=== PATIENT | female | born 2005 | race African-American/Black ===

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

== ENCOUNTER 2025-01-13 05:45 | Emergency (ER) | payer MEDICAID, SELFPAY ==
[2025-01-13 06:13] VITALS: PULSE 100; RESP 18; O2SAT 94; BMI 17.2
[2025-01-13 06:51] LABS: Hemoglobin 12.4 g/dl (12.0-16.0); SCAN SMEAR FLAG 1
[2025-01-13 06:53] LABS: Hematocrit 37.0 % (37.0-47.0); Imm Gran Abs Auto 0.03 X10*3/uL (0.00-0.03); Imm Gran Pct Auto 0.3 % (0.0-0.4); Lymphocytes Absolute Auto 0.6 X10*3/uL (1.2-4.9); MANUAL DIFF FLAG SCAN; Mean Corpuscular HGB Conc 33.5 g/dl (31.0-35.0); Mean Corpuscular Hemoglobin 24.9 pg (27.0-33.0); Mean Corpuscular Volume 74.3 fL (80.0-98.0); NRBC Abs Auto 0.030 X10*3/uL (0.0-0.012); NRBC Pct Auto 0.3 /100WBC (0.0-0.2); PLT ABN DIST 1; Platelet Count 245 X10*3/uL (160-400); Red Blood Count 4.98 X10*6/uL (4.20-5.50); White Blood Count 9.1 X10*3/uL (4.8-10.8)
[2025-01-13 07:00] LABS: Alanine Aminotransferase 31 U/L (0-31); Albumin Level 5.2 g/dL (3.5-5.0); Anion Gap 18 (12-20); Aspartate Amino Transferase 31 U/L (5-31); Blood Urea Nitrogen 16 mg/dL (9-16); Calcium 9.7 mg/dL (8.4-10.2); Carbon Dioxide 18 mmol/L (22-29); Chloride 109 mmol/L (96-108); Creatinine Clr Calc Pharmacy 86.9; Estimated Glomerular Filt Rate > 60; Lipase 37 U/L (8-78); Potassium 3.6 mmol/L (3.3-5.1); Sodium 141 mmol/L (135-145); Total Protein 7.8 g/dL (6.5-8.0)
[2025-01-13 07:27] LABS: Alkaline Phosphatase 79 U/L (39-117)
--- OUTSIDE RECORDS SUMMARY | 2025-01-13 07:46 | XMS_ITS | Clinical Summary ---
Author Organization [employer] Address [address] [place] [address] Care Team Providers Care Rough Rice Tender Name Role Phone Peggy Martin DO Primary Care Provider [phone] Allergies No known active allergies Medications * This document contains information received from the source organization and may not represent a complete record from that organization. naloxone (Narcan) 4 mg/0.1 mL nasal spray FOR SUSPECTED OPIOID OVERDOSE. SPRAY 0.1mL IN ONE NOSTRIL. REPEAT IN ALTERNATE NOSTRIL 2-3 MINUTES IF NEEDED. SEEK MEDICAL ATTENTION IMMEDIATELY EVEN IF PATIENT RESPONDS. 06/08/19 23 Active ondansetron ODT (Zofran-ODT) 4 MG disintegrating tablet Take 4 mg by mouth every 8 (eight) hours if needed. 11/30/19 24 Active pyridoxine (B-6) 50 MG tablet Take 50 mg by mouth Once per day. 03/02/20 24 Active pantoprazole (ProtoNix) 40 MG EC tablet Take 40 mg by mouth Once per day. 02/11/20 24 Active famotidine (Pepcid) 20 MG tablet Take 20 mg by mouth if needed in the morning and at bedtime. 03/02/20 24 Active Fluocinolone Acetonide Scalp (Capulin-Smoothe/FS Scalp) 0.01 % oilIndications:Shashi orrheic dermatitis Apply before bed to a damp scalp. Wrap with head covering. Wash off in AM as directed. Use 3x /week for treatment and 1-2x/week for maintenance. 120 mL 3 03/07/20 24 Active ketoconazole (NIZOral) 2 % shampooIndications :Seborrheic dermatitis Use in AM after applying Capulin-smoothe oil the night before 120 mL 2 03/07/20 24 025 Active atomoxetine (Strattera) 25 MG capsuleIndications :Attention deficit hyperactivity disorder (ADHD), predominantly inattentive type Take 1 capsule (25 mg) by mouth Once per day. Swallow capsule whole; do not open. If opened accidentally, do not touch eyes; wash hands immediately (product is an eye irritant). 30 capsule 08/23/19 25 Active hydrOXYzine HCl (Atarax) 25 MG tabletIndications: Disruptive mood dysregulation disorder (CMS/HCC) Take 1 tab po BID prn anxiety 30 tablet 1 08/23/19 25 Active tacrolimus (Protopic) 0.1 % ointmentIndication s:Atopic dermatitis of face Apply topically to affected areas as directed prn 30 g 3 08/23/19 25 Active mirtazapine (Remeron) 7.5 MG tabletIndications: Disruptive mood dysregulation disorder (CMS/HCC) Take 1 tablet (7.5 mg) by mouth at bedtime. 30 tablet 2 09/25/19 25 Active Hospital, Clinic, or Other Facility Administered Medication Ordered Dose Route Frequency Start Date End Date Status lidocaine 2 % gelIndications:Encounter for initial insertion of intrauterine contraceptive device TOP As needed 09/03/2024 Active Active Problems Patient Care Coordination No te Formatting of this note migh t be different from the original. C3/CM Mena Stoddard RN Problem Noted Date Diagnosed Date Teen parent 08/24/2024 Iron deficiency anemia 02/11/2024 Overview (08/24/2024): Hgb <9 or Hct < 27% OR [...] TIBC Serum iron Folate B12 Reticulocyte count Cannabis abuse 06/07/2022 Disruptive mood dysregulation disorder Attention deficit hyperactivity disorder 021 Mild intermittent asthma 09/08/2016 Resolved Problems Problem Noted Date Diagnosed Date Resolved Date Normal intrauterine , antepartum 06/03/2024 08/24/2024 Encounter for elective induction of labor 06/03/2024 08/24/2024 Overview (08/24/2024): 06/03/24 1900 admit to CBC 1930 VE 1/80/-1 Cooks catheter placed and #1 miso 25mcg oral given Positive GBS test 05/12/2024 08/24/2024 Overview (08/24/2024): Reviewed tx necessary in labor. Hyperemesis affecting , antepartum 01/05/2024 08/24/2024 Overview (08/24/2024): Taking Vit B6, unisom, zofran, & reglan. 01/05/24: at 18w still with extended vomiting--> came to CBC triage for IV hydration. Irregular periods 12/09/2022 08/24/2024 Encounters * This document contains information received from the source organization and may not represent a complete record from that organization. Date Type Department Care Team Description 01/01/2025 Telephone [facility] [address] [place] [address] Peggy Martin, DO Care Management (C3CM follow up call) 11/29/2024 Telephone [facility] [address] [place] [address] Peggy Martin, DO Care Management (C3CM follow up call) 11/29/2024 Travel 11/16/2024 Telephone [facility] [address] [place] [address] Peggy Martin DO No Show (PT no show to 19 yr pe. Transfer patient to adult team. Message forward to Antonia. Per Mario Transfer to erik If possible. ) 11/15/2024 Telephone [facility] [address] [place] [phone] Peggy Martin DO CHART PREP 11/09/2024 Patient Outreach [address] [phone] Peggy Martin DO Pre-visit Planning (SDOH screening is negative and Tobacco screening is positive) 11/06/2024 10:00 AM EDT Procedure Visit [address] [phone] Andressa Capps CNM Checking of intrauterine device (Primary Dx); Screening examination for venereal disease 11/06/2024 Travel 11/05/2024 Telephone [facility] [address] [place] [phone] Nakita Fierro [place] 11/05/[address] [phone] Peggy Martin DO Care Management ([facility] TC #2-lvm) 10/25/[address] [phone] Peggy Martin DO Medication Question 10/24/2024 Patient Outreach [address] [phone] Peggy Martin DO Transition Of Care (Tcm) (HDF- Unscheduled ) 10/17/2024 Orders Only GENERIC EXTERNAL DATA DEPARTMENT Provider, Generic External Data 10/16/[address] [phone] Peggy Martin DO Care Management ([facility] TC #1-unable to lvm) from Last 3 Months Immunizations Immunization Administration Dates Next Due DTaP 06/09/2009, 7,2005,09/01 DTaP, 5 pertussis antigens 2005 Hep A, ped/adol, 2 dose 11/15/2006,05/10/2006 Hep B, Adolescent or Pediatric 2005,2005,2005 HiB, unspecified 11/15/2006,2005, 6 Hib (PRP-T) 2005 IPV 06/09/2009, 6,2005,06/18 Influenza injectable quadriv alent preservative free 02/22/2022,06/17/2021,12/18/2019 Influenza, seasonal, injecta ble, preservative free 02/02/2024 MMR 06/09/2009,05/10/2006 Meningococcal MCV4P ACYW-135 09/08/2016 Pneumococcal Conjugate PCV 13 11/15/2006 ,2005,2005,06/18 Tdap 03/27/2024,09/17/2016 Varicella 06/09/2009,05/10/2006 Social History Tobacco Use Types Packs/Day Years Used Date Smoking Tobacco: Never Passive Smoke Exposure: Never Smokeless Tobacco: Never Tobacco Cessation:Counseling Given: Not Answered Alcohol Use Standard Drinks/Week Comments Yes 0 (1 standard drink = 0.6 oz pur e alcohol) Depression Answer Date Recorded Patient Health Questionnaire-9 Score 12 09/24/2024 Patient Health Questionnaire-9 Score 12 09/24/2024 Last PHQ-9: Questionnaire Data Not on file 0 09/24/2024 Housing Stability Answer Date Recorded What is your housing situation today? I have alison luo 01/25/[address] you li ve. Do you have problems with any of the following? None of the above 01/25/2024 Food Insecurity Answer Date Recorded Within the past 12 months, y ou worried that your food would run out before you got money to buy more: Never True 11/09/2024 Within the past 12 months,th e food you bought just didn't last and you didn't have enough money to get more: Never True Transportation Answer Date Recorded In the past 12 months, has l ack of transportation kept you from medical appts, meetings, work or from getting things needed for daily living? No 01/25/2024 Utilities Answer Date Recorded In the past 12 months, has t he electric, gas, oil or water company threatened to shut off services in your home? No 01/25/2024 Depression Answer Date Recorded Patient Health Questionnaire-2 Score 4 09/24/2024 Internet Access Answer Date Recorded Internet Access Q1 Yes 01/25/2024 Internet Access Q2 Not on file 01/25/2024 Comments No Intention Date Recorded No desire to become (finding) 0 11/06/2024 Sex and Gender Information Value Date Recorded Sex Assigned at Female 01/25/2022 10:18 AM EDT Legal Sex Female 10:18 AM EDT Gender Identity Female 01/25/2022 10:18 AM EDT Sexual Orientation Bisexual 01/25/2022 10 :18 AM EDT Last Filed Vital Signs Vital Sign Reading Time Taken Comments Blood Pressure 98/68 11/06/2024 10:17 AM EDT Pulse 65 11/06/2024 10:17 AM EDT Temperature 36.8 C (98.2 F) 11/06/2024 10:17 AM EDT Respiratory Rate 12 11/06/2024 10:17 AM EDT Oxygen Saturation 98% 11/06/2024 10:17 AM EDT Inhaled Oxygen Concentration - - Weight 47.6 kg (105 lb) 11/06/2024 10:17 AM EDT Height 154.9 cm (5' 1 ) 09/24/2024 3:33 PM EDT Body Mass Index 19.84 09/24/2024 3:33 PM EDT Plan of Treatment Upcoming Encounters Date Type Department Care Team (Late st Contact Info) Description 02/06/2025 2:00 PM EST Office Visit [facility] [address] [place] [address] Amanda Hagan MD [address] [place] [address] Health Maintenance Due Date Last Done Comments HIV Screening 2005 Fluoride Varnish 01/03/2006 Pneumococcal Vaccine: Pediatrics (0 to 5 Years) and At-Risk Patients (6 to 49) Years (1 of 1 - PPSV23) 2011 11/15/2006, 2005, 2005, Additional history exists HPV Vaccines (1 - 3-dose series) 2020 Meningococcal B Vaccine (1 of 2 - Standard) 2021 Hepatitis C Screening 2023 COVID-19 Vaccine ( - season) 2024 02/11/2022, 04/22/2021, 08/31/2020, Additional history exists Influenza Vaccine (#1) 2024 , 02/22/2022, 06/17/2021, Additional history exists Depression Monitoring 03/26/2025 09/24/2024, 025 Disability Screening 08/22/2025 08/22/2024 Tobacco Screening 09/24/2025 09/24/2024 Alcohol/Substance Use Screening 11/06/2025 11/06/2024 Chlamydia and Gonorrhea Screening 11/06/2025 11/06/2024, 05/10/2024, 10/05/2023, Additional history exists Family Planning (PISQ) 11/06/2025 11/06/2024 SDOH Screening 11/09/2025 11/09/2024 DTaP/Tdap/Td Vaccines (8 - Td or Tdap) 03/27/2034 03/27/2024, 09/17/2016, 06/09/2009, Additional history exists Zoster Vaccines (1 of 2) 2055 RSV Patients and Patients Aged 60 years or older (1 - 1-dose 75+ series) 2080 Hepatitis B Vaccines Completed 2005, 2005, 2005 HIB Vaccines Completed 11/15/2006, 10/26, 2005, Additional history exists Hepatitis A Vaccines Completed 11/15/2006, 05/10/19 07 IPV Vaccines Completed 06/09/2009, 10/26, 2005, Additional history exists MMR Vaccines Completed 06/09/2009, 05/10/2006 Varicella Vaccines Completed 06/09/2009, 05/10/2006 Meningococcal Vaccine Aged Out 09/08/2016 No bailee aniya eligible based on patient's age to complete this topic RSV under 20 months Aged Out No longe r eligible based on patient's age to complete this topic Rotavirus Vaccines Aged Out No longer eligible based on patient's age to complete this topic Procedures Procedure Name Priority Date/Time Associated Diagnosis Comments CHLAMYDIA/N. GONORRHOEAE RNA, TMA, UROGENITAL Routine 11/06/2024 11:10 AM EDT Screening examination for venereal disease DRUG MONITOR, PANEL 1, SCREEN, URINE Routine 10/17/2024 10:35 AM EDT URINALYSIS, COMPLETE Routine 10/17/2024 10:35 AM EDT HCG, QL, URINE Routine 10/17/2024 10:35 AM EDT COVID-19 ID NOW (GONZALEZ) Routine 10/17/2024 10:20 AM EDT ETHANOL Routine 10/17/2024 10:20 AM EDT COMPREHENSIVE METABOLIC PANEL Routine 10/17/2024 10:20 AM EDT ACETAMINOPHEN LEVEL Routine 10/17/2024 1 0:20 AM EDT SALICYLATE Routine 10/17/2024 10:20 AM EDT CBC WITH AUTO DIFFERENTIAL Routine 10/17/2024 10:20 AM EDT from Last 3 Months Results * Chlamydia/N. Gonorrhoeae RNA, TMA, Vagina (11/06/2024 11:10 AM EDT) Pathologist [facility] CT PCR NOT DETECTED Not Detect. [facility] Comment:A not detected test result does not exclude the possibilityof infection because test results can be affected byimproper specimen collection, concurrent antibiotic therapy,or the number of organisms in the specimen which may bebelow the sensitivity of the test. As with many diagnostictests, results from the Xpert CT/NG assay should beinterpreted in conjunction with other laboratory andclinical data available to the clinician.Xpert CT/NG performance has not been evaluated in patientsless than 14 years of age. The assay should not be used forthe evaluationof suspected sexual abuse or for other medico-legalindications. Additional testing is recommended in anycircumstance when false positive or false negative resultscould lead to adverse medical, social or psychologicalconsequences. NG PCR NOT DETECTED Not Detect. [facility] Comment:A not detected test result does not exclude the possibilityof infection because test results can be affected byimproper specimen collection, concurrent antibiotic therapy,or the number of organisms in the specimen which may bebelow the sensitivity of the test. As with many diagnostictests, results from the Xpert CT/NG assay should beinterpreted in conjunction with other laboratory andclinical data available to the clinician.Xpert CT/NG performance has not been evaluated in patientsless than 14 years of age. The assay should not be used forthe evaluationof suspected sexual abuse or for other medico-legalindications. Additional testing is recommended in anycircumstance when false positive or false negative resultscould lead to adverse medical, social or psychologicalconsequences. Swab Vaginal structure / Unknown 11/06/2024 11:10 AM EDT 11/06/2024 4:23 PM EDT us Andressa AVALOS LAB MICROBIOLOGY - GENERA L ORDERABLES Final Result [facility] [address] [place] [phone] * (ABNORMAL) Drug Monitoring, Panel 1, Screen, Urine (10/17/2024 10:35 AM EDT) Opiate Screen Urine Not Detected Not Detect [facility] Comment:Opiate cut-off is 30 0 ng/mL.Positive results are unconfirmed and should not be used fornon-medical purposes. Barbiturates, Urine Not Detected Not Detect [facility] Comment:Barbiturate cut-off is 200 ng/mL.Positive results are unconfirmed and should not be used fornon-medical purposes. Phencyclidine Screen Urine Not Detected Not Detect [facility] Comment:Phencyclidine cut-of f is 25 ng/mL.Positive results are unconfirmed and should not be used fornon-medical purposes. Amphetamine Screen Urine Not Detected Not Detect [facility] Comment:Amphetamine cut-off is 1000 ng/mL.Positive results are unconfirmed and should not be used fornon-medical purposes. Benzodiazepines Screen Urine Not Detected Not Detect [facility] Comment:Benzodiazepine cut-o ff is 200 ng/mL.Positive results are unconfirmed and should not be used fornon-medical purposes. Cocaine Screen Urine Not Detected Not Detect [facility] Comment:Cocaine cut-off is 3 00 ng/mL.Positive results are unconfirmed and should not be used fornon-medical purposes. Cannabinoid Screen Urine POSITIVE(A) Not Detect [facility] Comment:Cannabinoid cut-off is 50 ng/mL.Positive results are unconfirmed and should not be used fornon-medical purposes. Methadone Screen, Urine Not Detected Not Detect ng/mL [facility] Comment:Methadone cut-off is 300 ng/mL.Positive results are unconfirmed and should not be used fornon-medical purposes. FENTANYL URINE Not Detected Not Detect [facility] Comment:Fentanyl cut-off is 1 ng/mL.Positive results are unconfirmed and should not be used fornon-medical purposes. Oxycodone Urine Screen Not Detected Not Detect ng/mL [facility] Comment:Oxycodone cut-off is 100 ng/mL.Positive results are unconfirmed and should not be used fornon-medical purposes. Buprenorphine Screen Not Detected Not Detect ng/mL [facility] Comment:Buprenorphine cut-of f is 5 ng/mL.Positive results are unconfirmed and should not be used fornon-medical purposes. 10/17/2024 10:3 5 AM EDT 10/17/2024 10:39 AM EDT us Generic External Data Provider LAB URINE ORDERAB LES Final Result [facility] [address] [place] [phone] * HCG, Qualitative, Urine (10/17/2024 10:35 AM EDT) Urine NEGATIVE NEGATIVE [facility] Comment:This test was develo ped to detect early . Falsenegative results may occur after the 5th - 7th week ofpregnancy when using this test method. If clinicallyindicated, consider a serum hCG. 10/17/2024 10:3 5 AM EDT 10/17/2024 10:39 AM EDT us Generic External Data Provider LAB URINE ORDERAB LES Final Result Performing Organization Address [facility]/ZIP Co de Phone Number [facility] [address] [place] [address] [phone] * (ABNORMAL) Urinalysis Complete (10/17/2024 10:35 AM EDT) Color Urine Yellow [facility] Appearance Urine Clear [facility] PH 6.0 5.0 - 9.0 [facility] Glucose Urine UA Negative Negative mg/dL [facility] Urine Blood Negative Negative [facility] Specific [place] - Urine >=1.030(H) 1.005 - 1.025 [facility] Urine Protein 30 (1+)(A) Neg-Trace mg/dL [facility] Urine Ketones 15 Negative mg/dL [facility] Nitrite Urine Negative Negative [facility] Leukocyte Esterase Urine Trace(A) Negative [facility] RBC Urine 0-2 0 - 2 /HPF [facility] Urine WBC 0-5 0 - 5 /HPF [facility] Urine Squamous Epithelial Cell 3-5 0 - 2 /HPF [facility] Urine Bacteria Trace None Seen [facility] Hyaline Casts, Urine 3-5 0 - 2 /LPF [facility] 10/17/2024 10:3 5 AM EDT 10/17/2024 10:39 AM EDT us Generic External Data Provider LAB URINE ORDERAB LES Final Result Performing Organization Address [facility]/ZIP Co de Phone Number [facility] [address] [place] [address] [phone] * COVID-19 ID NOW (GONZALEZ) (10/17/2024 10:20 AM EDT) IDNOW SERIAL# [id number] [facility] COVID-19 TEST Negative Negative [facility] COVID-19 NOTE See Note [facility] Comment: Results are for the identification of SARS-CoV2 RNA. TheSARS-CoV2 RNA is generally detectable in respiratory samplesduring the acute phase of infection. Positive results areindicative of the presence of SARS-CoV-2 RNA; clinicalcorrelation with patient history and other diagnosticinformation is necessary to determine patient infectionstatus. Positive results do not rule out bacterial infectionor co- infection with other viruses.Testing facilities within the [facility] and itsterritories are required to report all positive results tothe appropriate public health authorities.Negative results should be treated as presumptive and, ifinconsistent with clinical signs and symptoms or necessaryfor patient management, should be tested with differentauthorized or cleared molecular tests. Negative results donot preclude SARS-CoV2 RNA infection and should not be usedas the sole basis for patient management decisions. Negativeresults should be considered in the context of a patient'srecent exposures, history and the presence of clinical signsand symptoms consistent with COVID-19.This test has been authorized by the FDA under an EmergencyUse Authorization (EUA) for use by authorized laboratories.Testing performed on the Gonzalez ID NOW utilizing NAAT. 10/17/2024 10:2 0 AM EDT 10/17/2024 11:05 AM EDT us Generic External Data Provider LAB MOLECULAR ISABEL GNOSTICS ORDERABLES Final Result [facility] [address] [place] [phone] [phone] * Ethanol (10/17/2024 10:20 AM EDT) ETHANOL (MG/DL) IN SER/PLAS <10 mg/dL [facility] Comment:Serum/plasma ethanol results are to be used formedical/treatment purposes only. 10/17/2024 10:2 0 AM EDT 10/17/2024 10:26 AM EDT us Generic External Data Provider LAB BLOOD ORDERAB LES Final Result [facility] [address] [place] [phone] [phone] * (ABNORMAL) CBC auto differential (10/17/2024 10:20 AM EDT) White Blood Count 9.1 4.8 - 10.8 X10*3/uL [facility] Red Blood Count 4.99 4.20 - 5.50 X10*6/uL [facility] Hemoglobin 12.0 12.0 - 16.0 g/dl [facility] Hematocrit 36.5(L) 37.0 - 47.0 % [facility] Mean Corpuscular Volume 73.1(L) 80.0 - 98.0 fL [facility] Mean Corpuscular Hemoglobin 24.0(L) 27.0 - 33.0 pg [facility] Mean Corpuscular HGB Conc 32.9 31.0 - 35.0 g/dl [facility] Red Cell Distribution Width 17.7(H) 11.0 - 16.0 % [facility] Platelet Count 224 160 - 400 X10*3/uL [facility] Mean Platelet Volume 10.5 9.4 - 12.3 fL [facility] Neutrophils Percent Auto 83.0(H) 45 - 73 % [facility] Imm Gran Pct Auto 0.3 0.0 - 0.4 % [facility] Lymphocytes Percent Auto 12.0(L) 20 - 40 % [facility] Monocytes Percent Auto 4.3 2 - 11 % [facility] Eosinophils Percent Auto 0.1 0 - 4 % [facility] Basophils Percent Auto 0.3 0 - 2 % [facility] NRBC Pct Auto 0.0 0.0 - 0.2 /100WBC [facility] Neutrophils Absolute Auto 7.5 2.0 - 8.3 x10*3/uL [facility] Imm Gran Abs Auto 0.03 0.00 - 0.03 X10*3/uL [facility] Lymphocytes Absolute Auto 1.1(L) 1.2 - 4.9 X10*3/uL [facility] Monocytes Absolute Auto 0.4 0.1 - 1.2 X10*3/uL [facility] Eosinophils Absolute Auto 0.0 0.0 - 0.4 X10*3/uL [facility] Basophils Absolute Auto 0.0 0.0 - 0.2 X10*3/uL [facility] NRBC Abs Auto 0.000 0.0 - 0.012 X10*3/uL [facility] 10/17/2024 10:2 0 AM EDT 10/17/2024 10:26 AM EDT Generic External Data Provider LAB BLOOD ORDERAB LES Final Result Performing Organization Address City/[facility]/ZIP Co de Phone Number [facility] [address] [place] [phone] * Acetaminophen level (10/17/2024 10:20 AM EDT) Acetaminophen LAB <3 <30 mcg/mL [facility] 10/17/2024 10:2 0 AM EDT 10/17/2024 10:26 AM EDT Generic External Data Provider LAB BLOOD ORDERAB LES Final Result Performing Organization Address [facility]/ZIP Co de Phone Number [facility] [address] [place] [phone] * (ABNORMAL) Salicylate (10/17/2024 10:20 AM EDT) Salicylate <5.0(L) 15 - 30 mg/dL [facility] 10/17/2024 10:2 0 AM EDT 10/17/2024 10:26 AM EDT us Generic External Data Provider LAB BLOOD ORDERAB LES Final Result [facility] [address] [place] [phone] * (ABNORMAL) Comprehensive Metabolic Panel (10/17/2024 10:20 AM EDT) Sodium 141 135 - 145 mmol/L [facility] Potassium 3.7 3.3 - 5.1 mmol/L [facility] Chloride 109(H) 96 - 108 mmol/L [facility] Carbon Dioxide 23 22 - 29 mmol/L [facility] Anion Gap 13 12 - 20 [facility] Urea Nitrogen (BUN) 18(H) 9 - 16 mg/dL [facility] Creatinine, Serum 0.73 0.5 - 1.4 mg/dL [facility] Creatinine Clr Calc Pharmacy 87.6 [facility] Comment:Provided height and weight: 154.94 cm,44.8 kg.eGFR (calculated from the MDRD study equation) and eCrCl(calculated from the Cockcroft-Gault equation) are based ondifferent parameters and may not yield comparable results.If eCrCl result is absurd, please check patient'sheight/weight. Estimated Glomerular Filt Rate >60 [facility] Comment:Chronic Kidney Disea se: Estimated GFR < 60 mL/min/1.33g7Dekhlh Kidney Disease: Estimated GFR < 15 mL/min/1.73m2 Glucose 92 60 - 115 mg/dL [facility] Calcium 9.2 8.4 - 10.2 mg/dL [facility] Bilirubin, Total 0.8 0.0 - 1.0 mg/dL [facility] Aspartate Amino Transferase 22 5 - 31 U/L [facility] Alanine Aminotransferase 25 0 - 31 U/L [facility] Total Protein 7.5 6.5 - 8.0 g/dL [facility] Albumin Level 4.9 3.5 - 5.0 g/dL [facility] Alkaline Phosphatase 85 39 - 117 U/L [facility] [facility] 10/17/2024 10:2 0 AM EDT 10/17/2024 10:26 AM EDT us Generic External Data Provider LAB BLOOD ORDERAB LES Final Result Performing Organization Address City/State/[facility] Co de Phone Number [facility] [address] [place] [address] [phone] from Last 3 Months Insurance [facility] Care Teams Rough Rice Tender Relationship Specialty Start Date End Date Peggy Martin DO [address] [place] [id number] PCP - General Pediatrics 03/28/18 Syl Muniz Junior Loan Processor 02/13/24
--- OUTSIDE RECORDS SUMMARY | 2025-01-13 07:46 | XMS_ITS | Encounter Summary ---
Author Organization [employer] Address [address] [facility] 7t [place] [address] Care Team Providers Care Insurance Customer Service Specialist Name Role Phone Peggy Martin DO Primary Care Provider [phone] Reason for Visit * Reason Comments Med Refill Encounter Details Date Type Department Care Team (Late st Contact Info) Description 12/27/2022 Refill [facility] [address] [place] [address] Peggy Martin DO [address] [place], [place] [phone] Attention deficit hyperactivity disorder (ADHD), predominantly inattentive type Social History Tobacco Use Types Packs/Day Years Used Date Smoking Tobacco: Never Smokeless Tobacco: Never Alcohol Use Standard Drinks/Week Comments Never 0 (1 standard drink = 0.6 oz pur e alcohol) Depression Answer Date Recorded Patient Health Questionnaire-9 Score 0 07/30/2022 Depression Answer Date Recorded Patient Health Questionnaire-2 Score 0 07/30/2022 Comments Unknown Sex and Gender Information Value [...] Description 02/06/2025 2:00 PM EST Office Visit [facility] [address] [place], [place] [phone] Amanda Hagan MD [address] [place] [address] documented as of this encounter Visit Diagnoses Diagnosis Attention deficit hyperactivity disorder (ADHD), predominantly inattentive type documented in this encounter Additional Health Concerns Assessment Noted Time PHQ-9 Depression Total Score: 0 07/31/19 23 5:07 PM EDT documented as of this encounter Care Teams Insurance Customer Service Specialist Relationship Specialty Start Date End Date Peggy Martin DO [address] [place] [address] PCP - General Pediatrics 03/28/18 Syl Muniz Otr Van Cdl Truck Driver 02/13/24 documented as of this encounter
--- OUTSIDE RECORDS SUMMARY | 2025-01-13 07:46 | XMS_ITS | Encounter Summary ---
Author Organization [employer] Address [address] [facility] 7t [place] [address] Care Team Providers Care Cobol Application Developer Name Role Phone Peggy Martin DO Primary Care Provider [phone] Encounter Details Date Type Department Care Team ([facility] st Contact Info) Description 01/26/2024 Orders Only [facility] [address] [place], [place] [phone] Andressa Capps CNM [address] [place], [place] [phone] Social History Tobacco Use Types Packs/Day Years Used Date Smoking Tobacco: Never Passive Smoke Exposure: Never Smokeless Tobacco: Never Alcohol Use Standard Drinks/Week Comments Never 0 (1 standard drink = 0.6 oz pur e alcohol) Depression Answer Date Recorded Patient Health Questionnaire-9 Score 0 07/30/2022 Housing Stability Answer Date Recorded What is your housing situation today? I have alison luo 01/25/[address] you li ve. Do you have problems with any of the following? None of the above 01/25/2024 Food Insecurity Answer Date Recorded Within the past 12 months, y ou worried that your food would run out before you got money to buy more: Sometimes True 2023 Within the past 12 months,th e food you bought just didn't last and you didn't have enough money to get more: Sometimes True 01/25/2024 Transportation Answer Date Recorded In the past [...] Recorded Patient Health Questionnaire-2 Score 0 07/30/2022 Internet Access Answer Date Recorded Internet Access Q1 Yes 01/25/2024 Internet Access Q2 Not on file 01/25/2024 Comments Yes Sex and Gender Information Value Date Recorded Sex Assigned at Female 01/25/2022 10:18 AM EDT Legal Sex Female 10:18 AM EDT Gender Identity Female 01/25/2022 10:18 AM EDT Sexual Orientation Bisexual 01/25/2022 10 :18 AM EDT documented as of this encounter Plan of Treatment Upcoming Encounters Date Type Department Care Team (Late st Contact Info) Description 02/06/2025 2:00 PM EST Office Visit [facility] [address] [place] [address] Amanda Hagan MD [address] [place] [address] documented as of this encounter Visit Diagnoses Not on filedocumented in this encounter Additional Health Concerns Assessment Noted Time PHQ-9 Depression Total Score: 0 07/31/19 23 5:07 PM EDT documented as of this encounter Care Teams Cobol Application Developer Relationship Specialty Start Date End Date Peggy Martin DO [address] [place] [address] PCP - General Pediatrics 03/28/18 Syl Muniz Assistant Director 02/13/24 documented as of this encounter
--- OUTSIDE RECORDS SUMMARY | 2025-01-13 07:46 | XMS_ITS | Encounter Summary ---
Author Organization [employer] Address [address] [facility] 7t [place] [address] Care Team Providers Care Camera Prototyping Engineer Name Role Phone Peggy Martin DO Primary Care Provider [phone] Reason for Visit * Reason Comments Med Refill Encounter Details Date Type Department Care Team (Late st Contact Info) Description 05/15/2022 Refill [facility] [address] [place] [address] Peggy Martin DO [address] [place], [place] [phone] ADHD (attention deficit hyperactivity disorder), combined type [...] Description 02/06/2025 2:00 PM EST Office Visit [facility] [address] [place] [phone] Amanda Hagan MD [address] [place], [place] [phone] documented as of this encounter Visit Diagnoses Diagnosis ADHD (attention deficit hyperactivity disorder), combined type Attention deficit disorder with hyperactivity documented in this encounter Care Teams Camera Prototyping Engineer Relationship Specialty Start Date End Date Peggy Martin DO [address] [place] [id number] PCP - General Pediatrics 03/28/18 Syl Muniz Automobile Appraiser 02/13/24 documented as of this encounter
--- OUTSIDE RECORDS SUMMARY | 2025-01-13 07:46 | XMS_ITS | Clinical Summary ---
Author Organization [facility] Address [address] [address] Phone Care Team Providers Care Nitric Acid Concentrator Operator Name Role Phone Peggy Martin DO Primary Care Provider [phone] Allergies No known active allergies Medications famotidine [...] (06/03/2024): 06/03/241899 admit to [facility] 1930 VE 1/80/-1 Cooks [...] complaints 06/03/241899 admit to [facility] 1930 VE 1/80/-1 Cooks [...] Assessment & Plan (06/03/2024 7:56 PM EDT): Vistaril ordered for tonight Assessment & Plan (01/03/2024 [...] might be interested in Phexxi GBS pos Feeding Plan Formula Assessment & Plan (06/01/2024 4:57 PM EST): Eloisa is here with her partner. She is doing well but ready for baby to be out! Baby is moving well. Would like membrane sweep today. SVE /-2 soft, posterior. Membranes swept. Discussed risks and benefits of induction. She would like induction as soon as possible. Scheduled for Tuesday evening. Feels comfortable with labor warnings and when to call. Assessment & Plan (05/26/2024 7:49 PM EST): Eloisa is a 19 y.o. at 39w0d doing well. Denies VB/LOF/Ctxs. + FM. Discussed options for VE and Membrane sweep - VE done with consent and cervix still internally closed but soft - she would be interested in membrane sweep at [place] if no spontaneous labor. We discussed post [...] (02/10/2024 8:13 PM EST): Pt presents to [facility] c/o continuous vomiting for the past 18 hours. States she has had short intervals of reprieve and then it would start again. Pt reports stomach pain that feels like her stomach is being ripped out. Baby has been active. She denies vb, lof, ctxs. Pt states the last time she ate was yesterday evening--Buraniya Jerry, then she woke at 2am with vomiting. Pt denies diarrhea, fever, urinary sx. PT tried to take zofran and pepcid today but could not tolerate. Pt has been seen at [facility] for this complaint before. Encounters Date Type Department Care Team Description 11/01/2024 4:00 PM EDT Office Visit [facility] [address] [address] Rigo Boogie, ANDRY Encounter for removal of sutures (Primary Dx) from Last 3 Months Immunizations [...] Standard) 2021 ADOLESCENT UNIVERSAL LIPID SCREENING 2022 CHLAMYDIA SCREENING 10/04/2024 10/05/2023 INFLUENZA VACCINE (#1) 2024 , 02/22/2022, 06/17/2021, Additional history exists COVID-19 VACCINE (2024- season) 2024 02/11/2022, 04/22/2021, 08/31/2020, Additional history exists SMOKING Hx and SMOKELESS TOBACCO SCREENING 06/03/2025 06/03/2024 BMI ASSESSMENT 11/01/2025 11/01/2024 COMBINED DTaP,Tdap,Td (8 - Td or Tdap) 03/27/2034 03/27/2024, 09/17/2016, 06/09/2009, Additional history exists HEPATITIS B VACCINES Completed 2005, 2005, 2005 HEPATITIS A VACCINES Completed 11/15/2006, 05/10/19 HIB VACCINES Completed 11/15/2006, 10/26, 2005, Additional [...] PM EDT Encounter for removal of sutures HEPATITIS C ANTIBODY, QUALITATIVE Routine 11/07/2023 3:20 [...] with no immediate complications Rigo Boogie CNP [place] MISCELLANEOUS SERVI MIRNA Final Result * Hepatitis C antibody, qualitative (11/07/2023 3:20 PM EDT) HCV NON-REACTIV E NON-REACTI VE [facility] Blood 11/07/2023 3:20 PM EDT 11/07/2023 3:30 PM EDT Cristy Garcia CNM LAB BLOOD ORDERABLES F inal Result [address] [address] * Chlamydia Trachomatis and Neisseria Gonorrhoeae Nucleic Acid Detection (10/05/2023 11:18 AM EDT) CHLAMYDIA TRACHOMATIS Not Detected Not Detected [facility] NEISERIA GONORRHOEAE Not Detected Not Detected [facility] SPECIMEN TYPE URINE [facility] Urine (Urine) 10/05/2023 11: 18 AM EDT 10/05/2023 3:25 PM EDT Cristy Garcia CNM NON CULTURE MICROBIOLO GY Final Result Performing Organization Address City/[facility]/ZIP Co de Phone Number [address] [address] from Last 3 Months or Most Recently Relevant to Health Maintenance Insurance C3 ACO C3 ACO [facility] C3 ACO [facility] C3 ACO [facility] C3 [place] [address] [address] [facility] C3 ACO Advance Directives For more information, please contact: [phone] (9AM - 5PM [place], Tuesday-Tuesday) * Full Code (Latest Code Status [...] Code Status Confirmed With: Patient Care Teams Nitric Acid Concentrator Operator Relationship Specialty Start Date End Date Peggy Martin DO [address] [place] [phone] PCP - General Pediatrics 05/16/23 Additional Source Comments The information contained in this document represents components of the legal health record. It is not the complete legal health record.[facility]
[2025-01-13 07:52] VITALS: BP 105/70; PULSE 74; RESP 18; TEMP 36.6; O2SAT 97
--- NOTE | 2025-01-13 08:04 | ED_ITS ---
HPI - Abdominal Pain General Chief Complaint: Abdominal Pain Stated Complaint: abdominal pain and vomiting Time Seen by Provider: 01/13/25 07:41 Source: patient Mode of arrival: ambulatory Limitations: no limitations History of Present Illness ED Provider: HPI narrative: 19-year-old presenting with epigastric discomfort, multiple episodes of vomiting, she is 6 months , smokes marijuana daily, symptoms started becoming worse after eating [employer]. Does not take any medications at home except for Zofran as needed for nausea and vomiting Related Data Previous Rx's ?Medication ?Instructions ?Recorded clonidine HCl 0.1 mg tablet 0.1 mg PO BEDTIME 30 days #30 tabs 10/22/24 nicotine (polacrilex) 4 mg gum 4 mg buccal Q2H PRN laverne otine 10/22/24 cravings 30 days #100 ea nicotine 21 mg/24 hr daily 21 mg transdermal DAILY PRN 10/22/24 transdermal patch smoking cessation 28 days #2 8 ea aripiprazole 2 mg tablet 2 mg PO BEDTIME as directed #14 11/05/24 tabs mirtazapine 15 mg tablet 15 mg PO BEDTIME 30 days #15 tabs 11/05/24 famotidine 20 mg tablet 20 mg PO BEDTIME #30 tabs ondansetron 4 mg disintegrating 4 mg PO Q8H PRN nausea and 01/13/25 tablet vomiting #4 tabs sucralfate 1 gram tablet (Carafate) 1 g PO Q6H 7 days #28 tabs 01/13/25 capsaicin 0.025 % topical cream 1 appl topical QID abd ominal pain 01/14/25 #120 grams prochlorperazine 25 mg rectal 25 mg TX BID PRN nausea and 01/14/25 suppository (Compazine) vomiting #12 ea Allergies Allergy/AdvReac Type Severity Reaction Status Date / Time No Known Allergies Allergy Verified 01/14/25 08:06 Review of Systems Constitutional: Reports as per HPI [facility] Past Medical History Medical History Depression MDD (major depressive disorder) PCOS (polycystic ovarian syndrome) ADHD Asthma Social History Social History Household Members: Significant Other, Family and Children Household Members Other:: Adoptive mother, partner, and their child Housing: House Do you presently have visiting nurse or other home services: No Patient Tobacco Use Status: Current everyday Tobacco user Tobacco use type: Smokeless Tobacco Years Smoked: 5 e-Cigarette/Vaping Use: Currently Using Second Hand Smoke Exposure: No Substance Use Type: Marijuana Advance Directives: No Advance Directives Information Provided: Yes Do you have a plan to hurt others: No Plan service: No Sexual orientation: Straight/Heterosexual Physical Exam ED Exam Exam: General: ?Appears of stated age, in discomfort ? no scleral icterus, dry oral mucosa ? Neck: Supple, no LAD ? ?CV: RRR, no obvious murmurs appreciated ? ?Resp: ?No wheezing rales rhonchi no stridor moving air well ? Abd: ?Bowel sounds are present, epigastric tenderness no rebound no rigidity ? ?MSK: FROM, strength 5/5 all extremities ? Skin: Warm, dry, intact, ? ?Neuro: ?Alert and oriented x3, moving upper and lower extremities symmetrically, no obvious facial asymmetry noted, cranial nerves 2-12 intact Vital Signs: Vital Signs - 24 hr 01/13/25 06:13 01/13/25 07:52 Temperature 97.9 F Pulse Rate 100 74 Respiratory Rate 18 18 Blood Pressure 105/70 Pulse Oximetry 94 97 Oxygen Delivery Method Room Air Room Air BMI result Body Mass Index 17.2 Medical Decision Making Medical Decision Making [facility] Narrative: 8:15 AM 01/13/2025 (Dr. Abraham Jamison): Patient presenting with nausea or vomiting in the setting of daily marijuana use, history of hyperemesis gravidarum, cyclic vomiting syndrome, poor diet, marijuana use disorder, blood work fairly reassuring without any evidence for dehydration or biliary pancreatic pathology, we will check for will medicate, see my discharge instructions, further imaging such as CT or ultrasound is not indicated based on my physical examination. I reviewed her CAT scan done in August of this year that was negative and last year she had abdominal ultrasounds that were negative for ovarian or pelvic pathology Differential Diagnosis Differential Diagnoses: The differential diagnosis associated with the presentation includes (Cholecystitis, pancreatitis, hepatitis, gastritis, cholangitis, choledocholithiasis, cyclic vomiting syndrome, Boerhaave syndrome) Admission/Observation Consideration of admission/observation: Escalation of care including admission/observation considered Lab Data [facility] Lab Attestation statement: I reviewed the patient's lab results. 01/13/25 06:17 01/13/25 06:17 Labs: Lab Results 01/13/25 01/13/25 Range/Units 06:17 09:17 WBC 9.1 (4.8-10.8) X10*3/uL RBC 4.98 (4.20-5.50) X10*6/uL Hgb 12.4 (12.0-16.0) g/dl Hct 37.0 (37.0-47.0) % MCV 74.3 L (80.0-98.0) fL MCH 24.9 L (27.0-33.0) pg MCHC 33.5 (31.0-35.0) g/dl RDW 14.7 (11.0-16.0) % Plt Count 245 (160-400) X10*3/uL MPV 11.2 (9.4-12.3) fL Immature Gran % (Auto) 0.3 (0.0-0.4) % Neut % (Auto) 90.9 H (45-73) % Lymph % (Auto) 6.5 L (20-40) % [place] % (Auto) 2.0 (2-11) % Eos % (Auto) 0.0 (0-4) % Baso % (Auto) 0.3 (0-2) % Lymph # (Auto) 0.6 L (1.2-4.9) X10*3/uL [place] # (Auto) 0.2 (0.1-1.2) X10*3/uL Eos # (Auto) 0.0 (0.0-0.4) X10*3/uL Baso # (Auto) 0.0 (0.0-0.2) X10*3/uL Abs Immat Gran (auto) 0.03 (0.00-0.03) X10*3/uL Absolute Neuts (auto) 8.2 (2.0-8.3) x10*3/uL Absolute Nucleated RBC 0.030 H (0.0-0.012) X10*3/uL Nucleated RBC % (auto) 0.3 H (0.0-0.2) /100WBC Smear Tech's Comments VERIFIED Sodium 141 (135-145) mmol/L Potassium 3.6 (3.3-5.1) mmol/L Chloride 109 H (96-108) mmol/L Carbon Dioxide 18 L (22-29) mmol/L Anion Gap 18 (12-20) BUN 16 (9-16) mg/dL Creatinine 0.68 (0.5-1.4) mg/dL Estim Creat Clear Calc 86.9 Estimated GFR > 60 Random Glucose 128 H (60-115) mg/dL Calcium 9.7 (8.4-10.2) mg/dL Total Bilirubin 1.6 H (0.0-1.0) mg/dL Direct Bilirubin 0.4 (0.0-0.5) mg/dL AST 31 (5-31) U/L ALT 31 (0-31) U/L Alkaline Phosphatase 79 (39-117) U/L Total Protein 7.8 (6.5-8.0) g/dL Albumin 5.2 H (3.5-5.0) g/dL Lipase 37 (8-78) U/L Urine Color Yellow Urine Appearance Clear Urine pH 7.5 (5.0-9.0) Ur Specific [place] >= 1.030 H (1.005-1.025) Urine Protein 30 (1+) H (Neg-Trace) mg/dL Urine Glucose (UA) Negative (Negative) mg/dL Urine Ketones >=160 (Negative) mg/dL Urine Blood Negative (Negative) Urine Nitrite Negative (Negative) Ur Leukocyte Esterase Trace H (Negative) Urine RBC 0-2 (0-2) /HPF Urine WBC 0-5 (0-5) /HPF Ur Squamous Epith Cells 0-2 (0-2) /HPF Urine Bacteria None Seen (None Seen) Hyaline Casts 0-2 (0-2) /LPF Tests considered The following testing was considered but not selected: CT abdomen and pelvis with IV contrast Prescription Management I considered prescription management with: Pain Medication Medications Administered Discontinued Medications Generic Name Dose Route Start Last Admin Trade Name Freq PRN Reason Stop Dose Admin Al Hydroxide/Mg Hydroxide 30 ml 01/13/25 08:05 01/13/25 08:16 Magnesium Hydrox/Alum Hydrox 30 Ml Oral.Susp PO 01/13/25 08:06 30 ml ONCE ONE Administration Droperidol 0.625 mg 01/13/25 08:05 01/13/25 08:15 Droperidol 5 Mg/2 Ml Vial IVPUSH 01/13/25 08:06 0.625 mg ONCE ONE Administration Famotidine 20 mg 01/13/25 08:05 01/13/25 08:16 Famotidine/Pf 20 Mg/2 Ml Vial IVPUSH 01/13/25 08:06 20 mg ONCE ONE Administration Sodium Chloride 1,000 mls @ 999 mls/hr 01/13/25 08:15 01/13/25 09:26 Ns IV 01/13/25 09:15 Infused .Q1H1M JADEN Infusion Lidocaine HCl 15 ml 01/13/25 08:05 01/13/25 08:19 Lidocaine Hcl Viscous 2 % 15 Ml Solution PO 01/13/25 08:06 15 ml ONCE ONE Administration Ondansetron HCl 4 mg 01/13/25 06:18 01/13/25 07:07 Ondansetron Odt 4 Mg Tab.Rapdis TRANSLINGU 01/13/25 06:19 4 mg ONCE ONE Administration Sucralfate 1 gm 01/13/25 08:05 01/13/25 08:17 Sucralfate Oral Suspension 1 Gm/10 Ml Oral.Susp PO 01/13/25 08:06 1 gm ONCE ONE Administration Critical Care Time Critical Care Time Total Critical Care Time: 32 Attestation: Time is exclusive of separately billable procedures. Time includes: direct patient care, patient reassessment, coordination of patient care, interpretation of data (laboratory data, pulse oximetry, arterial blood gases and chest xrays), review of patient's medical records, medical consultation and documentation of patient care. Procedures excluded from critical care time: central intravenous line placement and electrocardiography. Discharge Plan Discharge Clinical Impression: Vomiting Patient Disposition: Home, Self-Care Additional Instructions: For the next 1 week use Carafate 20 minutes before any meals, please eat in the morning, I recommend that you start him morning with drinking a cup of water, followed by old meal, it can be sweetened with honey, you can add a butter make it on milk make it palpable to herself but oatmeal really cold your stomach and after that you can have a cup of coffee, I very much strongly recommend that you completely admits smoking marijuana, this is likely 1 of the major contributors to the fact that you have poor appetite and sensitive stomach, on top of that you have to eat well-balanced meals I recommend not eating fast food, cocaine at home, for the next month or so I recommend soups, steamed meats, vegetables, boiled rice, nothing to fried, nothing spicy, famotidine 20 mg before bedtime, ondansetron as needed for nausea and vomiting, see a PCP for re-evaluation your blood work has been reassuring Any other issues concerns come back to the ER Prescriptions: New sucralfate [Carafate] 1 gram tablet 1 g PO Q6H 7 Days Qty: 28 0RF famotidine 20 mg tablet 20 mg PO BEDTIME Qty: 30 0RF ondansetron 4 mg tablet,disintegrating 4 mg PO Q8H PRN (Reason: nausea and vomiting) Qty: 4 0RF No Action nicotine 21 mg/24 hr Patch 24 Hour 21 mg transdermal DAILY PRN (Reason: smoking cessation) 28 Days Qty: 28 0RF Rx Instructions: remove at bedtime clonidine HCl 0.1 mg Tablet 0.1 mg PO BEDTIME 30 Days Qty: 30 0RF Protocol: Hold for SBP< HOLD for SBP < : 90 nicotine (polacrilex) 4 mg gum 4 mg buccal Q2H PRN (Reason: nicotine cravings) 30 Days Qty: 100 0RF aripiprazole 2 mg tablet 2 mg PO BEDTIME Qty: 14 0RF mirtazapine 15 mg tablet 15 mg PO BEDTIME 30 Days Qty: 15 0RF prochlorperazine [Compazine] 25 mg suppository 25 mg TX BID PRN (Reason: nausea and vomiting) Qty: 12 0RF capsaicin 0.025 % cream 1 appl topical QID Qty: 120 0RF Rx Instructions: do not wash area for at least 30 min after application Interventions: ED Discharge Assessment Last Done: 01/13/25 10:06 Discharge Date/Time: 01/13/25 10:08 Print Language: Faroese
[2025-01-13] MEDS: Magnesium Hydrox/Alum Hydrox 30 ML ORAL.SUSP PO (08:16)
[2025-01-13] MEDS: Sucralfate Oral Suspension 1 GM/10 ML ORAL.SUSP PO (08:17)
[2025-01-13] MEDS: Lidocaine HCl Viscous 2 % 15 ML SOLUTION PO (08:19)
--- NOTE | 2025-01-13 08:51 | MHC.EDTECH ---
pt made aware of a urine specimen needed
[2025-01-13 09:22] VITALS: BP 122/80; PULSE 102; RESP 18; O2SAT 95
[2025-01-13 09:25] LABS: Appearance Urine Clear; Glucose Urine UA Negative (Negative); PH 7.5 (5.0-9.0); Specific Gravity - Urine >= 1.030 (1.005-1.025); UMIC TRIGGER UACC YES
[2025-01-13 10:06] VITALS: BP 122/80; PULSE 102; RESP 18; TEMP 36.9; O2SAT 95
== END 2025-01-13 10:08 | disposition home or self-care (01) ==
PROVIDERS: Emergency Provider Emergency Medicine
DX: R11.10 Vomiting, unspecified (principal); R10.13 Epigastric pain; F17.200 Nicotine dependence, unspecified, uncomplicated; Z71.6 Tobacco abuse counseling
CPT/HCPCS: 36415; 80053; 81001; 82248; 83690; 85025; 87502; 87635; 96361; 96374; 96375; 99284; 99285; J1200; J1308; J1630; J1790

== ENCOUNTER 2025-01-13 16:29 | Emergency (ER) | payer MEDICAID, SELFPAY ==
[2025-01-13 16:46] VITALS: BP 120/68; PULSE 76; RESP 18; TEMP 36.2; O2SAT 100; BMI 18.9
--- NOTE | 2025-01-13 16:47 | ED.GENADULT ---
HPI - General Adult General Chief complaint: Abdominal Pain Stated complaint: was here earlier, abd pain increase Time Seen by Provider: 01/13/25 21:07 Source: patient, RN notes reviewed and old records reviewed Mode of arrival: ambulatory Limitations: no limitations History of Present Illness ED Provider: Dr. Selina Velasquez HPI narrative: 19-year-old female with a history of cannabis hyperemesis syndrome presenting with continued abdominal pain and nausea after being here earlier today with the same complaints. Has a history of cannabis hyperemesis but unfortunately used cannabis yesterday and has been vomiting with the abdominal pain since. She was given multiple medications when she was here earlier today including droperidol and a GI cocktail. Admits that her pain had initially improved but when she got home the pain became worse. Describes periumbilical and upper abdominal pain radiating to her chest. Denies associated diarrhea, fever, shortness of breath, hematochezia or melena, urinary complaints, vaginal bleeding or discharge. Has been feeling well prior to last night. States that she ate [employer] and began vomiting shortly thereafter. States ?I do not think it is food poisoning I think it is the marijuana?. Denies other illicit substance or alcohol use. Related Data Previous Rx's ?Medication ?Instructions ?Recorded clonidine HCl 0.1 mg tablet 0.1 mg PO BEDTIME 30 days #30 tabs 10/22/24 nicotine (polacrilex) 4 mg gum 4 mg buccal Q2H PRN nicotine 10/22/24 cravings 30 days #100 ea nicotine 21 mg/24 hr daily 21 mg transdermal DAILY PRN 10/22/24 transdermal patch smoking cessation 28 days #28 ea aripiprazole 2 mg tablet 2 mg PO BEDTIME as directed #14 11/05/24 tabs mirtazapine 15 mg tablet 15 mg PO BEDTIME 30 days #15 tabs 11/05/24 famotidine 20 mg tablet 20 mg PO BEDTIME #30 tabs 01/13/25 ondansetron 4 mg disintegrating 4 mg PO Q8H PRN nausea and 01/13/25 tablet vomiting #4 tabs sucralfate 1 gram tablet (Carafate) 1 g PO Q6H 7 days #28 tabs 01/13/25 capsaicin 0.025 % topical cream 1 appl topical QID abdominal pain 01/14/25 #120 grams prochlorperazine 25 mg rectal 25 mg MA BID PRN nausea and 01/14/25 suppository (Compazine) vomiting #12 ea Allergies Allergy/AdvReac Type Severity Reaction Status Date / Time No Known Allergies Allergy Verified 01/13/25 16:48 Review of Systems Review of Systems: as per HPI, full review of systems performed and negative but for the above mentioned pertinent positives and negatives. [facility] Past Medical History Medical History Depression MDD (major depressive disorder) PCOS (polycystic ovarian syndrome) ADHD Asthma Social History Social History Household Members: Significant Other, Family and Children Household Members Other:: Adoptive mother, partner, and their child Housing: House Do you presently have visiting nurse or other home services: No Patient Tobacco Use Status: Current everyday Tobacco user Tobacco use type: Smokeless Tobacco Years Smoked: 5 Smoked in Last 30 Days: Yes e-Cigarette/Vaping Use: Currently Using Second Hand Smoke Exposure: No Use of substances other than those prescribed or required for medical reasons: No Substance Use Type: Marijuana Advance Directives: No Advance Directives Information Provided: No Patient : No service: No Sexual orientation: Straight/Heterosexual Physical Exam ED Exam Exam: GENERAL: Ill-Appearing, appears uncomfortable. SKIN: Normal skin color for ethnicity, warm, dry, no rashes noted. HEENT:? Normocephalic, atraumatic, no stridor, dry mucous membranes, dentition intact, EOMI. NECK: Soft, supple, full ROM, midline structures nontender, no step-offs, no deformities, no lymphadenopathy. CHEST: Heart regular tachycardia, no murmurs, symmetric chest rise and fall. PULMONARY: Clear to auscultation bilaterally, diminished at the bases, no labored breathing, no wheezes/rhales/rhonchi. ABDOMINAL: Soft, nondistended, diffusely tender to palpation without rebound or guarding, positive bowel sounds in all quadrants. : Deferred. MUSCULOSKELETAL: Normal tone, full range of motion, no deformities, no peripheral edema. NEURO: Alert and oriented x3, CN II through XII intact, equal strength and sensation bilateral upper and lower extremities, no focal neurologic deficits.? PSYCHIATRIC: Flat affect, fluid speech, good eye contact and appropriate demeanor. Vital Signs: Vital Signs - 24 hr 01/13/25 16:46 01/13/25 17:02 01/13/25 20:22 Temperature 97.1 F 100.6 F H 99.4 F Pulse Rate 76 77 88 Respiratory Rate 18 16 16 Blood Pressure 120/68 126/76 132/85 Pulse Oximetry 100 100 97 Oxygen Delivery Method Room Air Room Air Room Air BMI result Body Mass Index 18.9 Course Course Course Narrative: This is a rapid medical exam performed by Yovany Das NP: Additional HPI, ROS, PE not included below will be deferred to primary provider. Patient is a 19y/o F 6 mos post , daily cannabis use presenting to the ED with ongoing epigastric pain. Seen here this morning. Able to tolerate fluids, hasn't tried eating due to pain. Better with heat. Plan; will repeat labs Medications Administered Discontinued Medications Generic Name Dose Route Start Last Admin Trade Name Freq PRN Reason Stop Dose Admin Diphenhydramine HCl 50 mg 01/13/25 21:23 01/13/25 21:29 Diphenhydramine Hcl 50 Mg/Ml Vial IVPUSH 01/13/25 21:24 50 mg ONCE ONE Administration Haloperidol Lactate 5 mg 01/13/25 21:23 01/13/25 21:29 Haloperidol Lactate 5 Mg/Ml Vial IVPUSH 01/13/25 21:24 5 mg STAT STA Administration Medical Decision Making Medical Decision Making [facility] Narrative: Patient presents today with a chief complaint of vomiting, epigastric pain. Differential diagnosis includes surgical emergency such as obstruction, enteritis, hyperglycemia, acidosis, food or drug ingestion, pancreatitis, CVA, allergic reaction such as anaphylaxis, cannabis hyperemesis syndrome or cyclic vomiting syndrome, among many others.? Patient is not showing signs of acute dehydration or hemodynamic instability.? They are having associated abdominal pain. ? Blood work is reassuring. She is starting to feel better after haloperidol and diphenhydramine. We will see how she does in the next 1/2 hour or so. If she improves, we will attempt p.o. trial. If she can not improve, we will obtain abdominal imaging. 12:49 AM 01/14/2025 (Dr. Selina Velasquez, D.O.) patient resting, feeling improved after medications. Tolerating oral intake. Using shared decision making, plan for discharge home to follow-up with primary care and/or specialist. Patient understands and agrees with plan for discharge. Discharged home in stable condition. Differential Diagnosis Differential Diagnoses: The differential diagnosis associated with the presentation includes (As above) Admission/Observation Consideration of admission/observation: Escalation of care including admission/observation considered Lab Data MDM Lab Attestation statement: I reviewed the patient's lab results. 01/13/25 16:57 01/13/25 16:57 Labs: Lab Results 01/13/25 01/13/25 Range/Units 16:57 22:26 WBC 8.2 (4.8-10.8) X10*3/uL RBC 4.68 (4.20-5.50) X10*6/uL Hgb 11.6 L (12.0-16.0) g/dl Hct 34.5 L (37.0-47.0) % MCV 73.7 L (80.0-98.0) fL MCH 24.8 L (27.0-33.0) pg MCHC 33.6 (31.0-35.0) g/dl RDW 15.0 (11.0-16.0) % Plt Count 231 (160-400) X10*3/uL MPV 10.8 (9.4-12.3) fL Immature Gran % (Auto) 0.2 (0.0-0.4) % Neut % (Auto) 87.7 H (45-73) % Lymph % (Auto) 7.1 L (20-40) % [place] % (Auto) 4.8 (2-11) % Eos % (Auto) 0.0 (0-4) % Baso % (Auto) 0.2 (0-2) % Lymph # (Auto) 0.6 L (1.2-4.9) X10*3/uL [place] # (Auto) 0.4 (0.1-1.2) X10*3/uL Eos # (Auto) 0.0 (0.0-0.4) X10*3/uL Baso # (Auto) 0.0 (0.0-0.2) X10*3/uL Abs Immat Gran (auto) 0.02 (0.00-0.03) X10*3/uL Absolute Neuts (auto) 7.2 (2.0-8.3) x10*3/uL Absolute Nucleated RBC 0.000 (0.0-0.012) X10*3/uL Nucleated RBC % (auto) 0.0 (0.0-0.2) /100WBC Sodium 140 (135-145) mmol/L Potassium 3.5 (3.3-5.1) mmol/L Chloride 111 H (96-108) mmol/L Carbon Dioxide 18 L (22-29) mmol/L Anion Gap 15 (12-20) BUN 10 (9-16) mg/dL Creatinine 0.71 (0.5-1.4) mg/dL Estim Creat Clear Calc 91.2 Estimated GFR > 60 Random Glucose 97 (60-115) mg/dL Calcium 9.2 (8.4-10.2) mg/dL Total Bilirubin 1.5 H (0.0-1.0) mg/dL AST 36 H (5-31) U/L ALT 48 H (0-31) U/L Alkaline Phosphatase 73 (39-117) U/L Total Protein 7.3 (6.5-8.0) g/dL Albumin 5.0 (3.5-5.0) g/dL Lipase 31 (8-78) U/L COVID-19 (GATO) Negative (Negative) COVID-19 Clin Com See Note Influenza Type A (CARMEN) Negative (Negative) Influenza Type B (CARMEN) Negative (Negative) Influenza A & B Note See Note Independent Historian Clinical information obtained from an independent historian. History obtained from or confirmed by: Parent External Record Review External record reviewed: Inpatient record Prescription Management I considered prescription management with: Pain Medication and Other (Antiemetics) Chronic Conditions Patient?s care impacted by: Other (Major depressive disorder, PCOS, asthma, cannabis hyperemesis syndrome) Discharge Plan Discharge Clinical Impression: Cannabinoid hyperemesis syndrome Patient Disposition: Home, Self-Care Instructions: Cyclic Vomiting Syndrome (ED) Additional Instructions: Since if your nausea is not controlled with ondansetron, you may try the prochlorperazine suppository. If you continue to have abdominal pain, try rubbing capsaicin cream on your abdomen. You can do this up to 4 times a day. Do not wash the area off immediately after use. Return to the emergency department with any new or worsening symptoms including: Worsening abdominal pain despite medications, fevers greater than 100 degrees, inability to tolerate food or drink, any new symptom that concerns you. Prescriptions: New prochlorperazine [Compazine] 25 mg suppository 25 mg MA BID PRN (Reason: nausea and vomiting) Qty: 12 0RF capsaicin 0.025 % cream 1 appl topical QID Qty: 120 0RF Rx Instructions: do not wash area for at least 30 min after application No Action nicotine 21 mg/24 hr Patch 24 Hour 21 mg transdermal DAILY PRN (Reason: smoking cessation) 28 Days Qty: 28 0RF Rx Instructions: remove at bedtime clonidine HCl 0.1 mg Tablet 0.1 mg PO BEDTIME 30 Days Qty: 30 0RF Protocol: Hold for SBP< HOLD for SBP < : 90 nicotine (polacrilex) 4 mg gum 4 mg buccal Q2H PRN (Reason: nicotine cravings) 30 Days Qty: 100 0RF aripiprazole 2 mg tablet 2 mg PO BEDTIME Qty: 14 0RF mirtazapine 15 mg tablet 15 mg PO BEDTIME 30 Days Qty: 15 0RF sucralfate [Carafate] 1 gram tablet 1 g PO Q6H 7 Days Qty: 28 0RF famotidine 20 mg tablet 20 mg PO BEDTIME Qty: 30 0RF ondansetron 4 mg tablet,disintegrating 4 mg PO Q8H PRN (Reason: nausea and vomiting) Qty: 4 0RF Print Language: Ukrainian
[2025-01-13 17:02] VITALS: BP 126/76; PULSE 77; RESP 16; TEMP 38.1; O2SAT 100
--- OUTSIDE RECORDS SUMMARY | 2025-01-13 17:02 | XMS_ITS | Encounter Summary ---
Author Organization [employer] Address [address] [facility] [address] [place] [address] Care Team Providers Care Inorganic Chemical Technician Name Role Phone Peggy Martin DO Primary Care Provider [phone] Reason for Visit * Reason Comments Med Refill Encounter Details Date Type Department Care Team (Late st Contact Info) Description 05/15/2022 Refill [facility] [address] [place] [address] Peggy Martin DO [address] [place], [place] [id number] ADHD (attention deficit hyperactivity disorder), combined type [...] Office Visit [facility] [address] [place] [address] [phone] Amanda Hagan MD [address] [place], [place] [phone] documented as of this encounter Visit Diagnoses Diagnosis ADHD (attention deficit hyperactivity disorder), combined type Attention deficit disorder with hyperactivity documented in this encounter Care Teams Inorganic Chemical Technician Relationship Specialty Start Date End Date Peggy Martin DO [address] [place] [id number] PCP - General Pediatrics 03/28/18 Syl Muniz [employer] Installation Helper 02/13/24 documented as of this encounter
--- OUTSIDE RECORDS SUMMARY | 2025-01-13 17:02 | XMS_ITS | Clinical Summary ---
Author Organization [facility] Address [address] [address] Phone Care Team Providers Care Checkering Machine Adjuster Name Role Phone Peggy Martin DO Primary Care Provider [phone] Allergies No known active allergies Medications famotidine [...] would be interested in membrane sweep at [place] if no spontaneous labor. We discussed post [...] (02/10/2024 8:13 PM EST): Pt presents to [facility] c/o continuous vomiting for the past 18 hours. States she has had short intervals of reprieve and then it would start again. Pt reports stomach pain that feels like her stomach is being ripped out. Baby has been active. She denies vb, lof, ctxs. Pt states the last time she ate was yesterday evening--Burani[employer] Jeryr, then she woke at 2am with vomiting. Pt denies diarrhea, fever, urinary sx. PT tried to take zofran and pepcid today but could not tolerate. Pt has been seen at [facility] for this complaint before. Encounters Date Type Department Care Team Description 11/01/2024 4:00 PM EDT Office Visit [facility] [address] [address] Rigo Boogie, ANDRY Encounter for removal of [...] with no immediate complications Rigo Boogie CNP [facility] Final Result * Hepatitis C antibody, qualitative (11/07/2023 3:20 PM EDT) HCV NON-REACTIV E NON-REACTI VE [facility] Blood 11/07/2023 3:20 PM EDT 11/07/2023 3:30 PM EDT Cristy aGrcia CNM LAB BLOOD ORDERABLES F inal Result [address] [address] * Chlamydia Trachomatis and Neisseria Gonorrhoeae Nucleic Acid Detection (10/05/2023 11:18 AM EDT) CHLAMYDIA TRACHOMATIS Not Detected Not Detected [facility] NEISERIA GONORRHOEAE Not Detected Not Detected [facility] SPECIMEN TYPE URINE [facility] Urine (Urine) 10/05/2023 11: 18 AM EDT 10/05/2023 3:25 PM EDT Cristy Garcia CNM NON CULTURE MICROBIOLO GY Final Result Performing Organization Address City/[facility]/ZIP Co de Phone Number [address] [phone] from Last 3 Months or Most Recently Relevant to Health Maintenance Insurance C3 ACO C[employer]CO [facility] C3 [facility]CO [facility] C3 ACO [facility] C3 [place] [address] [place] [address] [facility] C3 ACO Advance Directives For more information, please contact: [phone] (9AM - 5PM [place], Tuesday-Tuesday) * Full [...] Code Status Confirmed With: Patient Care Teams Checkering Machine Adjuster Relationship Specialty Start Date End Date Peggy Martin DO [address] [place] [id number] PCP - General Pediatrics 05/16/23 Additional Source Comments The information contained in this document represents components of the legal health record. It is not the complete legal health record.[facility]
--- OUTSIDE RECORDS SUMMARY | 2025-01-13 17:02 | XMS_ITS | Clinical Summary ---
Author Organization [employer] Address [address] [facility] [address] [place] [address] Care Team Providers Care Cotton Bag Sewer Name Role Phone Peggy Martin DO Primary Care Provider [phone] Allergies No known active allergies Medications * [...] bedtime. 03/02/20 24 Active Fluocinolone Acetonide Scalp ([place]-Smoothe/FS Scalp) 0.01 % oilIndications:Shashi orrheic dermatitis Apply before bed to a damp scalp. Wrap with head covering. Wash off in AM as directed. Use 3x /week for treatment and 1-2x/week for maintenance. 120 mL 3 03/07/20 24 Active ketoconazole (NIZOral) 2 % shampooIndications :Seborrheic dermatitis Use in AM after applying [place]-smoothe oil the night before 120 mL 2 [...] Type Department Care Team Description 01/01/2025 Telephone [facility] [address] [place] [address] Peggy Martin, DO Care Management (C3CM follow up call) 11/29/2024 Telephone [facility] [address] [place] [address] Peggy Martin, DO Care Management (C3CM follow up call) 11/29/2024 Travel 11/16/2024 Telephone [facility] [address] [place] [address] Peggy Martin DO No Show (PT no show to 19 yr pe. Transfer patient to adult team. Message forward to Antonia. Per Mario Transfer to erik If possible. ) 11/15/2024 Telephone [facility] [address] [place] [phone] Peggy Martin DO CHART PREP 11/09/2024 Patient Outreach [address] [address] Peggy Martin DO Pre-visit Planning (SDOH screening is negative and Tobacco screening is positive) 11/06/2024 10:00 AM EDT Procedure Visit [address] [address] Andressa Capps CNM Checking of intrauterine device (Primary Dx); Screening examination for venereal disease 11/06/2024 Travel 11/05/2024 Telephone [facility] [address] [place] [phone] Nakita Fierro [place] 11/05/[address] [address] Peggy Martin DO Care Management ([facility] TC #2-lvm) 10/25/[address] [address] Peggy Martin DO Medication Question 10/24/2024 Patient Outreach [address] [address] Peggy Martin DO Transition Of Care (Tcm) (HDF- Unscheduled ) 10/17/2024 Orders Only GENERIC EXTERNAL DATA DEPARTMENT Provider, Generic External Data 10/16/[address] [address] Peggy Martin DO Care Management ([facility] TC #1-unable to lvm) from Last 3 [...] Description 02/06/2025 2:00 PM EST Office Visit [facility] [address] [place] [address] Amanda Hagan MD [address] [place] [address] Health Maintenance Due Date Last Done Comments [...] TMA, Vagina (11/06/2024 11:10 AM EDT) Pathologist [facility] CT PCR NOT DETECTED Not Detect. [facility] Comment:A not detected test result [...] psychologicalconsequences. NG PCR NOT DETECTED Not Detect. [facility] Comment:A not detected test result [...] MICROBIOLOGY - GENERA L ORDERABLES Final Result [facility] [address] [place] [phone] * (ABNORMAL) Drug Monitoring, Panel 1, Screen, Urine (10/17/2024 10:35 AM EDT) Opiate Screen Urine Not Detected Not Detect [facility] Comment:Opiate cut-off is 30 0 ng/mL.Positive results are unconfirmed and should not be used fornon-medical purposes. Barbiturates, Urine Not Detected Not Detect [facility] Comment:Barbiturate cut-off is 200 ng/mL.Positive results are unconfirmed and should not be used fornon-medical purposes. Phencyclidine Screen Urine Not Detected Not Detect [facility] Comment:Phencyclidine cut-of f is 25 ng/mL.Positive results are unconfirmed and should not be used fornon-medical purposes. Amphetamine Screen Urine Not Detected Not Detect [facility] Comment:Amphetamine cut-off is 1000 ng/mL.Positive results are unconfirmed and should not be used fornon-medical purposes. Benzodiazepines Screen Urine Not Detected Not Detect [facility] Comment:Benzodiazepine cut-o ff is 200 ng/mL.Positive results are unconfirmed and should not be used fornon-medical purposes. Cocaine Screen Urine Not Detected Not Detect [facility] Comment:Cocaine cut-off is 3 00 ng/mL.Positive results are unconfirmed and should not be used fornon-medical purposes. Cannabinoid Screen Urine POSITIVE(A) Not Detect [facility] Comment:Cannabinoid cut-off is 50 ng/mL.Positive results are unconfirmed and should not be used fornon-medical purposes. Methadone Screen, Urine Not Detected Not Detect ng/mL [facility] Comment:Methadone cut-off is 300 ng/mL.Positive results are unconfirmed and should not be used fornon-medical purposes. FENTANYL URINE Not Detected Not Detect [facility] Comment:Fentanyl cut-off is 1 ng/mL.Positive results are unconfirmed and should not be used fornon-medical purposes. Oxycodone Urine Screen Not Detected Not Detect ng/mL [facility] Comment:Oxycodone cut-off is 100 ng/mL.Positive results are unconfirmed and should not be used fornon-medical purposes. Buprenorphine Screen Not Detected Not Detect ng/mL [facility] Comment:Buprenorphine cut-of f is 5 ng/mL.Positive results are unconfirmed and should not be used fornon-medical purposes. 10/17/2024 10:3 5 AM EDT 10/17/2024 10:39 AM EDT us Generic External Data Provider LAB URINE ORDERAB LES Final Result [facility] [address] [place] [address] [phone] * HCG, Qualitative, Urine (10/17/2024 10:35 AM EDT) Urine NEGATIVE NEGATIVE [facility] Comment:This test was develo ped to detect early . Falsenegative results may occur after the 5th - 7th week ofpregnancy when using this test method. If clinicallyindicated, consider a serum hCG. 10/17/2024 10:3 5 AM EDT 10/17/2024 10:39 AM EDT us Generic External Data Provider LAB URINE ORDERAB LES Final Result Performing Organization Address [facility] [address] [facility]/ZIP Co de Phone Number [facility] [address] [place] [address] [phone] * (ABNORMAL) Urinalysis Complete (10/17/2024 10:35 AM EDT) Color Urine Yellow [facility] Appearance Urine Clear [facility] PH 6.0 5.0 - 9.0 [facility] Glucose Urine UA Negative Negative mg/dL [facility] Urine Blood Negative Negative [facility] Specific [place] - Urine >=1.030(H) 1.005 - 1.025 [facility] Urine Protein 30 (1+)(A) Neg-Trace mg/dL [facility] Urine Ketones 15 Negative mg/dL [facility] Nitrite Urine Negative Negative [facility] Leukocyte Esterase Urine Trace(A) Negative [facility] RBC Urine 0-2 0 - 2 /HPF [facility] Urine WBC 0-5 0 - 5 /HPF [facility] Urine Squamous Epithelial Cell 3-5 0 - 2 /HPF [facility] Urine Bacteria Trace None Seen [facility] Hyaline Casts, Urine 3-5 0 - 2 /LPF [facility] 10/17/2024 10:3 5 AM EDT 10/17/2024 10:39 AM EDT us Generic External Data Provider LAB URINE ORDERAB LES Final Result Performing Organization Address [facility] [address]/ZIP Co de Phone Number [facility] [address] [place] [address] [phone] * COVID-19 ID NOW (GONZALEZ) (10/17/2024 10:20 AM EDT) IDNOW SERIAL# [id number] [facility] COVID-19 TEST Negative Negative [facility] COVID-19 NOTE See Note [facility] Comment: Results are for the identification of SARS-CoV2 RNA. TheSARS-CoV2 RNA is generally detectable in respiratory samplesduring the acute phase of infection. Positive results areindicative of the presence of SARS-CoV-2 RNA; clinicalcorrelation with patient history and other diagnosticinformation is necessary to determine patient infectionstatus. Positive results do not rule out bacterial infectionor co- infection with other viruses.Testing facilities within the [facility] and itsterritories are required to report all [...] LAB MOLECULAR ISABEL GNOSTICS ORDERABLES Final Result [facility] [address] [place] [phone] * Ethanol (10/17/2024 10:20 AM EDT) ETHANOL (MG/DL) IN SER/PLAS <10 mg/dL [facility] Comment:Serum/plasma ethanol results are to be used formedical/treatment purposes only. 10/17/2024 10:2 0 AM EDT 10/17/2024 10:26 AM EDT us Generic External Data Provider LAB BLOOD ORDERAB LES Final Result [facility] [address] [place] [phone] [phone] * (ABNORMAL) CBC auto differential (10/17/2024 10:20 AM EDT) White Blood Count 9.1 4.8 - 10.8 X10*3/uL [facility] Red Blood Count 4.99 4.20 - 5.50 X10*6/uL [facility] Hemoglobin 12.0 12.0 - 16.0 g/dl [facility] Hematocrit 36.5(L) 37.0 - 47.0 % [facility] Mean Corpuscular Volume 73.1(L) 80.0 - 98.0 fL [facility] Mean Corpuscular Hemoglobin 24.0(L) 27.0 - 33.0 pg [facility] Mean Corpuscular HGB Conc 32.9 31.0 - 35.0 g/dl [facility] Red Cell Distribution Width 17.7(H) 11.0 - 16.0 % [facility] Platelet Count 224 160 - 400 X10*3/uL [facility] Mean Platelet Volume 10.5 9.4 - 12.3 fL [facility] Neutrophils Percent Auto 83.0(H) 45 - 73 % [facility] Imm Gran Pct Auto 0.3 0.0 - 0.4 % [facility] Lymphocytes Percent Auto 12.0(L) 20 - 40 % [facility] Monocytes Percent Auto 4.3 2 - 11 % [facility] Eosinophils Percent Auto 0.1 0 - 4 % [facility] Basophils Percent Auto 0.3 0 - 2 % [facility] NRBC Pct Auto 0.0 0.0 - 0.2 /100WBC [facility] Neutrophils Absolute Auto 7.5 2.0 - 8.3 x10*3/uL [facility] Imm Gran Abs Auto 0.03 0.00 - 0.03 X10*3/uL [facility] Lymphocytes Absolute Auto 1.1(L) 1.2 - 4.9 X10*3/uL [facility] Monocytes Absolute Auto 0.4 0.1 - 1.2 X10*3/uL [facility] Eosinophils Absolute Auto 0.0 0.0 - 0.4 X10*3/uL [facility] Basophils Absolute Auto 0.0 0.0 - 0.2 X10*3/uL [facility] NRBC Abs Auto 0.000 0.0 - 0.012 X10*3/uL [facility] 10/17/2024 10:2 0 AM EDT 10/17/2024 10:26 AM EDT Generic External Data Provider LAB BLOOD ORDERAB LES Final Result Performing Organization Address City/[facility] [address] [facility]/ZIP Co de Phone Number [facility] [address] [place] [phone] * Acetaminophen level (10/17/2024 10:20 AM EDT) Acetaminophen LAB <3 <30 mcg/mL [facility] 10/17/2024 10:2 0 AM EDT 10/17/2024 10:26 AM EDT Generic External Data Provider LAB BLOOD ORDERAB LES Final Result Performing Organization Address [facility]/ZIP Co de Phone Number [facility] [address] [place] [address] [phone] * (ABNORMAL) Salicylate (10/17/2024 10:20 AM EDT) Salicylate <5.0(L) 15 - 30 mg/dL [facility] 10/17/2024 10:2 0 AM EDT 10/17/2024 10:26 AM EDT us Generic External Data Provider LAB BLOOD ORDERAB LES Final Result [facility] [address] [place] [phone] [phone] * (ABNORMAL) Comprehensive Metabolic Panel (10/17/2024 10:20 AM EDT) Sodium 141 135 - 145 mmol/L [facility] Potassium 3.7 3.3 - 5.1 mmol/L [facility] Chloride 109(H) 96 - 108 mmol/L [facility] Carbon Dioxide 23 22 - 29 mmol/L [facility] Anion Gap 13 12 - 20 [facility] Urea Nitrogen (BUN) 18(H) 9 - 16 mg/dL [facility] Creatinine, Serum 0.73 0.5 - 1.4 mg/dL [facility] Creatinine Clr Calc Pharmacy 87.6 [facility] Comment:Provided height and weight: 154.94 cm,44.8 kg.eGFR (calculated from the MDRD study equation) and eCrCl(calculated from the Cockcroft-Gault equation) are based ondifferent parameters and may not yield comparable results.If eCrCl result is absurd, please check patient'sheight/weight. Estimated Glomerular Filt Rate >60 [facility] Comment:Chronic Kidney Disea se: Estimated GFR < 60 mL/min/1.00g8Qexyck Kidney Disease: Estimated GFR < 15 mL/min/1.73m2 Glucose 92 60 - 115 mg/dL [facility] Calcium 9.2 8.4 - 10.2 mg/dL [facility] Bilirubin, Total 0.8 0.0 - 1.0 mg/dL [facility] Aspartate Amino Transferase 22 5 - 31 U/L [facility] Alanine Aminotransferase 25 0 - 31 U/L [facility] Total Protein 7.5 6.5 - 8.0 g/dL [facility] Albumin Level 4.9 3.5 - 5.0 g/dL [facility] Alkaline Phosphatase 85 39 - 117 U/L [facility] 10/17/2024 10:2 0 AM EDT 10/17/2024 10:26 AM EDT us Generic External Data Provider LAB BLOOD ORDERAB LES Final Result Performing Organization Address City/State/[facility] Co de Phone Number [facility] [address] [place] [address] [phone] from Last 3 Months Insurance [email or web address] [email or web address] Care Teams Cotton Bag Sewer Relationship Specialty Start Date End Date Peggy Martin DO [address] [place] [phone] PCP - General Pediatrics 03/28/18 Syl Muniz Supervisor [employer]rication [employer] 02/13/24
[2025-01-13 17:03] LABS: Hematocrit 34.5 % (37.0-47.0); Hemoglobin 11.6 g/dl (12.0-16.0); Imm Gran Abs Auto 0.02 X10*3/uL (0.00-0.03); Imm Gran Pct Auto 0.2 % (0.0-0.4); Lymphocytes Absolute Auto 0.6 X10*3/uL (1.2-4.9); MANUAL DIFF FLAG NO; Mean Corpuscular HGB Conc 33.6 g/dl (31.0-35.0); Mean Corpuscular Hemoglobin 24.8 pg (27.0-33.0); Mean Corpuscular Volume 73.7 fL (80.0-98.0); NRBC Abs Auto 0.000 X10*3/uL (0.0-0.012); NRBC Pct Auto 0.0 /100WBC (0.0-0.2); Platelet Count 231 X10*3/uL (160-400); Red Blood Count 4.68 X10*6/uL (4.20-5.50); White Blood Count 8.2 X10*3/uL (4.8-10.8)
--- OUTSIDE RECORDS SUMMARY | 2025-01-13 17:03 | XMS_ITS | Encounter Summary ---
Author Organization [employer] Address [address] [facility] [address] [place] [address] Care Team Providers Care Elementary Secretary Name Role Phone Peggy Martin DO Primary Care Provider [phone] Reason for Visit * Reason Comments Med Refill Encounter Details Date Type Department Care Team (Late st Contact Info) Description 12/27/2022 Refill [facility] [address] [place] [address] Peggy Martin DO [address] [employer], [place] [phone] Attention deficit hyperactivity disorder (ADHD), predominantly inattentive [...] Description 02/06/2025 2:00 PM EST Office Visit [facility] [address] [place], [place] [phone] Amanda Hagan MD [address] [place] [address] documented as of this encounter Visit Diagnoses Diagnosis Attention deficit hyperactivity disorder (ADHD), predominantly inattentive type documented in this encounter Additional Health Concerns Assessment Noted Time PHQ-9 Depression Total Score: 0 07/31/19 23 5:07 PM EDT documented as of this encounter Care Teams Elementary Secretary Relationship Specialty Start Date End Date Peggy Martin DO [address] [place] [address] PCP - General Pediatrics 03/28/18 Syl Muniz Bioprocess Engineer 02/13/24 documented as of this encounter
--- OUTSIDE RECORDS SUMMARY | 2025-01-13 17:03 | XMS_ITS | Encounter Summary ---
Author Organization [employer] Address [address] [facility] [address] [place] [address] Care Team Providers Care University Manager Name Role Phone Peggy Martin DO Primary Care Provider [phone] Encounter Details Date Type Department Care Team ([facility] st Contact Info) Description 01/26/2024 Orders Only [facility] MED[facility]INE [address] [place], [place] [phone] Andressa Capps CNM [address] [place], [place] [phone] Social History Tobacco Use Types Packs/Day Years [...] Description 02/06/2025 2:00 PM EST Office Visit [facility] MED[facility] [address] [place] [address] Amanda Hagan MD [address] [place] [address] documented as of this encounter Visit Diagnoses Not on filedocumented in this encounter Additional Health Concerns Assessment Noted Time PHQ-9 Depression Total Score: 0 07/31/19 23 5:07 PM EDT documented as of this encounter Care Teams University Manager Relationship Specialty Start Date End Date Peggy Martin DO [address] [place] [address] PCP - General Pediatrics 03/28/18 Syl Muniz Airplane Mechanic 02/13/24 documented as of this encounter
[2025-01-13 17:19] LABS: Alanine Aminotransferase 48 U/L (0-31); Albumin Level 5.0 g/dL (3.5-5.0); Alkaline Phosphatase 73 U/L (39-117); Anion Gap 15 (12-20); Aspartate Amino Transferase 36 U/L (5-31); Blood Urea Nitrogen 10 mg/dL (9-16); Calcium 9.2 mg/dL (8.4-10.2); Carbon Dioxide 18 mmol/L (22-29); Chloride 111 mmol/L (96-108); Creatinine Clr Calc Pharmacy 91.2; Estimated Glomerular Filt Rate > 60; Lipase 31 U/L (8-78); Potassium 3.5 mmol/L (3.3-5.1); Sodium 140 mmol/L (135-145); Total Protein 7.3 g/dL (6.5-8.0)
[2025-01-13 20:22] VITALS: BP 132/85; PULSE 88; RESP 16; TEMP 37.4; O2SAT 97
[2025-01-13 22:49] LABS: COVID-19 Test Negative (Negative); IDNOW Serial# 55D5AD1C; IDNOW Serial# 6674DD1D; Influenza B2 Negative (Negative)
--- NOTE | 2025-01-14 00:34 | PC.NURSE ---
PO trial at this time
--- NOTE | 2025-01-14 00:55 | PC.NURSE ---
pt tolerated well
[2025-01-14 01:01] VITALS: BP 105/61; PULSE 68; RESP 16; TEMP 36.6; O2SAT 97
== END 2025-01-14 01:03 | disposition home or self-care (01) ==
PROVIDERS: Registered Nurse Emergency; Emergency Provider Emergency Medicine; PCP Pediatrics
DX: R11.16 Cannabis hyperemesis syndrome (principal); R10.9 Unspecified abdominal pain; Z03.818 Encounter for observation for suspected exposure to other biological agents ruled out; J45.909 Unspecified asthma, uncomplicated; E28.2 Polycystic ovarian syndrome; F32.A Depression, unspecified
CPT/HCPCS: 36415; 80053; 83690; 85025; 87502; 87635; 96374; 96375; 99284; J1200; J1630

== ENCOUNTER 2025-01-14 07:58 | Emergency (ER) | payer MEDICAID, SELFPAY ==
--- NOTE | ~2025-01-14 | US_ITS ---
EXAMINATION: US ABDOMEN LIMITED HISTORY: RUQ pain - GB and CBD only TECHNIQUE: Real-time grayscale ultrasound imaging of the gallbladder was performed and images were reviewed. COMPARISON: Comparison is made with the prior examination dated 04/27/2023. FINDINGS: The gallbladder is unremarkable, without evidence of calculi, wall thickening, or pericholecystic fluid. There is no sonographic Rosado sign. The common bile duct is normal in caliber measuring 2 mm. US/US abdomen limited IMPRESSION: Unremarkable ultrasound of the gallbladder. Electronically signed by: Iván Angel MD 01/14/2025 09:28 AM EDT
[2025-01-14 08:02] VITALS: BP 122/72; PULSE 75; O2SAT 95
[2025-01-14 08:03] VITALS: BP 124/85; PULSE 60; RESP 18; TEMP 36.9; O2SAT 100; BMI 18.9
--- NOTE | 2025-01-14 08:03 | ED_ITS ---
HPI - Nausea/Vomiting/Diarrhea General Chief complaint: Abdominal Pain Stated complaint: ABD PAIN,VOMITIG,H/O CYCLIC VOMITING PER EMS Source: patient, EMS and old records reviewed Mode of arrival: EMS Limitations: no limitations History of Present Illness ED Provider: WILMER REY Narrative: 19 yo female with pMH of depression, post , cannabinoid hyperemesis syndrome who has been seen here x 2 on 01/10 for n/v returns today with c/o persistent nausea unable to eat and upper abdominal pain. She did have an episode of explosive diarrhea. She has no fevers, no urinary symptoms, no vaginal discharge. She was started on zofran, compazine suppository, and capsaicin cream - she has only the antacids and zofran at this time. She denies any GIB symptoms. She has been sick for 3 to 4 days. Has not smoked since. Has a heating pad on her abdomen MD elicited complaint: nausea, vomiting, diarrhea and abdominal pain Pertinent past history: other Onset (ago): day(s) (3) Description of vomiting: watery Description of diarrhea: watery Associated nausea: Yes Associated abdominal pain: Yes Location of pain: epigastric Radiation: diffuse Pain consistency: constant Severity: severe Quality: stabbing and aching Exacerbating factors: eating and movement Relieving factors: none Context: marijuana use Associated symptoms: loss of appetite, malaise, nausea/vomiting and weakness Treatment prior to arrival: other Related Data Previous Rx's ?Medication ?Instructions ?Recorded clonidine HCl 0.1 mg tablet 0.1 mg PO BEDTIME 30 days #30 tabs 10/22/24 nicotine (polacrilex) 4 mg gum 4 mg buccal Q2H PRN laverne otine 10/22/24 cravings 30 days #100 ea nicotine 21 mg/24 hr daily 21 mg transdermal DAILY PRN 10/22/24 transdermal patch smoking cessation 28 days #2 8 ea aripiprazole 2 mg tablet 2 mg PO BEDTIME as directed #14 11/05/24 tabs mirtazapine 15 mg tablet 15 mg PO BEDTIME 30 days #15 tabs 11/05/24 famotidine 20 mg tablet 20 mg PO BEDTIME #30 tabs ondansetron 4 mg disintegrating 4 mg PO Q8H PRN nausea and 01/13/25 tablet vomiting #4 tabs sucralfate 1 gram tablet (Carafate) 1 g PO Q6H 7 days #28 tabs 01/13/25 capsaicin 0.025 % topical cream 1 appl topical QID abd ominal pain 01/14/25 #120 grams lorazepam 1 mg tablet (Ativan) 1 mg PO BEDTIME PRN sle ep #5 tabs 01/14/25 prochlorperazine 25 mg rectal 25 mg AL BID PRN nausea and 01/14/25 suppository (Compazine) vomiting #12 ea Allergies Allergy/AdvReac Type Severity Reaction Status Date / Time No Known Allergies Allergy Verified 01/14/25 08:06 Review of Systems 2 Review of Systems: Constitutional : No Weight loss, No Fever, No Chills ENT/Mouth : No sore throat, No Rhinorrhea Eyes: No Swelling, No Redness Cardiovascular : No Chest Pain, No SOB, NoEdema Respiratory : No Cough, No Sputum, No Wheezing Gastrointestinal : Positive Nausea, Positive Vomiting, positive Diarrhea, positive abdominal Pain, No Hematochezia, No Melena Genitourinary : No Dysuria, No Urinary Frequency, No Hematuria, No Urgency Musculoskeletal : No joint pain, No Myalgias, No Joint Swelling Skin : No Skin Lesions, No rash Neuro : No Weakness, No Numbness, No Dizziness, No Headache All other systems reviewed and are negative. Gastrointestinal: Gastrointestinal: Reports nausea PMFSH Past Medical History Medical History Depression MDD (major depressive disorder) PCOS (polycystic ovarian syndrome) ADHD Asthma Social History Social History Household Members: Significant Other, Family and Children Household Members Other:: Adoptive mother, partner, and their child Housing: House Do you presently have visiting nurse or other home services: No Patient Tobacco Use Status: Current everyday Tobacco user Tobacco use type: Smokeless Tobacco Years Smoked: 5 e-Cigarette/Vaping Use: Currently Using Second Hand Smoke Exposure: No Substance Use Type: Marijuana Advance Directives: No Advance Directives Information Provided: Yes Do you have a plan to hurt others: No Plan service: No Sexual orientation: Straight/Heterosexual Physical Exam 2 Vital Signs: Vital Signs: Last Vital Signs Temp 98.5 F 01/14/25 08:03 Pulse 53 01/14/25 09:04 Resp 16 01/14/25 10:19 BP 118/79 01/14/25 09:04 Pulse Ox 98 01/14/25 09:04 O2 Del Method Room Air 01/14/25 09:04 BMI result Body Mass Index 18.9 Appearance: Alert. Oriented X3. in pain mild acute distress. Eyes: Pupils equal, round and reactive to light. ENT: Pharynx dry MM Neck: Normal inspection. Neck supple. CVS: Normal heart rate and rhythm. Pulses normal. Respiratory: No respiratory distress. Breath sounds normal. Abdomen: Soft and nontender. Skin: Skin warm and dry. pale skin color. Normal skin turgor. Extremities: No lower extremity edema. Neuro: Oriented X 3. No motor deficit. No sensory deficit. CN2-12 intact Medications Administered Discontinued Medications Generic Name Dose Route Start Last Admin Trade Name Freq PRN Reason Stop Dose Admin Diazepam 5 mg 01/14/25 08:09 01/14/25 08:41 Diazepam 10 Mg/2 Ml Cartridge IVPUSH 01/14/25 08:10 5 mg STAT STA Administration Famotidine 20 mg 01/14/25 08:09 01/14/25 08:41 Famotidine/Pf 20 Mg/2 Ml Vial IVPUSH 01/14/25 08:10 20 mg ONCE ONE Administration Lactated Ringer's 1,000 mls @ 999 mls/hr 01/14/25 08:09 01/14/25 10:21 Lr IV 01/14/25 09:09 Infused .Q1H1M ONE Infusion Ketorolac Tromethamine 15 mg 01/14/25 08:09 01/14/25 08:40 Ketorolac Tromethamine 15 Mg/Ml Vial IVPUSH 01/14/25 08:10 15 mg ONCE ONE Administration Morphine Sulfate 4 mg 01/14/25 10:06 01/14/25 10:19 Morphine Sulfate 4 Mg/Ml Cartridge IVPUSH 01/14/25 10:07 4 mg ONCE ONE Administration Protocol Medical Decision Making Medical Decision Making MDM Narrative: 19 yo female with pMH of depression, post , cannabinoid hyperemesis syndrome who presents with persistent abdominal pain, n/v, one episode of diarrhea at this time will need basic labs, EKG for qtc, IVF, pain control, US of gallbladder given increasing LFTs. Suspect gastritis, THC use, biliary colic, pancreatitis. I have ordered IVF, valium, capsaicin, toradol, pepcid. Differential Diagnosis Differential Diagnoses: The differential diagnosis associated with the presentation includes gastritis, cannibinoid hyperemesis syndrome, dehydration, biliary colic, pancreatitis Admission/Observation Consideration of admission/observation: Escalation of care including admission/observation considered tolerating PO feels much better Lab Data MDM Lab Attestation statement: I reviewed the patient's lab results. 01/14/25 08:24 01/14/25 08:24 Labs: Lab Results 01/14/25 Range/Units 08:24 WBC 7.0 (4.8-10.8) X10*3/uL RBC 4.57 (4.20-5.50) X10*6/uL Hgb 11.5 L (12.0-16.0) g/dl Hct 34.2 L (37.0-47.0) % MCV 74.8 L (80.0-98.0) fL MCH 25.2 L (27.0-33.0) pg MCHC 33.6 (31.0-35.0) g/dl RDW 15.3 (11.0-16.0) % Plt Count 203 (160-400) X10*3/uL MPV 11.3 (9.4-12.3) fL Immature Gran % (Auto) 0.3 (0.0-0.4) % Neut % (Auto) 73.5 H (45-73) % Lymph % (Auto) 18.5 L (20-40) % [place] % (Auto) 6.8 (2-11) % Eos % (Auto) 0.3 (0-4) % Baso % (Auto) 0.6 (0-2) % Lymph # (Auto) 1.3 (1.2-4.9) X10*3/uL [place] # (Auto) 0.5 (0.1-1.2) X10*3/uL Eos # (Auto) 0.0 (0.0-0.4) X10*3/uL Baso # (Auto) 0.0 (0.0-0.2) X10*3/uL Abs Immat Gran (auto) 0.02 (0.00-0.03) X10*3/uL Absolute Neuts (auto) 5.2 (2.0-8.3) x10*3/uL Absolute Nucleated RBC 0.000 (0.0-0.012) X10*3/uL Nucleated RBC % (auto) 0.0 (0.0-0.2) /100WBC Sodium 140 (135-145) mmol/L Potassium 3.6 (3.3-5.1) mmol/L Chloride 109 H (96-108) mmol/L Carbon Dioxide 19 L (22-29) mmol/L Anion Gap 16 (12-20) BUN 12 (9-16) mg/dL Creatinine 0.74 (0.5-1.4) mg/dL Estim Creat Clear Calc 87.6 Estimated GFR > 60 Random Glucose 88 (60-115) mg/dL Calcium 8.9 (8.4-10.2) mg/dL Magnesium 2.1 (1.6-2.6) mg/dL Total Bilirubin 1.6 H (0.0-1.0) mg/dL Direct Bilirubin 0.4 (0.0-0.5) mg/dL AST 27 (5-31) U/L ALT 38 H (0-31) U/L Alkaline Phosphatase 70 (39-117) U/L Total Protein 6.8 (6.5-8.0) g/dL Albumin 4.6 (3.5-5.0) g/dL Lipase 45 (8-78) U/L Beta HCG, Quant < 2 mIU/mL Independent Interpretation I performed an independent interpretation of an: EKG and Ultrasound (normal ) Interpretation: Rate: 72 Rhythm: NSR [place]: normal Normal P waves. Normal CARMINE. Normal QRS complex. ST T wave : inverted t wave V1, no NAINA qTC: 442 prior studies: no acute ischemia The study has been interpreted contemporaneously by me. . Radiology Impression Discussion of test interpretation with radiology: I have reviewed the radiologist's reading. External Record Review External record reviewed: Outpatient record, Prior outpatient labs and Prior outpatient radiology Prescription Management I considered prescription management with: Other Discharge Plan Discharge Clinical Impression: Cannabinoid hyperemesis syndrome Patient Disposition: Home, Self-Care Instructions: Acute Nausea and Vomiting (ED) Additional Instructions: ultrasound is normal return for worsening, pain, unable to eat or drink or any other concerns continue to not use THC Prescriptions: New lorazepam [Ativan] 1 mg tablet 1 mg PO BEDTIME PRN (Reason: sleep) Qty: 5 0RF No Action nicotine 21 mg/24 hr Patch 24 Hour 21 mg transdermal DAILY PRN (Reason: smoking cessation) 28 Days Qty: 28 0RF Rx Instructions: remove at bedtime clonidine HCl 0.1 mg Tablet 0.1 mg PO BEDTIME 30 Days Qty: 30 0RF Protocol: Hold for SBP< HOLD for SBP < : 90 nicotine (polacrilex) 4 mg gum 4 mg buccal Q2H PRN (Reason: nicotine cravings) 30 Days Qty: 100 0RF aripiprazole 2 mg tablet 2 mg PO BEDTIME Qty: 14 0RF mirtazapine 15 mg tablet 15 mg PO BEDTIME 30 Days Qty: 15 0RF prochlorperazine [Compazine] 25 mg suppository 25 mg AL BID PRN (Reason: nausea and vomiting) Qty: 12 0RF capsaicin 0.025 % cream 1 appl topical QID Qty: 120 0RF Rx Instructions: do not wash area for at least 30 min after application sucralfate [Carafate] 1 gram tablet 1 g PO Q6H 7 Days Qty: 28 0RF famotidine 20 mg tablet 20 mg PO BEDTIME Qty: 30 0RF ondansetron 4 mg tablet,disintegrating 4 mg PO Q8H PRN (Reason: nausea and vomiting) Qty: 4 0RF Print Language: Macedonian
--- NOTE | 2025-01-14 08:05 | ECG_ITS ---
Test Reason : check qtc Blood Pressure : */* mmHG Vent. Rate : 72 BPM Atrial Rate : 72 BPM P-R Int : 146 ms QRS Dur : 76 ms QT Int : 404 ms P-R-T Axes : 75 57 46 degrees QTcB Int : 442 ms Sinus rhythm with marked sinus arrhythmia Possible Anterior infarct , age undetermined Abnormal ECG When compared with ECG of 04-Nov-2021 23:47, No significant change was found Referred By: Rosalia Ayers Electronically Signed By: ERICKA GAFFNEY MD
[2025-01-14 08:29] LABS: MANUAL DIFF FLAG NO
--- OUTSIDE RECORDS SUMMARY | 2025-01-14 08:29 | XMS_ITS | Encounter Summary ---
Author Organization [employer] Address [address] [facility] [address] [place] [address] Care Team Providers Care Gas Welder Name Role Phone Peggy Matrin DO Primary Care Provider [phone] Encounter Details Date Type Department Care Team (Late st Contact Info) Description 01/13/2025 Orders Only GENERIC EXTERNAL DATA DEPARTMENT Provider, Generic External Data Social History Tobacco Use Types Packs/Day Years Used Date Smoking Tobacco: Never Passive Smoke Exposure: Never Smokeless Tobacco: Never Alcohol Use Standard Drinks/Week Comments Yes 0 [...] the past 12 months, has t he [employer], gas, oil or water Fe[employer] threatened to shut off services in your home? No 01/25/2024 Depression Answer Date Recorded Patient Health Questionnaire-2 Score 4 09/24/2024 Internet Access Answer Date Recorded Internet Access Q1 Yes 01/25/2024 Internet Access Q2 Not on file 01/25/2024 Comments No Sex and Gender Information Value [...] Description 02/06/2025 2:00 PM EST Office Visit [facility] [address] [place], [place] [phone] Amanda Hagan MD [address] [place] [address] documented as of this encounter Procedures Procedure Name Priority Date/Time Associated Diagnosis Comments INFLUENZA A B2 ID NOW (GONZALEZ) Routine 01/13/2025 10:26 PM EDT COVID-19 ID NOW (GONZALEZ) Routine 01/13/2025 10:26 PM EDT documented in this encounter Results * COVID-19 ID NOW (GONZALEZ) (01/13/2025 10:26 PM EDT) IDNOW SERIAL# [id number] [facility] COVID-19 TEST Negative Negative [facility] COVID-19 NOTE See Note [facility] Comment: Results are for the identification of SARS-CoV2 RNA. TheSARS-CoV2 RNA is generally detectable in respiratory samplesduring the acute phase of infection. Positive results areindicative of the presence of SARS-CoV-2 RNA; clinicalcorrelation with patient history and other diagnosticinformation is necessary to determine patient infectionstatus. Positive results do not rule out bacterial infectionor co- infection with other viruses.Testing facilities within the [facility] and itsterritories are required to report all [...] on the Gonzalez ID NOW utilizing NAAT. 01/13/2025 10:2 6 PM EDT 01/13/2025 10:29 PM EDT [email or web address] External Data Provider LAB MOLECULAR ISABEL GNOSTICS ORDERABLES Final Result Performing Organization Address City/[facility]/ZIP Co de Phone Number [facility] [address] [place] [phone] * Influenza A B2 ID NOW (Gonzalez) (01/13/2025 10:26 PM EDT) IDNOW SERIAL# [id number] [facility] Influenza A Negative Negative [facility] Influenza B2 Negative Negative [facility] Influenza A B2 Note See Note [facility] Comment:The Gonzalez ID NOW In fluenza A B2 test is used for thequalitative detection of influenza A and B from patientswith signs and symptoms of respiratory infection.Negative results do not preclude influenza virus infectionand should not be used as the sole basis for diagnosis,treatment or other patient management decisions.There is a risk of false negative results due to thepresence of variants in the viral targets of the assay, lowlevels of virus in the specimen and co- infection withRespiratory Syncytial Virus. 01/13/2025 10:2 6 PM EDT 01/13/2025 10:29 PM EDT [email or web address] External Data Provider LAB MICROBIOLOGY - GENERAL ORDERABLES Final Result [facility] [address] [place] [address] [phone] documented in this encounter Visit Diagnoses Not on filedocumented in this encounter Additional Health Concerns Assessment Noted Time PHQ-9 Depression Total Score: 12 09/24/ 025 4:48 PM EDT documented as of this encounter Care Teams Gas Welder Relationship Specialty Start Date End Date Peggy Martin DO [address] [place] [phone] PCP - General Pediatrics 03/28/18 Syl Muniz Ware Dresser 02/13/24 documented as of this encounter
--- OUTSIDE RECORDS SUMMARY | 2025-01-14 08:29 | XMS_ITS | Clinical Summary ---
Author Organization [facility] Address [address] [address] Phone Care Team Providers Care College Counselor Name Role Phone Peggy Martin DO Primary Care Provider [phone] Allergies No known active allergies Medications famotidine [...] would be interested in membrane sweep at [place] if no spontaneous labor. We discussed post [...] Assessment & Plan (12/09/2023 3:00 PM EDT): lEoisa is doing OK. Continues to have some [...] (02/10/2024 8:13 PM EST): Pt presents to [facility] c/o continuous vomiting for the [...] not tolerate. Pt has been seen at [facility] for this complaint before. Encounters Date Type Department Care Team Description 11/01/2024 4:00 PM EDT Office Visit [facility] [address] [address] Rigo Boogie, ANDRY Encounter for removal of [...] with no immediate complications Rigo Boogie CNP GA MISCELLANEOUS SERVI MIRNA Final Result * Hepatitis C antibody, qualitative (11/07/2023 3:20 PM EDT) HCV NON-REACTIV E NON-REACTI VE [facility] Blood 11/07/2023 3:20 PM EDT 11/07/2023 3:30 PM EDT Cristy Garcia CNM LAB BLOOD ORDERABLES F inal Result [address] [id number] * Chlamydia Trachomatis and Neisseria Gonorrhoeae Nucleic Acid Detection (10/05/2023 11:18 AM EDT) CHLAMYDIA TRACHOMATIS Not Detected Not Detected [facility] NEISERIA GONORRHOEAE Not Detected Not Detected [facility] SPECIMEN TYPE URINE [facility] Urine (Urine) 10/05/2023 11: 18 AM EDT 10/05/2023 3:25 PM EDT Cristy Garcia CNM NON CULTURE MICROBIOLO GY Final Result Performing Organization Address City/[facility]/ZIP Co de Phone Number [address] [phone] from Last 3 Months or Most Recently Relevant to Health Maintenance Insurance C3 ACO C3 ACO [facility] C3 ACO [facility] C3 ACO [facility] C3 [place] [address] [place] [address] [facility] C3 ACO Advance Directives For more information, please contact: [phone] (9AM - 5PM [place], Tuesday-Tuesday) * Full [...] Code Status Confirmed With: Patient Care Teams College Counselor Relationship Specialty Start Date End Date Peggy Martin DO [address] [place] [id number] PCP - General Pediatrics 05/16/23 Additional Source Comments The information contained in this document represents components of the legal health record. It is not the complete legal health record.[facility]
--- OUTSIDE RECORDS SUMMARY | 2025-01-14 08:29 | XMS_ITS | Encounter Summary ---
Author Organization [employer] Address [address] [facility] [address] [place] [address] Care Team Providers Care Finishing Area Operator Name Role Phone Peggy Martin DO Primary Care Provider [phone] Reason for Visit * Reason Comments Med Refill Encounter Details Date Type Department Care Team (Late st Contact Info) Description 05/15/2022 Refill [facility] [address] [place] [address] Peggy Martin DO [address] [place], [place] [phone] ADHD (attention deficit hyperactivity disorder), combined type [...] Description 02/06/2025 2:00 PM EST Office Visit [facility] [address] [place] [phone] Amanda Hagan MD [address] [place], [place] [phone] documented as of this encounter Visit Diagnoses Diagnosis ADHD (attention deficit hyperactivity disorder), combined type Attention deficit disorder with hyperactivity documented in this encounter Care Teams Finishing Area Operator Relationship Specialty Start Date End Date Peggy Martin DO [address] [place] [phone] PCP - General Pediatrics 03/28/18 Syl Muniz Facilities Maintenance Supervisor 02/13/24 documented as of this encounter
--- OUTSIDE RECORDS SUMMARY | 2025-01-14 08:30 | XMS_ITS | Clinical Summary ---
Author Organization [facility] [facility] [employer] Address [address] [facility] 7t [place] [address] Care Team Providers Care Railroad Watchman Name Role Phone Peggy Martin DO Primary Care Provider [phone] Allergies No known active allergies Medications * [...] bedtime. 03/02/20 24 Active Fluocinolone Acetonide Scalp (Donovan-Smoothe/FS Scalp) 0.01 % oilIndications:Shashi orrheic dermatitis Apply before bed to a damp scalp. Wrap with head covering. Wash off in AM as directed. Use 3x /week for treatment and 1-2x/week for maintenance. 120 mL 3 03/07/20 24 Active ketoconazole (NIZOral) 2 % shampooIndications :Seborrheic dermatitis Use in AM after applying Donovan-smoothe oil the night before 120 mL 2 [...] organization. Date Type Department Care Team Description 01/13/2025 Orders Only GENERIC EXTERNAL DATA DEPARTMENT Provider, Generic External Data 01/01/2025 Telephone [facility] [address] [place] [address] Peggy Martin, DO Care Management (C3CM follow up call) 11/29/2024 Telephone [facility] [address] [place] [address] Peggy Martin, DO Care Management (C3CM follow up call) 11/29/2024 Travel 11/16/[address] [address] Peggy Martin DO No Show (PT no show to 19 yr pe. Transfer patient to adult team. Message forward to Antonia. Per Mario Transfer to erik If possible. ) 11/15/2024 Telephone [facility] [address] [place] [address] Peggy Martin DO CHART PREP 11/09/2024 Patient Outreach [address] [address] Peggy Martin DO Pre-visit Planning (SDOH screening is negative and Tobacco screening is positive) 11/06/2024 10:00 AM EDT Procedure Visit [address] [address] Andressa Capps CNM Checking of intrauterine device (Primary Dx); Screening examination for venereal disease 11/06/2024 Travel 11/05/2024 Telephone [facility] [address] [place] [address] [phone] Nakita Fierro [place] 11/05/[address] [address] Peggy Martin DO Care Management (C3 TC #2-lvm) 10/25/[address] [address] Peggy Martin DO Medication Question 10/24/2024 Patient Outreach [address] [address] Peggy Martin DO Transition Of Care (Tcm) (HDF- Unscheduled ) 10/17/2024 Orders Only GENERIC EXTERNAL DATA DEPARTMENT Provider, Generic External Data 10/16/[address] [address] Peggy Martin DO Care Management ([facility] TC #1-unable to lvm) from [...] Description 02/06/2025 2:00 PM EST Office Visit [facility] [address] [place] [address] Amanda Hagan MD [address] [place] [address] Health Maintenance Due Date Last Done Comments [...] Procedure Name Priority Date/Time Associated Diagnosis Comments COVID-19 ID NOW (GONZALEZ) Routine 01/13/2025 10:26 PM EDT INFLUENZA A B2 ID NOW (GONZALEZ) Routine 01/13/2025 10:26 PM EDT CHLAMYDIA/N. GONORRHOEAE RNA, TMA, UROGENITAL Routine 11/06/2024 [...] EDT from Last 3 Months Results * Influenza A B2 ID NOW (Gonzalez) (01/13/2025 10:26 PM EDT) IDNOW SERIAL# [id number] [facility] Influenza A Negative Negative [facility] Influenza B2 Negative Negative [facility] Influenza A B2 Note See Note [facility] Comment:The Gonzalez ID NOW In fluenza [...] 6 PM EDT 01/13/2025 10:29 PM EDT us Generic External Data Provider LAB MICROBIOLOGY - GENERAL ORDERABLES Final Result [facility] [address] [place] [phone] * COVID-19 ID NOW (GONZALEZ) (01/13/2025 10:26 PM EDT) Only the most recent of2 resultswithin the time period is included. IDNOW SERIAL# [id number] [facility] COVID-19 TEST Negative Negative [facility] COVID-19 NOTE See Note [facility] Comment: Results are for the identification of SARS-CoV2 RNA. TheSARS-CoV2 RNA is generally detectable in respiratory samplesduring the acute phase of infection. Positive results areindicative of the presence of SARS-CoV-2 RNA; clinicalcorrelation with patient history and other diagnosticinformation is necessary to determine patient infectionstatus. Positive results do not rule out bacterial infectionor co- infection with other viruses.Testing facilities within the [facility] and itsterritories are required to report all [...] use by authorized laboratories.Testing performed on the jaeyos ID NOW utilizing NAAT. 01/13/2025 10:2 6 PM EDT 01/13/2025 10:29 PM EDT us Generic External Data Provider LAB MOLECULAR ISABEL GNOSTICS ORDERABLES Final Result [facility] [address] [place] [phone] [phone] * Chlamydia/N. Gonorrhoeae RNA, TMA, Vagina (11/06/2024 11:10 AM EDT) CT PCR NOT DETECTED Not Detect. [facility] Comment:A not detected test [...] psychologicalconsequences. NG PCR NOT DETECTED Not Detect. [facility] Comment:A not detected test [...] 11:10 AM EDT 11/06/2024 4:23 PM EDT Andressa Capps [facility] MICROBIOLOGY - GENERA L ORDERABLES Final Result [facility] [address] [place] [address] [phone] * (ABNORMAL) Drug Monitoring, Panel 1, Screen, Urine (10/17/2024 10:35 AM EDT) Opiate Screen Urine Not Detected Not Detect [facility] Comment:Opiate cut-off is 30 0 ng/mL.Positive results are unconfirmed and should not be used fornon-medical purposes. Barbiturates, Urine Not Detected Not Detect [facility] Comment:Barbiturate cut-off is 200 ng/mL.Positive results are unconfirmed and should not be used fornon-medical purposes. Phencyclidine Screen Urine Not Detected Not Detect [facility] Comment:Phencyclidine cut-of f is 25 ng/mL.Positive results are unconfirmed and should not be used fornon-medical purposes. Amphetamine Screen Urine Not Detected Not Detect [facility] Comment:Amphetamine cut-off is 1000 ng/mL.Positive results are unconfirmed and should not be used fornon-medical purposes. Benzodiazepines Screen Urine Not Detected Not Detect [facility] Comment:Benzodiazepine cut-o ff is 200 ng/mL.Positive results are unconfirmed and should not be used fornon-medical purposes. Cocaine Screen Urine Not Detected Not Detect [facility] Comment:Cocaine cut-off is 3 00 ng/mL.Positive results are unconfirmed and should not be used fornon-medical purposes. Cannabinoid Screen Urine POSITIVE(A) Not Detect [facility] Comment:Cannabinoid cut-off is 50 ng/mL.Positive results are unconfirmed and should not be used fornon-medical purposes. Methadone Screen, Urine Not Detected Not Detect ng/mL [facility] Comment:Methadone cut-off is 300 ng/mL.Positive results are unconfirmed and should not be used fornon-medical purposes. FENTANYL URINE Not Detected Not Detect [facility] Comment:Fentanyl cut-off is 1 ng/mL.Positive results are unconfirmed and should not be used fornon-medical purposes. Oxycodone Urine Screen Not Detected Not Detect ng/mL [facility] Comment:Oxycodone cut-off is 100 ng/mL.Positive results are unconfirmed and should not be used fornon-medical purposes. Buprenorphine Screen Not Detected Not Detect ng/mL [facility] Comment:Buprenorphine cut-of f is 5 ng/mL.Positive results are unconfirmed and should not be used fornon-medical purposes. 10/17/2024 10:3 5 AM EDT 10/17/2024 10:39 AM EDT Generic External Data Provider LAB URINE ORDERAB LES Final Result Performing Organization Address [facility] Co de Phone Number [facility] [address] [place] [phone] * HCG, Qualitative, Urine (10/17/2024 10:35 AM EDT) Pathologist [facility] Urine NEGATIVE NEGATIVE [facility] Comment:This test was develo ped to detect early . Falsenegative results may occur after the 5th - 7th week ofpregnancy when using this test method. If clinicallyindicated, consider a serum hCG. 10/17/2024 10:3 5 AM EDT 10/17/2024 10:39 AM EDT Generic External Data Provider LAB URINE ORDERAB LES Final Result Performing Organization Address [facility] Co de Phone Number [facility] [address] [place] [address] [phone] * (ABNORMAL) Urinalysis Complete (10/17/2024 10:35 AM EDT) Pathologist [facility] Color Urine Yellow [facility] Appearance Urine Clear [facility] PH 6.0 5.0 - 9.0 [facility] Glucose Urine UA Negative Negative mg/dL [facility] Urine Blood Negative Negative [facility] Specific [place] - Urine >=1.030(H) 1.005 - 1.025 [facility] Urine Protein 30 (1+)(A) Neg-Trace mg/dL [facility] Urine Ketones 15 Negative mg/dL [facility] Nitrite Urine Negative Negative [facility] Leukocyte Esterase Urine Trace(A) Negative [facility] RBC Urine 0-2 0 - 2 /HPF [facility] Urine WBC 0-5 0 - 5 /HPF [facility] Urine Squamous Epithelial Cell 3-5 0 - 2 /HPF [facility] Urine Bacteria Trace None Seen [facility] Hyaline Casts, Urine 3-5 0 - 2 /LPF [facility] 10/17/2024 10:3 5 AM EDT 10/17/2024 10:39 AM EDT Generic External Data Provider LAB URINE ORDERAB LES Final Result Performing Organization Address [facility] Co de Phone Number [facility] [address] [place] [phone] * Ethanol (10/17/2024 10:20 AM EDT) ETHANOL (MG/DL) IN SER/PLAS <10 mg/dL [facility] Comment:Serum/plasma ethanol results are to be used formedical/treatment purposes only. 10/17/2024 10:2 0 AM EDT 10/17/2024 10:26 AM EDT Generic External Data Provider LAB BLOOD ORDERAB LES Final Result Performing Organization Address [facility] Co de Phone Number [facility] [address] [place] [phone] * (ABNORMAL) CBC auto differential (10/17/2024 10:20 AM EDT) White Blood Count 9.1 4.8 - 10.8 X10*3/uL [facility] Red Blood Count 4.99 4.20 - 5.50 X10*6/uL [facility] Hemoglobin 12.0 12.0 - 16.0 g/dl [facility] Hematocrit 36.5(L) 37.0 - 47.0 % [facility] Mean Corpuscular Volume 73.1(L) 80.0 - 98.0 fL [facility] Mean Corpuscular Hemoglobin 24.0(L) 27.0 - 33.0 pg [facility] Mean Corpuscular HGB Conc 32.9 31.0 - 35.0 g/dl [facility] Red Cell Distribution Width 17.7(H) 11.0 - 16.0 % [facility] Platelet Count 224 160 - 400 X10*3/uL [facility] Mean Platelet Volume 10.5 9.4 - 12.3 fL [facility] Neutrophils Percent Auto 83.0(H) 45 - 73 % [facility] Imm Gran Pct Auto 0.3 0.0 - 0.4 % [facility] Lymphocytes Percent Auto 12.0(L) 20 - 40 % [facility] Monocytes Percent Auto 4.3 2 - 11 % [facility] Eosinophils Percent Auto 0.1 0 - 4 % [facility] Basophils Percent Auto 0.3 0 - 2 % [facility] NRBC Pct Auto 0.0 0.0 - 0.2 /100WBC [facility] Neutrophils Absolute Auto 7.5 2.0 - 8.3 x10*3/uL [facility] Imm Gran Abs Auto 0.03 0.00 - 0.03 X10*3/uL [facility] Lymphocytes Absolute Auto 1.1(L) 1.2 - 4.9 X10*3/uL [facility] Monocytes Absolute Auto 0.4 0.1 - 1.2 X10*3/uL [facility] Eosinophils Absolute Auto 0.0 0.0 - 0.4 X10*3/uL [facility] Basophils Absolute Auto 0.0 0.0 - 0.2 X10*3/uL [facility] NRBC Abs Auto 0.000 0.0 - 0.012 X10*3/uL [facility] 10/17/2024 10:2 0 AM EDT 10/17/2024 10:26 AM EDT Generic External Data Provider LAB BLOOD ORDERAB LES Final Result Performing Organization Address City/[facility]/ZIP Co de Phone Number [facility] [address] [place] [phone] * Acetaminophen level (10/17/2024 10:20 AM EDT) Acetaminophen LAB <3 <30 mcg/mL [facility] 10/17/2024 10:2 0 AM EDT 10/17/2024 10:26 AM EDT Generic External Data Provider LAB BLOOD ORDERAB LES Final Result Performing Organization Address [facility] Co de Phone Number [facility] [address] [place] [phone] * (ABNORMAL) Salicylate (10/17/2024 10:20 AM EDT) Salicylate <5.0(L) 15 - 30 mg/dL [facility] 10/17/2024 10:2 0 AM EDT 10/17/2024 10:26 AM EDT Generic External Data Provider LAB BLOOD ORDERAB LES Final Result Performing Organization Address [facility] Co de Phone Number [facility] [address] [place] [phone] * (ABNORMAL) Comprehensive Metabolic Panel (10/17/2024 10:20 AM EDT) Sodium 141 135 - 145 mmol/L [facility] Potassium 3.7 3.3 - 5.1 mmol/L [facility] Chloride 109(H) 96 - 108 mmol/L [facility] Carbon Dioxide 23 22 - 29 mmol/L [facility] Anion Gap 13 12 - 20 [facility] Urea Nitrogen (BUN) 18(H) 9 - 16 mg/dL [facility] Creatinine, Serum 0.73 0.5 - 1.4 mg/dL [facility] Creatinine Clr Calc Pharmacy 87.6 [facility] Comment:Provided height and weight: 154.94 cm,44.8 kg.eGFR (calculated from the MDRD study equation) and eCrCl(calculated from the Cockcroft-Gault equation) are based ondifferent parameters and may not yield comparable results.If eCrCl result is absurd, please check patient'sheight/weight. Estimated Glomerular Filt Rate >60 [facility] Comment:Chronic Kidney Disea se: Estimated GFR < 60 mL/min/[id number] Kidney Disease: Estimated GFR < 15 mL/min/1.73m2 Glucose 92 60 - 115 mg/dL [facility] Calcium 9.2 8.4 - 10.2 mg/dL [facility] Bilirubin, Total 0.8 0.0 - 1.0 mg/dL [facility] Aspartate Amino Transferase 22 5 - 31 U/L [facility] Alanine Aminotransferase 25 0 - 31 U/L [facility] Total Protein 7.5 6.5 - 8.0 g/dL [facility] Albumin Level 4.9 3.5 - 5.0 g/dL [facility] Alkaline Phosphatase 85 39 - 117 U/L [facility] 10/17/2024 10:2 0 AM EDT 10/17/2024 10:26 AM EDT us Generic External Data Provider LAB BLOOD ORDERAB LES Final Result [facility] [address] [place] [phone] from Last 3 Months Insurance [facility] [employer] [facility] [employer] [facility] [facility] Care Teams Railroad Watchman Relationship Specialty Start Date End Date Peggy Martin DO [address] [place] [phone] PCP - General Pediatrics 03/28/18 Syl Muniz Disaster Director 02/13/24
--- OUTSIDE RECORDS SUMMARY | 2025-01-14 08:30 | XMS_ITS | Encounter Summary ---
Author Organization [employer] Address [address] [facility] 7[address] [place] [address] Care Team Providers Care Painter Chassis Name Role Phone Peggy Martin DO Primary Care Provider [phone] Encounter Details Date Type Department Care Team ([facility] st Contact Info) Description 01/26/2024 Orders Only [facility] [address] [place], [place] [phone] Andressa Capps CNM [address] [place], [place] [phone] Social History Tobacco Use Types Packs/Day Years [...] Description 02/06/2025 2:00 PM EST Office Visit [facility] [address] [place] [address] Amanda Hagan MD [address] [place] [address] documented as of this encounter Visit Diagnoses Not on filedocumented in this encounter Additional Health Concerns Assessment Noted Time PHQ-9 Depression Total Score: 0 07/31/19 23 5:07 PM EDT documented as of this encounter Care Teams Painter Chassis Relationship Specialty Start Date End Date Peggy Martin DO [address] [place] [address] PCP - General Pediatrics 03/28/18 Syl Muniz Security Systems Administrator 02/13/24 documented as of this encounter
--- OUTSIDE RECORDS SUMMARY | 2025-01-14 08:30 | XMS_ITS | Encounter Summary ---
Author Organization [employer] Address [address] [facility] 7t [place] [address] Care Team Providers Care Vineyard Supervisor Name Role Phone Peggy Martin DO Primary Care Provider [phone] Reason for Visit * Reason Comments Med Refill Encounter Details Date Type Department Care Team (Late st Contact Info) Description 12/27/2022 Refill [facility] [address] [place] [address] Peggy Martin DO [address] [place], [place] [phone] Attention deficit hyperactivity disorder (ADHD), predominantly inattentive [...] Description 02/06/2025 2:00 PM EST Office Visit [facility] [address] [place], [place] [phone] Amanda Hagan MD [address] [place] [address] documented as of this encounter Visit Diagnoses Diagnosis Attention deficit hyperactivity disorder (ADHD), predominantly inattentive type documented in this encounter Additional Health Concerns Assessment Noted Time PHQ-9 Depression Total Score: 0 07/31/19 23 5:07 PM EDT documented as of this encounter Care Teams Vineyard Supervisor Relationship Specialty Start Date End Date Peggy Martin DO [address] [place] [address] PCP - General Pediatrics 03/28/18 Syl Muniz Inspector Structural Bonding 02/13/24 documented as of this encounter
[2025-01-14 08:31] LABS: Hematocrit 34.2 % (37.0-47.0); Hemoglobin 11.5 g/dl (12.0-16.0); Imm Gran Abs Auto 0.02 X10*3/uL (0.00-0.03); Imm Gran Pct Auto 0.3 % (0.0-0.4); Lymphocytes Absolute Auto 1.3 X10*3/uL (1.2-4.9); Mean Corpuscular HGB Conc 33.6 g/dl (31.0-35.0); Mean Corpuscular Hemoglobin 25.2 pg (27.0-33.0); Mean Corpuscular Volume 74.8 fL (80.0-98.0); NRBC Abs Auto 0.000 X10*3/uL (0.0-0.012); NRBC Pct Auto 0.0 /100WBC (0.0-0.2); Platelet Count 203 X10*3/uL (160-400); Red Blood Count 4.57 X10*6/uL (4.20-5.50); White Blood Count 7.0 X10*3/uL (4.8-10.8)
[2025-01-14] MEDS: diazePAM 10 MG/2 ML CARTRIDGE 5 MG IVPUSH (08:41)
[2025-01-14] MEDS: Lactated Ringers 1,000 ML 999 ML IV (08:42)
[2025-01-14 08:49] VITALS: BP 131/77; PULSE 59; RESP 18; O2SAT 98
[2025-01-14 08:52] LABS: Alanine Aminotransferase 38 U/L (0-31); Albumin Level 4.6 g/dL (3.5-5.0); Alkaline Phosphatase 70 U/L (39-117); Anion Gap 16 (12-20); Aspartate Amino Transferase 27 U/L (5-31); Blood Urea Nitrogen 12 mg/dL (9-16); Calcium 8.9 mg/dL (8.4-10.2); Carbon Dioxide 19 mmol/L (22-29); Chloride 109 mmol/L (96-108); Creatinine Clr Calc Pharmacy 87.6; Estimated Glomerular Filt Rate > 60; Lipase 45 U/L (8-78); Magnesium 2.1 mg/dL (1.6-2.6); Potassium 3.6 mmol/L (3.3-5.1); Sodium 140 mmol/L (135-145); Total Protein 6.8 g/dL (6.5-8.0)
[2025-01-14 09:04] VITALS: BP 118/79; PULSE 53; RESP 12; O2SAT 98
[2025-01-14 10:19] VITALS: RESP 16
[2025-01-14 12:08] VITALS: BP 101/50; PULSE 72; RESP 16; TEMP 36.6; O2SAT 97
== END 2025-01-14 12:09 | disposition home or self-care (01) ==
PROVIDERS: Emergency Provider Emergency Medicine; PCP Pediatrics
DX: R11.16 Cannabis hyperemesis syndrome (principal); R10.10 Upper abdominal pain, unspecified; R11.10 Vomiting, unspecified; R94.31 Abnormal electrocardiogram [ECG] [EKG]
CPT/HCPCS: 36415; 76705; 80048; 80076; 83690; 83735; 84702; 85025; 93005; 96361; 96374; 96375; 99284; J1308; J1885; J2270; J3360; J7120

== ENCOUNTER → 2025-01-14 08:04 | Outpatient (BNV) | payer MEDICAID, SELFPAY | PROVIDERS: Emergency Provider Emergency Medicine; PCP Pediatrics; Visit Provider Radiology Diagnostic Radiology | DX: R10.11 Right upper quadrant pain (principal) | CPT/HCPCS: 76705 ==

== ENCOUNTER → 2025-01-14 08:05 | Outpatient (BNV) | payer MEDICAID, SELFPAY | PROVIDERS: Emergency Provider Emergency Medicine; PCP Pediatrics; Visit Provider Internal Medicine Cardiovascular Disease | DX: I49.9 Cardiac arrhythmia, unspecified (principal) | CPT/HCPCS: 93010 ==

== ENCOUNTER 2025-01-17 18:25 | Outpatient (REF) | payer MEDICAID, SELFPAY ==
--- OUTSIDE RECORDS SUMMARY | 2025-01-17 19:44 | XMS_ITS | Clinical Summary ---
Author Organization [facility] Address [address] [address] Phone Care Team Providers Care Manager Sign Name Role Phone Peggy Martin DO Primary Care Provider [phone] Allergies No known active allergies Medications famotidine [...] would be interested in membrane sweep at [place] if no spontaneous labor. We discussed post [...] (02/10/2024 8:13 PM EST): Pt presents to [facility] c/o continuous vomiting for the past 18 [...] not tolerate. Pt has been seen at [facility] for this complaint before. Encounters Date Type Department Care Team Description 11/01/2024 4:00 PM EDT Office Visit [facility] [address] [address] Rigo Boogie, ANDRY Encounter for removal of [...] with no immediate complications Rigo Boogie CNP [place] [facility] Final Result * Hepatitis C antibody, qualitative (11/07/2023 3:20 PM EDT) HCV NON-REACTIV E NON-REACTI VE [facility] Blood 11/07/2023 3:20 PM EDT 11/07/2023 3:30 PM EDT Cristy Garcia CNM LAB BLOOD ORDERABLES F inal Result [address] [address] * Chlamydia Trachomatis and Neisseria Gonorrhoeae Nucleic Acid Detection (10/05/2023 11:18 AM EDT) CHLAMYDIA TRACHOMATIS Not Detected Not Detected [facility] NEISERIA GONORRHOEAE Not Detected Not Detected [facility] SPECIMEN TYPE URINE [facility] Urine (Urine) 10/05/2023 11: 18 AM EDT 10/05/2023 3:25 PM EDT Cristy Garcia CNM NON CULTURE MICROBIOLO GY Final Result Performing Organization Address City/[facility]/ZIP Co de Phone Number [address] [address] from Last 3 Months or Most Recently Relevant to Health Maintenance Insurance C3 ACO C3 ACO [facility] C3 ACO [facility] C3 ACO [facility] C3 [place] [address] [address] [facility] C3 ACO Advance Directives For more information, please contact: [phone] (9AM - 5PM [place], Tuesday-Tuesday) * Full [...] Code Status Confirmed With: Patient Care Teams Manager Sign Relationship Specialty Start Date End Date Peggy Martin DO [address] [place] [phone] PCP - General Pediatrics 05/16/23 Additional Source Comments The information contained in this document represents components of the legal health record. It is not the complete legal health record.[facility]
[2025-01-18 05:32] LABS: Bacterial Vaginosis PCR POSITIVE (Negative); Candida Group PCR DETECTED (Not Detect); Candida glab krusei PCR NOT DETECTED (Not Detect); Trichomonas vaginalis PCR NOT DETECTED (Not Detect)
== END 2025-01-17 18:26 | disposition home or self-care (01) ==
LOC: HO.HHCLNP 18:25
PROVIDERS: Visit Provider Advanced Practice Midwife
DX: N89.8 Other specified noninflammatory disorders of vagina (principal); Z20.2 Contact with and (suspected) exposure to infections with a predominantly sexual mode of transmission
CPT/HCPCS: 81515

== ENCOUNTER 2025-02-07 13:26 | Emergency (ER) | payer MEDICAID, SELFPAY ==
--- OUTSIDE RECORDS SUMMARY | 2025-02-01 08:50 | XMS_ITS | Encounter Summary ---
Author Organization [facility] Address [address] [facility] [address] [place] [address] Phone Care Team Providers Care Vp Rheumatology Name Role Phone Peggy Martin DO Primary Care Provider [phone] Reason for Visit * Reason Comments Rash Pt presents for bump s, redness, itchiness on armpits, arms, back of neck x 1.5 week. Pt states the rash started in armpits and moved to the other areas over the span of a week. Pt reports using new deodorant and taking new anti-nausea med prior to rash presenting. Pt states she believes the rash is due to yeast. Pt reports vaginal discharge that is clumpy and white . * Consultation (Routine) - Pending Review Specialty Diagnoses / Procedures Referred By Contzully t Referred To Contact Physician Tattoo Designer / Urgent Care Diagnoses Dermatitis, unspecified rash in armpits, arms, back of neck Procedures UC VISIT Peggy Martin DO [address] [place] [address] Phone: tel: fax: Fawn Velásquez PA-C [address] [place] [address] Phone: tel: fax: [email or web address] Referral ID Status Reason Start Date Expiration Date V isits Requested Visits Authorized [id number] Pending Review 02/01/2025 3 0 Encounter Details Date Type Department Care Team (Late st Contact Info) Description 02/01/2025 8:50 AM EST Office Visit [facility] [address] [place] [address] Pardeep Sarmiento PA-C [address] [place] [address] Fawn Velásquez PA-C [address] [place] [address] Dermatitis, unspecified (Primary Dx); Acute vaginitis Social History Tobacco Use Types Packs/Day Years [...] Orientation Straight 06/12/2023 4: 34 AM EDT documented as of this encounter Last Filed Vital Signs Vital Sign Reading Time Taken Comments Blood Pressure 106/76 02/01/2025 8:28 AM EST Pulse 80 02/01/2025 8:28 AM EST Temperature 36.6 C (97.8 F) 02/01/2025 8:28 AM EST Respiratory Rate 16 02/01/2025 8:28 AM EST Oxygen Saturation 97% 02/01/2025 8:28 AM EST Inhaled Oxygen Concentration - - Weight 42.6 kg (94 lb) 02/01/2025 8:28 AM EST Height 154.9 cm (5' 1 ) 02/01/2025 8:28 AM EST Body Mass Index 17.76 02/01/2025 8:28 AM EST documented in this encounter Patient Instructions * Patient Instructions* Fawn Velásquez PA-C - 02/01/2025 8:50 AM EST Use both ointments as directed. The triamcinolone is for your underarms and other itchy areas. The Monistat is for the vaginal yeast infection. Follow with primary care if not improved next week. Go to ER for fever, chills, abdominal pain, red streaking from the rash or any problems. * Attachments The following attachments cannot be sent through Care Everywhere. * Vaginal Yeast Infection (Ugandan) * Dermatitis (Ugandan) documented in this encounter Progress Notes * Fawn Velásquez PA-C - 02/01/2025 8:50 AM EST Images from the original note were not included. Subjective: Patient ID: Eloisa Treviño is a 19 y.o. female. Eloisa presents with 2 complaints. The first is that she states that she changed her deodorant roughly 2 weeks ago and has a history of sensitive skin, noting a pruritic erythematous exanthem at the region of application of deodorant bilateral axilla with scattered punctate rash on the right shoulder and bilateral popliteal regions. Her second complaint involves pruritic white curd-like vaginal discharge x 2 days. She had a similar infection roughly 2 weeks ago which resolved with [id number] cream but now has returned. Shedenies abdominal pain, fever chills myalgia, throat tightness or trouble swallowing or breathing. Review of Systems All other systems reviewed and are negative. Vitals: 02/01/25 0828 BP: 106/76 Pulse: 80 Resp: 16 Temp: 36.6 ??C (97.8 ??F) TempSrc: Temporal SpO2: 97% Weight: 42.6 kg (94 lb) Height: 154.9 cm (5' 1 ) Objective: Physical Exam Vitals and nursing note reviewed. Constitutional: General: She is not in acute distress. Appearance: Normal appearance. She is normal weight. She is not ill-appearing. HENT: Head: Normocephalic and atraumatic. Right Ear: External ear normal. Left Ear: External ear normal. Nose: Nose normal. Mouth/Throat: Mouth: Mucous membranes are moist. Pharynx: Oropharynx is clear. Eyes: Conjunctiva/sclera: Conjunctivae normal. Pupils: Pupils are equal, round, and reactive to light. Cardiovascular: Rate and Rhythm: Normal rate and regular rhythm. Heart sounds: Normal heart sounds. Pulmonary: Effort: Pulmonary effort is normal. Breath sounds: Normal breath sounds. Musculoskeletal: General: Normal range of motion. Cervical back: Normal range of motion and neck supple. No tenderness. Lymphadenopathy: Cervical: No cervical adenopathy. Skin: General: Skin is warm and dry. Comments: Bilateral axilla show erythematous plaque-like raised lesions involving the entire axilla. There are scattered punctate erythematous pruritic lesions at the right trapezius and bilateral popliteal regions. There is no fluctuance, discharge or streaking. Neurological: General: No focal deficit present. Mental Status: She is alert. Psychiatric: Mood and Affect: Mood normal. No results found for this visit on 02/01/25. Procedure: Procedures Assessment/Plan: Diagnosis Plan 1. Dermatitis, unspecified 2. Acute vaginitis Assessment and Plan: Eloisa presents with signs and symptoms of vaginal candidiasis as well as contact dermatitis related to new deodorant. She is treated with Monistat x 7 nights as well as triamcinolone topically for the exanthem. She is nontoxic and comfortable and verbalized understanding of signs and symptoms requiring further * Shaheen Graham MD - 02/01/2025 8:50 AM EST Subject Line: Provider Attestation I have reviewed the notes, assessments, and/or procedures performed by Fawn Velásquez PA-C, I concur with her/his documentation of Eloisa Treviño. documented in this encounter Plan of Treatment Not on file documented as of this encounter Visit Diagnoses Diagnosis Dermatitis, unspecified- Primary Acute vaginitis Unspecified vaginitis and vulvovaginitis documented in this encounter Care Teams Vp Rheumatology Relationship Specialty Start Date End Date Peggy Martin DO [address] [place] [address] PCP - General Pediatrics 05/16/23 documented as of this encounter Additional Source Comments The information contained in this document represents components of the legal health record. It is not the complete legal health record.[facility]
--- OUTSIDE RECORDS SUMMARY | 2025-02-06 14:00 | XMS_ITS | Encounter Summary ---
Author Organization [employer] Address [address] [facility] [address] [place] [address] Care Team Providers Care Sign Board Erector Name Role Phone Peggy Martin DO Primary Care Provider [phone] Reason for Visit * Reason Comments transfer pt Encounter Details Date Type Department Care Team ([facility] st Contact Info) Description 02/06/2025 2:00 PM EST Office Visit [facility] [address] [place], [place] [id number] Amanda Hagan MD [address] [place], [place] [id number] Dietary counseling; Exercise counseling; Underweight; Mild intermittent asthma, unspecified whether complicated; Seborrheic dermatitis Social History Tobacco Use Types Packs/Day Years Used Date Smoking Tobacco: Never Passive Smoke Exposure: Never Smokeless Tobacco: Never Alcohol Use Standard Drinks/Week Comments Yes 0 (1 standard drink = 0.6 oz pur e alcohol) Depression Answer Date Recorded Patient Health Questionnaire-9 Score 7 02/06/2025 Patient Health Questionnaire-9 Score 7 02/06/2025 Last PHQ-9: Questionnaire Data Not on file 1 04/08/2024 Housing Stability Answer Date Recorded What is [...] Date Recorded Patient Health Questionnaire-2 Score 0 02/06/2025 Internet Access Answer Date Recorded Internet Access [...] Sign Reading Time Taken Comments Blood Pressure 98/70 02/06/2025 2:12 PM EST Pulse 84 02/06/2025 2:12 PM EST Temperature 36.4 C (97.6 F) 02/06/2025 2:12 PM EST Respiratory Rate 21 02/06/2025 2:12 PM EST Oxygen Saturation - - Inhaled Oxygen Concentration - - Weight 44.5 kg (98 lb) 02/06/2025 2:12 PM EST Height 154.9 cm (5' 1 ) 02/06/2025 2:12 PM EST Body Mass Index 18.52 02/06/2025 2:12 PM EST documented in this encounter Functional Status * Over the past 2 weeks, how often have you been bothered by any of the following problems? Question Answer Date of Assessment Author Patient Health Questionnaire -2 Score 0 02/06/2025 2:13 PM EST Jessica Caba MA * Little interest or pleasure in doing things Answer Date of Assessment Author Not at all 02/06/2025 2:13 PM EST Jessica Caba MA * Feeling down, depressed, or hopeless Answer Date of Assessment Author Not at all 02/06/2025 2:13 PM EST Jessica Caba MA * Trouble falling or staying asleep, or sleeping too much Answer Date of Assessment Author Not at all 02/06/2025 2:13 PM Jessica Zaldivar MA * Feeling tired or having little energy Answer Date of Assessment Author Not at all 02/06/2025 2:13 PM Jessica Zaldivar MA * Poor appetite or overeating Answer Date of Assessment Author Nearly every day 02/06/2025 2:13 PM Jessica Zaldivar MA * Feeling bad about yourself - or that you are a failure or have let yourself or your family down Answer Date of Assessment Author Several days 02/06/2025 2:13 PM Jessica Zaldivar MA * Trouble concentrating on things, such as reading the newspaper or watching television Answer Date of Assessment Author Nearly every day 02/06/2025 2:13 PM Jessica Zaldivar MA * Moving or speaking so slowly that other people could have noticed? Or the opposite - being so fidgety or restless that you have been moving around a lot more than usual. Answer Date of Assessment Author Not at all 02/06/2025 2:13 PM Jessica Zaldivar MA * Thoughts that you would be better off or hurting yourself in some way Answer Date of Assessment Author Not at all 02/06/2025 2:13 PM Jessica Zaldivar MA * Patient Health Questionnaire-9 Score Answer Date of Assessment Author 7 02/06/2025 2:13 PM Jessica Zaldivar MA * Over the last 2 weeks, how often have you been bothered by any of the following problems? Question Answer Date of Assessment Author Feeling nervous, anxious, or on edge 3 02/06/2025 2:13 PM Jessica Zalidvar MA Not being able to stop or co ntrol worrying 3 02/06/2025 2:13 PM Jessica Zaldivar MA Worrying too much about diff erent things 3 02/06/2025 2:13 PM Jessica Zaldivar MA Trouble relaxing 3 02/06/2025 2:13 PM Jessica Schneider MA Being so restless that it is hard to sit still 3 02/06/2025 2:13 PM Jessica Zaldivar MA Becoming easily annoyed or irritable 3 02/06/2025 2:13 PM Jessica Zaldivar MA Feeling afraid as if somethi ng awful might happen 3 02/06/2025 2:13 PM Jessica Zaldivar MA DEE-7 Total Score 21 02/06/2025 2:13 PM Jessica Zaldivar MA * How difficult have these problems made it for you to do your work, take care of things at home, or get along with other people? Answer Date of Assessment Author Somewhat difficult 02/06/2025 2:13 PM Jessica Emerson MA documented as of this encounter Plan of Treatment Not on file documented as of this encounter Visit Diagnoses Diagnosis Dietary counseling Dietary surveillance and counseling Exercise counseling Underweight Mild intermittent asthma, unspecified whether complicated Seborrheic dermatitis Unspecified seborrheic dermatitis documented in this encounter Additional Health Concerns Assessment Noted Time PHQ-9 Depression Total Score: 7 02/07/20 25 2:13 PM EST documented as of this encounter Care Teams Sign Board Erector Relationship Specialty Start Date End Date Peggy Martin DO [address] [place] [address] PCP - General Pediatrics 03/28/18 Syl Muniz Air Twister Winder 02/13/24 documented as of this encounter
[2025-02-07 13:38] VITALS: BP 116/64; PULSE 87; RESP 18; TEMP 37; O2SAT 100; BMI 18.1
--- NOTE | 2025-02-07 13:40 | ED_ITS ---
HPI - General Adult General Chief complaint: Abdominal Pain Stated complaint: General Medical Time Seen by Provider: 02/07/25 17:24 Related Data Previous Rx's ?Medication ?Instructions ?Recorded clonidine HCl 0.1 mg tablet 0.1 mg PO BEDTIME 30 days #30 tabs 10/22/24 nicotine (polacrilex) 4 mg gum 4 mg buccal Q2H PRN laverne otine 10/22/24 cravings 30 days #100 ea nicotine 21 mg/24 hr daily 21 mg transdermal DAILY PRN 10/22/24 transdermal patch smoking cessation 28 days #2 8 ea aripiprazole 2 mg tablet 2 mg PO BEDTIME as directed #14 11/05/24 tabs mirtazapine 15 mg tablet 15 mg PO BEDTIME 30 days #15 tabs 11/05/24 famotidine 20 mg tablet 20 mg PO BEDTIME #30 tabs ondansetron 4 mg disintegrating 4 mg PO Q8H PRN nausea and 01/13/25 tablet vomiting #4 tabs sucralfate 1 gram tablet (Carafate) 1 g PO Q6H 7 days #28 tabs 01/13/25 capsaicin 0.025 % topical cream 1 appl topical QID abd ominal pain 01/14/25 #120 grams lorazepam 1 mg tablet (Ativan) 1 mg PO BEDTIME PRN sle ep #5 tabs 01/14/25 prochlorperazine 25 mg rectal 25 mg RI BID PRN nausea and 01/14/25 suppository (Compazine) vomiting #12 ea ondansetron 4 mg disintegrating 4 mg PO TID PRN nausea and 02/08/25 tablet vomiting 5 days #10 tabs pantoprazole 40 mg tablet,delayed 40 mg PO DAILY #14 t abs 02/08/25 release (Protonix) Allergies Allergy/AdvReac Type Severity Reaction Status Date / Time No Known Allergies Allergy Verified 02/07/25 13:41 [facility] Past Medical History Medical History Depression MDD (major depressive disorder) PCOS (polycystic ovarian syndrome) ADHD Asthma Social History Social History Household Members: Significant Other, Family and Children Household Members Other:: Adoptive mother, partner, and their child Housing: House Do you presently have visiting nurse or other home services: No Patient Tobacco Use Status: Current everyday Tobacco user Tobacco use type: Smokeless Tobacco Years Smoked: 5 Smoked in Last 30 Days: No e-Cigarette/Vaping Use: Currently Using Second Hand Smoke Exposure: No Use of substances other than those prescribed or required for medical reasons: No Substance Use Type: Marijuana Advance Directives: No Advance Directives Information Provided: Yes Patient : No service: No Sexual orientation: Straight/Heterosexual Physical Exam ED Vital Signs: Vital Signs - 24 hr 02/07/25 13:38 02/07/25 18:26 02/07/25 22:10 Temperature 98.6 F 97.4 F 97.4 F Pulse Rate 87 88 78 Respiratory Rate 18 16 14 Blood Pressure 116/64 104/63 125/78 Pulse Oximetry 100 100 99 Oxygen Delivery Method Room Air Room Air Room Air BMI result Body Mass Index 18.1 Course Course Course Narrative: RME: 19 yold female presents to the ED for upper abdominal pain with nuasea and vomitting. patient has had this past before in the past. Patient usually treated with antinausea medications. labs ordered. Medications Administered Discontinued Medications Generic Name Dose Route Start Last Admin Trade Name Freq PRN Reason Stop Dose Admin Al Hydroxide/Mg Hydroxide 30 ml 02/08/25 00:50 02/08/25 01:29 Magnesium Hydrox/Alum Hydrox 30 Ml Oral.Susp PO 02/08/25 00:51 30 ml ONCE ONE Administration Diphenhydramine HCl 25 mg 02/07/25 17:49 02/07/25 18:24 Diphenhydramine Hcl 50 Mg/Ml Vial IVPUSH 02/07/25 17:50 25 mg ONCE ONE Administration Diphenhydramine HCl 25 mg 02/08/25 00:03 02/08/25 00:16 Diphenhydramine Hcl 50 Mg/Ml Vial IVPUSH 02/08/25 00:04 25 mg ONCE ONE Administration Droperidol 0.625 mg 02/07/25 17:48 02/07/25 18:24 Droperidol 5 Mg/2 Ml Vial IVPUSH 02/07/25 17:49 0.625 mg ONCE ONE Administration Sodium Chloride 1,000 mls @ 999 mls/hr 02/07/25 18:00 02/07/25 23:43 Ns IV 02/07/25 19:00 Infused .Q1H1M JADEN Infusion Sodium Chloride 1,000 mls @ 999 mls/hr 02/07/25 18:00 02/07/25 23:44 Ns IV 02/07/25 19:00 Infused .Q1H1M JADEN Infusion Sodium Chloride 1,000 mls @ 999 mls/hr 02/07/25 23:45 02/08/25 01:31 Ns IV 02/08/25 00:45 Infused .Q1H1M JADEN Infusion Ketorolac Tromethamine 15 mg 02/07/25 18:37 02/07/25 18:42 Ketorolac Tromethamine 15 Mg/Ml Vial IVPUSH 02/07/25 18:38 15 mg ONCE ONE Administration Metoclopramide HCl 10 mg 02/08/25 00:53 02/08/25 01:28 Metoclopramide Hcl 10 Mg/2 Ml Vial IVPUSH 02/08/25 00:54 10 mg ONCE ONE Administration Ondansetron HCl 4 mg 02/07/25 23:54 02/08/25 00:17 Ondansetron Hcl 4 Mg/2 Ml Vial IVPUSH 02/07/25 23:55 4 mg ONCE ONE Administration Pantoprazole Sodium 40 mg 02/08/25 01:38 02/08/25 02:11 Pantoprazole Sodium 40 Mg/10 Ml Vial IVPUSH 02/08/25 01:39 40 mg ONCE ONE Administration Medical Decision Making Lab Data 02/07/25 13:58 02/07/25 13:58 Labs: Lab Results 02/07/25 02/07/25 02/07/25 Range/Units 13:58 18:19 22:12 WBC 11.4 H (4.8-10.8) X10*3/uL RBC 5.17 (4.20-5.50) X10*6/uL Hgb 12.8 (12.0-16.0) g/dl Hct 37.6 (37.0-47.0) % MCV 72.7 L (80.0-98.0) fL MCH 24.8 L (27.0-33.0) pg MCHC 34.0 (31.0-35.0) g/dl RDW 14.6 (11.0-16.0) % Plt Count 279 D (160-400) X10*3/uL MPV 11.6 (9.4-12.3) fL Immature Gran % (Auto) 0.3 (0.0-0.4) % Neut % (Auto) 87.8 H (45-73) % Lymph % (Auto) 8.1 L (20-40) % [place] % (Auto) 3.3 (2-11) % Eos % (Auto) 0.0 (0-4) % Baso % (Auto) 0.5 (0-2) % Lymph # (Auto) 0.9 L (1.2-4.9) X10*3/uL [place] # (Auto) 0.4 (0.1-1.2) X10*3/uL Eos # (Auto) 0.0 (0.0-0.4) X10*3/uL Baso # (Auto) 0.1 (0.0-0.2) X10*3/uL Abs Immat Gran (auto) 0.03 (0.00-0.03) X10*3/uL Absolute Neuts (auto) 10.0 H (2.0-8.3) x10*3/uL Absolute Nucleated RBC 0.000 (0.0-0.012) X10*3/uL Nucleated RBC % (auto) 0.0 (0.0-0.2) /100WBC Sodium 141 (135-145) mmol/L Potassium 3.3 (3.3-5.1) mmol/L Chloride 108 (96-108) mmol/L Carbon Dioxide 18 L (22-29) mmol/L Anion Gap 18 (12-20) BUN 14 (9-16) mg/dL Creatinine 0.66 (0.5-1.4) mg/dL Estim Creat Clear Calc 94.2 Estimated GFR > 60 Random Glucose 125 H (60-115) mg/dL Calcium 9.9 D (8.4-10.2) mg/dL Magnesium 1.7 (1.6-2.6) mg/dL Total Bilirubin 1.0 (0.0-1.0) mg/dL AST 23 (5-31) U/L ALT 10 (0-31) U/L Alkaline Phosphatase 77 (39-117) U/L Total Protein 7.8 (6.5-8.0) g/dL Albumin 5.1 H (3.5-5.0) g/dL Lipase 56 31 (8-78) U/L Beta HCG, Quant < 2 mIU/mL Urine Color Yellow Urine Appearance Clear Urine pH 7.0 (5.0-9.0) Ur Specific [place] 1.020 (1.005-1.025) Urine Protein Trace (Neg-Trace) mg/dL Urine Glucose (UA) Negative (Negative) mg/dL Urine Ketones 80 (Negative) mg/dL Urine Blood Negative (Negative) Urine Nitrite Negative (Negative) Ur Leukocyte Esterase Trace H (Negative) Urine RBC 0-2 (0-2) /HPF Urine WBC 0-5 (0-5) /HPF Ur Squamous Epith Cells 0-2 (0-2) /HPF Urine Bacteria None Seen (None Seen) Hyaline Casts 0-2 (0-2) /LPF Discharge Plan Discharge Clinical Impression: Nausea & vomiting Patient Disposition: Home, Self-Care Instructions: Acute Nausea and Vomiting (ED) Prescriptions: New pantoprazole [Protonix] 40 mg tablet,delayed release (DR/EC) 40 mg PO DAILY Qty: 14 0RF ondansetron 4 mg tablet,disintegrating 4 mg PO TID PRN (Reason: nausea and vomiting) 5 Days Qty: 10 0RF No Action nicotine 21 mg/24 hr Patch 24 Hour 21 mg transdermal DAILY PRN (Reason: smoking cessation) 28 Days Qty: 28 0RF Rx Instructions: remove at bedtime clonidine HCl 0.1 mg Tablet 0.1 mg PO BEDTIME 30 Days Qty: 30 0RF Protocol: Hold for SBP< HOLD for SBP < : 90 nicotine (polacrilex) 4 mg gum 4 mg buccal Q2H PRN (Reason: nicotine cravings) 30 Days Qty: 100 0RF aripiprazole 2 mg tablet 2 mg PO BEDTIME Qty: 14 0RF mirtazapine 15 mg tablet 15 mg PO BEDTIME 30 Days Qty: 15 0RF prochlorperazine [Compazine] 25 mg suppository 25 mg RI BID PRN (Reason: nausea and vomiting) Qty: 12 0RF capsaicin 0.025 % cream 1 appl topical QID Qty: 120 0RF Rx Instructions: do not wash area for at least 30 min after application lorazepam [Ativan] 1 mg tablet 1 mg PO BEDTIME PRN (Reason: sleep) Qty: 5 0RF sucralfate [Carafate] 1 gram tablet 1 g PO Q6H 7 Days Qty: 28 0RF famotidine 20 mg tablet 20 mg PO BEDTIME Qty: 30 0RF ondansetron 4 mg tablet,disintegrating 4 mg PO Q8H PRN (Reason: nausea and vomiting) Qty: 4 0RF Referrals: [place],[facility] [Physician, Medical] - 02/11/25 Interventions: ED Discharge Assessment Last Done: 02/08/25 02:14 Discharge Date/Time: 02/08/25 02:31 Print Language: Tajik
[2025-02-07 14:10] LABS: MANUAL DIFF FLAG NO
[2025-02-07 14:11] LABS: Hematocrit 37.6 % (37.0-47.0); Hemoglobin 12.8 g/dl (12.0-16.0); Imm Gran Abs Auto 0.03 X10*3/uL (0.00-0.03); Imm Gran Pct Auto 0.3 % (0.0-0.4); Lymphocytes Absolute Auto 0.9 X10*3/uL (1.2-4.9); Mean Corpuscular HGB Conc 34.0 g/dl (31.0-35.0); Mean Corpuscular Hemoglobin 24.8 pg (27.0-33.0); Mean Corpuscular Volume 72.7 fL (80.0-98.0); NRBC Abs Auto 0.000 X10*3/uL (0.0-0.012); NRBC Pct Auto 0.0 /100WBC (0.0-0.2); Platelet Count 279 X10*3/uL (160-400); Red Blood Count 5.17 X10*6/uL (4.20-5.50); White Blood Count 11.4 X10*3/uL (4.8-10.8)
[2025-02-07 14:37] LABS: Alanine Aminotransferase 10 U/L (0-31); Albumin Level 5.1 g/dL (3.5-5.0); Alkaline Phosphatase 77 U/L (39-117); Anion Gap 18 (12-20); Aspartate Amino Transferase 23 U/L (5-31); Blood Urea Nitrogen 14 mg/dL (9-16); Calcium 9.9 mg/dL (8.4-10.2); Carbon Dioxide 18 mmol/L (22-29); Chloride 108 mmol/L (96-108); Creatinine Clr Calc Pharmacy 94.2; Estimated Glomerular Filt Rate > 60; Lipase 56 U/L (8-78); Magnesium 1.7 mg/dL (1.6-2.6); Potassium 3.3 mmol/L (3.3-5.1); Sodium 141 mmol/L (135-145); Total Protein 7.8 g/dL (6.5-8.0)
--- NOTE | 2025-02-07 17:51 | ED.ABDPAIN ---
HPI - Abdominal Pain General Chief Complaint: Abdominal Pain Stated Complaint: General Medical Time Seen by Provider: 02/07/25 17:24 History of Present Illness HPI narrative: patient is 19 years old presented today with having epigastric pain nausea vomiting. History of cannabis induced hyperemesis. Patient stated she did not use cannabis in the last week to 2 weeks. No fever no chills. Positive epigastric pain. Positive diarrhea. No blood. Patient from home. No coughing or congestion or upper respiratory symptoms. No diaphoresis. Been having these symptoms for the last year or so Related Data Previous Rx's ?Medication ?Instructions ?Recorded clonidine HCl 0.1 mg tablet 0.1 mg PO BEDTIME 30 days #30 tabs 10/22/24 nicotine (polacrilex) 4 mg gum 4 mg buccal Q2H PRN nicotine 10/22/24 cravings 30 days #100 ea nicotine 21 mg/24 hr daily 21 mg transdermal DAILY PRN 10/22/24 transdermal patch smoking cessation 28 days #28 ea aripiprazole 2 mg tablet 2 mg PO BEDTIME as directed #14 11/05/24 tabs mirtazapine 15 mg tablet 15 mg PO BEDTIME 30 days #15 tabs 11/05/24 famotidine 20 mg tablet 20 mg PO BEDTIME #30 tabs 01/13/25 ondansetron 4 mg disintegrating 4 mg PO Q8H PRN nausea and 01/13/25 tablet vomiting #4 tabs sucralfate 1 gram tablet (Carafate) 1 g PO Q6H 7 days #28 tabs 01/13/25 capsaicin 0.025 % topical cream 1 appl topical QID abdominal pain 01/14/25 #120 grams lorazepam 1 mg tablet (Ativan) 1 mg PO BEDTIME PRN sleep #5 tabs 01/14/25 prochlorperazine 25 mg rectal 25 mg KS BID PRN nausea and 01/14/25 suppository (Compazine) vomiting #12 ea Allergies Allergy/AdvReac Type Severity Reaction Status Date / Time No Known Allergies Allergy Verified 02/07/25 13:41 Review of Systems Review of Systems positive nausea vomiting. Positive diarrhea Yes all other systems are reviewed and are negative PMFSH Past Medical History Attestation statement: The following information was validated with the patient. Medical History Depression MDD (major depressive disorder) PCOS (polycystic ovarian syndrome) ADHD Asthma Social History Social History Household Members: Significant Other, Family and Children Household Members Other:: Adoptive mother, partner, and their child Housing: House Do you presently have visiting nurse or other home services: No Patient Tobacco Use Status: Current everyday Tobacco user Tobacco use type: Smokeless Tobacco Years Smoked: 5 e-Cigarette/Vaping Use: Currently Using Second Hand Smoke Exposure: No Substance Use Type: Marijuana Advance Directives: No Advance Directives Information Provided: Yes service: No Sexual orientation: Straight/Heterosexual Physical Exam ED Exam Exam: Appearance: Alert. Oriented X3. No acute distress. Eyes: Pupils equal, round and reactive to light. ENT: Pharynx normal. Neck: Normal inspection. Neck supple. No lymph nodes noted. No crepitus CVS: Normal heart rate and rhythm. Pulses normal. Normal S1 and S2 Respiratory: No respiratory distress. Breath sounds normal. No Wheezing. No rales Abdomen: Soft and nontender. No rigidity. No distention. good BS x4 Skin: Skin warm and dry. Normal skin color. Normal skin turgor. Extremities: No lower extremity edema. Neurovascular intact to all extremities. No Lacerations. No Rash Neuro: Oriented X 3. No motor deficit. No sensory deficit. Moving all extermities. No slurred speech Vital Signs: Vital Signs - 24 hr 02/07/25 13:38 Temperature 98.6 F Pulse Rate 87 Respiratory Rate 18 Blood Pressure 116/64 Pulse Oximetry 100 Oxygen Delivery Method Room Air BMI result Body Mass Index 18.1 Medical Decision Making Lab Data 02/07/25 13:58 02/07/25 13:58 Labs: Lab Results 02/07/25 Range/Units 13:58 WBC 11.4 H (4.8-10.8) X10*3/uL RBC 5.17 (4.20-5.50) X10*6/uL Hgb 12.8 (12.0-16.0) g/dl Hct 37.6 (37.0-47.0) % MCV 72.7 L (80.0-98.0) fL MCH 24.8 L (27.0-33.0) pg MCHC 34.0 (31.0-35.0) g/dl RDW 14.6 (11.0-16.0) % Plt Count 279 D (160-400) X10*3/uL MPV 11.6 (9.4-12.3) fL Immature Gran % (Auto) 0.3 (0.0-0.4) % Neut % (Auto) 87.8 H (45-73) % Lymph % (Auto) 8.1 L (20-40) % Swisher % (Auto) 3.3 (2-11) % Eos % (Auto) 0.0 (0-4) % Baso % (Auto) 0.5 (0-2) % Lymph # (Auto) 0.9 L (1.2-4.9) X10*3/uL Swisher # (Auto) 0.4 (0.1-1.2) X10*3/uL Eos # (Auto) 0.0 (0.0-0.4) X10*3/uL Baso # (Auto) 0.1 (0.0-0.2) X10*3/uL Abs Immat Gran (auto) 0.03 (0.00-0.03) X10*3/uL Absolute Neuts (auto) 10.0 H (2.0-8.3) x10*3/uL Absolute Nucleated RBC 0.000 (0.0-0.012) X10*3/uL Nucleated RBC % (auto) 0.0 (0.0-0.2) /100WBC Sodium 141 (135-145) mmol/L Potassium 3.3 (3.3-5.1) mmol/L Chloride 108 (96-108) mmol/L Carbon Dioxide 18 L (22-29) mmol/L Anion Gap 18 (12-20) BUN 14 (9-16) mg/dL Creatinine 0.66 (0.5-1.4) mg/dL Estim Creat Clear Calc 94.2 Estimated GFR > 60 Random Glucose 125 H (60-115) mg/dL Calcium 9.9 D (8.4-10.2) mg/dL Magnesium 1.7 (1.6-2.6) mg/dL Total Bilirubin 1.0 (0.0-1.0) mg/dL AST 23 (5-31) U/L ALT 10 (0-31) U/L Alkaline Phosphatase 77 (39-117) U/L Total Protein 7.8 (6.5-8.0) g/dL Albumin 5.1 H (3.5-5.0) g/dL Lipase 56 (8-78) U/L Beta HCG, Quant < 2 mIU/mL Discharge Plan Discharge Prescriptions: No Action nicotine 21 mg/24 hr Patch 24 Hour 21 mg transdermal DAILY PRN (Reason: smoking cessation) 28 Days Qty: 28 0RF Rx Instructions: remove at bedtime clonidine HCl 0.1 mg Tablet 0.1 mg PO BEDTIME 30 Days Qty: 30 0RF Protocol: Hold for SBP< HOLD for SBP < : 90 nicotine (polacrilex) 4 mg gum 4 mg buccal Q2H PRN (Reason: nicotine cravings) 30 Days Qty: 100 0RF aripiprazole 2 mg tablet 2 mg PO BEDTIME Qty: 14 0RF mirtazapine 15 mg tablet 15 mg PO BEDTIME 30 Days Qty: 15 0RF prochlorperazine [Compazine] 25 mg suppository 25 mg KS BID PRN (Reason: nausea and vomiting) Qty: 12 0RF capsaicin 0.025 % cream 1 appl topical QID Qty: 120 0RF Rx Instructions: do not wash area for at least 30 min after application lorazepam [Ativan] 1 mg tablet 1 mg PO BEDTIME PRN (Reason: sleep) Qty: 5 0RF sucralfate [Carafate] 1 gram tablet 1 g PO Q6H 7 Days Qty: 28 0RF famotidine 20 mg tablet 20 mg PO BEDTIME Qty: 30 0RF ondansetron 4 mg tablet,disintegrating 4 mg PO Q8H PRN (Reason: nausea and vomiting) Qty: 4 0RF Print Language: Nauruan
[2025-02-07 18:26] VITALS: BP 104/63; PULSE 88; RESP 16; TEMP 36.3; O2SAT 100
[2025-02-07 18:34] LABS: Lipase 31 U/L (8-78)
--- NOTE | 2025-02-07 18:46 | PC.NURSE ---
Paktient presents to ED c/o ABD pain rated 10/10 with n/v Patient believes she ate some spoiled food 'Vomit clear and thin IV 20G placed in LAC currently running 2L NS Patient medicated per MAR Patient requested something for pain Provider ordered toradol, administered toradol. Effectiveness pending
--- OUTSIDE RECORDS SUMMARY | 2025-02-07 19:00 | XMS_ITS | Encounter Summary ---
Author Organization [employer] Address [address] [place] [address] Care Team Providers Care Rendering Equipment Tender Name Role Phone Mario Peggy COOK Primary Care Provider [phone] Encounter Details Date Type Department Care Team (Latest Contact Info) Description 02/06/2025 Travel Social History Tobacco Use Types Packs/Day Years [...] AM EDT documented as of this encounter Functional Status * Over the past 2 weeks, how often have you been bothered by any of the following problems? Question Answer Date of Assessment Author Patient Health Questionnaire -2 Score 0 02/06/2025 2:13 PM Jessica Zaldivar MA * Little interest or pleasure in doing things Answer Date of Assessment Author Not at all 02/06/2025 2:13 PM Jessica Zaldivar MA * Feeling down, depressed, or hopeless Answer Date of Assessment Author Not at all 02/06/2025 2:13 PM Jessica Zaldivar MA * Trouble falling or staying asleep, [...] on edge 3 02/06/2025 2:13 PM Jessica Zaldivar MA Not being able to stop or co ntrol worrying 3 02/06/2025 2:13 PM Jessica Zaldivar MA Worrying too much about diff erent things 3 02/06/2025 2:13 PM Jessica Zaldivar MA Trouble relaxing 3 02/06/2025 2:13 PM EST Jessica Hicks MA Being so restless that it is [...] documented as of this encounter Care Teams Rendering Equipment Tender Relationship Specialty Start Date End Date Peggy Martin DO [address] [place] [address], [place] [address] PCP - General Pediatrics 03/28/18 Syl Muniz Cotton Stripper 02/13/24 documented as of this encounter
--- OUTSIDE RECORDS SUMMARY | 2025-02-07 19:00 | XMS_ITS | Encounter Summary ---
Author Organization [employer] Address [address] [address] [facility] 7[address] [place] [address] Care Team Providers Care Inspector Chief Name Role Phone Peggy Martin DO Primary Care Provider [phone] Reason for Visit * Reason Onset Date Comments Care Management 02/04/2025 C3CM appointment reminder Encounter Details Date Type Department Care Team ([facility] st Contact Info) Description 02/04/2025 Telephone [facility] MEDICINE [address] [place] [address] Peggy Martin DO [address] [place], [place] [id number] Care Management (C3CM appointment reminder) Social History Tobacco Use Types Packs/Day Years [...] AM EDT documented as of this encounter Miscellaneous Notes * Telephone Encounter - Syl Lucero - 02/04/2025 2:10 PM EST CM Syl Lucero RN placed outbound call to patient. Patient's name, and address confirmed. Patient states is doing well with no recent illnesses or emergency room visits. Appointment reminder for transfer patient appointment with Dr. Hagan 02/06/25 2pm, patient denies any barriers to attending the appointment and states has transportation. No further questions or concerns. CM reinforced direct contact information or CHW for any additional questions or concerns. Education provided on Walk-In Urgent Care located in [facility] of [facility]. Patient provided with after-hours line for [facility], , which offer night time triage service and option to transfer to ceiling insulation blower provider if needed. Patient verbalizes understanding, and able to repeat back to senior underwriter. A follow up call will be placed within 1 month, patientagrees with plan. documented in this encounter Plan of Treatment Not on file documented as of this encounter Visit Diagnoses Not on filedocumented in this encounter Additional Health Concerns Assessment Noted Time PHQ-9 Depression Total Score: 12 09/24/ 025 4:48 PM EDT documented as of this encounter Care Teams Inspector Chief Relationship Specialty Start Date End Date Peggy Martin DO [address] [place] [address] PCP - General Pediatrics 03/28/18 Syl Muniz Insurance Agent 02/13/24 documented as of this encounter
--- OUTSIDE RECORDS SUMMARY | 2025-02-07 19:00 | XMS_ITS | Encounter Summary ---
Author Organization [email or web address] Address [address] 7[address] [place] [address] Care Team Providers Care Substance Abuse Clinician Name Role Phone Peggy Martin DO Primary Care Provider [phone] Encounter Details Date Type Department Care Team ([facility] st Contact Info) Description 01/18/2025 Results Follow-Up [facility] MEDICINE [address] [place], [place] [phone] Andressa Capps CNM [address] [place] [address] Bacterial Vaginosis Panel Social History Tobacco Use Types Packs/Day Years [...] Noted Time PHQ-9 Depression Total Score: 12 025 4:48 PM EDT documented as of this encounter Care Teams Substance Abuse Clinician Relationship Specialty Start Date End Date Peggy Martin DO [address] [place] [address] PCP - General Pediatrics 03/28/18 Syl Muniz Calculation Reviewer 02/13/24 documented as of this encounter
--- OUTSIDE RECORDS SUMMARY | 2025-02-07 19:00 | XMS_ITS | Clinical Summary ---
Author Organization [facility] Address [address] [address] Phone Care Team Providers Care Photo Tube Assembler Name Role Phone Peggy Martin DO Primary Care Provider [phone] Allergies No known active allergies Medications famotidine (PEPCID) 20 MG tablet Take 1 tablet (20 mg total) by mouth 2 (two) times a day as needed for heartburn. 60 tablet 2 03/02/20 24 Active Additional Information Patient not taking.Reported on 02/01/2025 fluocinolone (DERMA-SMOOTHE/FS SCALP) 0.01 % Oil scalp [...] comments) (cramping). 60 tablet 06/07/19 25 Active Additional Information Patient not taking.Reported on 02/01/2025 acetaminophen (TYLENOL) 325 mg tablet Take 2 tablets (650 mg total) by mouth every 6 (six) hours as needed for pain (specific location in comments) (perineal pain). 30 tablet 1 06/07/19 25 Active Additional Information Patient not taking.Reported on 02/01/2025 docusate sodium (COLACE) 100 MG capsule Take 1 capsule (100 mg total) by mouth 2 (two) times a day. 10 capsule 06/07/19 Active Additional Information Patient not taking.Reported on 02/01/2025 hydrOXYzine (ATARAX) 25 MG tablet Take 1 tab po BID prn anxiety 08/23/19 Active ondansetron (ZOFRAN-ODT) 4 MG disintegrating tablet Take 1 tablet (4 mg total) by mouth every 8 (eight) hours as needed for nausea. 9 tablet 09/07/19 Active Additional Information Patient not taking.Reported on 02/01/2025 atomoxetine (STRATTERA) 25 MG capsule Take 25 mg by mouth. 08/23/19 Active lidocaine (UROJET) 2 % JelP jelly Apply topically. 09/04/19 Active tacrolimus (PROTOPIC) 0.1 % ointment Apply topically to affected areas as directed prn 08/23/19 Active ARIPiprazole (ABILIFY) 2 MG tablet TAKE 1 TABLET BY MOUTH AT BEDTIME DIRECTED 11/06/19 Active capsaicin (ZOSTRIX) 0.025 % cream APPLY TOPICALLY FOUR TIMES DAILY FOR ABDOMINAL PAIN DO NOT WASH AREA FOR AT LEAST 30 MINUTES AFTER 01/15/20 Active fluconazole (DIFLUCAN) 150 MG tablet 01/22/20 Active PHEXXI 1.8-1-0.4 % Gel 01/19/[address] tablet Take 1 tablet by mouth every morning. 01/18/20 Active LORazepam (ATIVAN) 1 MG tablet Take 1 mg by mouth nightly at bedtime as needed. 01/15/20 Active metroNIDAZOLE (METROGEL) 0.75 % (37.5mg/5 gram) vaginal gel INSERT 1 APPLICATORFUL VAGINALLY 2 TIMES A WEEK FOR 12 WEEKS. START AFTER FINISHING BY MOUTH METRONIDAZOLE 01/22/20 Active metroNIDAZOLE (FLAGYL) 500 MG tablet 01/22/20 Active mirtazapine (REMERON) 7.5 MG tablet 01/26/20 Active prochlorperazine (COMPAZINE) 25 MG suppository UNWRAP AND INSERT 1 SUPPOSITORY RECTALLY TWICE DAILY NEEDED FOR NAUSEA OR VOMITING 01/16/20 Active sucralfate (CARAFATE) 1 gram tablet take 1 tablet by mouth every 6 hours for 7 days 01/14/20 Active TAYLOR 30 mg Tab TAKE 1 TABLET SOON POSSIBLE WITHIN 5 DAYS AFTER UNPROTECTED SEX OR IF YOU HAD A CONTROL FAILURE. MAY BE TAKEN WITH OR WITHOUT FOOD. 01/22/20 Active econazole nitrate 1 % cream Apply topically to affected areas BID as directed 01/26/20 Active miconazole (MONISTAT 7) [address] 1 suppository (100 mg total) vaginally nightly at bedtime. 7 suppository 02/02/20 Active triamcinolone acetonide 0.025 % cream Apply topically 2 (two) times a day. 60 g 02/02/20 Active Active Problems Problem Noted Date Diagnosed [...] well. Would like membrane sweep today. SVE //-2 soft, posterior. Membranes swept. Discussed risks and [...] the last time she ate was yesterday evening--ID Quantique, then she woke at 2am with vomiting. Pt denies diarrhea, fever, urinary sx. PT tried to take zofran and pepcid today but could not tolerate. Pt has been seen at [facility] for this complaint before. Encounters Date Type Department Care Team Description 02/01/2025 8:50 AM EST Office Visit [facility] [address] [address] Pardeep Sarmiento PA-C Greenspan, Bryna, PA-C Dermatitis, unspecified (Primary Dx); Acute vaginitis from Last 3 Months Immunizations Immunization Administration [...] Mass Index 17.76 02/01/2025 8:28 AM EST Plan of Treatment Health Maintenance Due Date Last Done Comments DEVELOPMENTAL/BEHAVIORAL SCREENING (PHQ, PSC, or SWYC) 2008 DEPRESSION SCREENING 2017 HPV VACCINES (1 - 3-dose series) 2020 MENINGOCOCCAL VACCINES (B) (1 of 2 - Standard) 2021 ADOLESCENT UNIVERSAL LIPID SCREENING 2022 CHLAMYDIA SCREENING 10/04/2024 10/05/2023 INFLUENZA VACCINE (#1) 2024 , 02/22/2022, 06/17/2021, Additional history exists COVID-19 VACCINE ( season) 2024 02/11/2022, 04/22/2021, 08/31/2020, Additional history exists BMI ASSESSMENT 02/01/2026 02/01/2025 SMOKING Hx and SMOKELESS TOBACCO SCREENING 02/01/2026 02/01/2025 COMBINED DTaP,Tdap,Td (8 - Td or Tdap) 03/27/2034 03/27/2024, 09/17/2016, 06/09/2009, Additional history exists HEPATITIS B VACCINES Completed 2005, 2005, 2005 HEPATITIS A VACCINES Completed 11/15/2006, 05/10/19 07 HIB VACCINES Completed 11/15/2006, 10/26, 2005, Additional history exists PNEUMOCOCCAL VACCINES (0-49 years) Completed 11/15/2006, 2005, 2005, Additional history exists IPV VACCINES Completed 06/09/2009, 10/26, 2005, Additional history exists MMR VACCINES Completed 06/09/2009, 05/10/2006 VARICELLA VACCINES Completed 06/09/2009, 05/10/2006 MENINGOCOCCAL VACCINES (ACWY) Aged Out 09/08/2016 No longer eligible based on patient's age to complete this topic HEPATITIS C SCREENING Completed 11/07/2023, 024 HIV ONE-TIME SCREENING (18-65 YEARS) Completed 11/07/2023 Medical Devices Not on file Procedures Procedure Name Priority Date/Time Associated Diagnosis Comments HEPATITIS C ANTIBODY, QUALITATIVE Routine 11/07/2023 3:20 PM EDT Need for hepatitis C screening test CHLAMYDIA TRACHOMATIS AND NEISSERIA GONORRHOEAE NUCLEIC ACID DETECTION Routine 10/05/2023 11:18 AM EDT Early stage of from Last 3 Months or Most Recently Relevant to Health Maintenance Results * Hepatitis C antibody, qualitative (11/07/2023 3:20 PM EDT) HCV NON-REACTIV E NON-REACTI VE [facility] Blood 11/07/2023 3:20 PM EDT 11/07/2023 3:30 PM EDT Cristy Garcia [facility] BLOOD BKR ORDERABL ES Final Result Performing Organization Address City/[facility]/ZIP Co de Phone Number [address] [address] * Chlamydia Trachomatis and Neisseria Gonorrhoeae Nucleic Acid Detection (10/05/2023 11:18 AM EDT) Pathologist [facility] CHLAMYDIA TRACHOMATIS Not Detected Not Detected [facility] NEISERIA GONORRHOEAE Not Detected Not Detected [facility] SPECIMEN TYPE URINE [facility] Urine (Urine) 10/05/2023 11: 18 AM EDT 10/05/2023 3:25 PM EDT Cristy Garcia [facility] GENERAL ORDERABLES Final Result [address] [address] from Last 3 Months or Most Recently Relevant to Health Maintenance Insurance [facility] C3 ACO [facility] [address] [place] [address] [place] [address] C3 ACO [facility] [place] [place] [address] [facility] [place] [place] [address] [address] [place] [address] [facility] C3 ACO Advance Directives For more information, please contact: [phone] (9AM - 5PM [facility], Tuesday-Tuesday) * Full Code (Latest Code Status [...] Code Status Confirmed With: Patient Care Teams Photo Tube Assembler Relationship Specialty Start Date End Date Peggy Martin DO [address] [place] [address] PCP - General Pediatrics 05/16/23 Additional Source Comments The information contained in this document represents components of the legal health record. It is not the complete legal health record.[facility]
--- OUTSIDE RECORDS SUMMARY | 2025-02-07 19:00 | XMS_ITS | Encounter Summary ---
Author Organization [employer] Address [address] [facility] 7t [place] [address] Care Team Providers Care Senior Paralegal Name Role Phone Peggy Martin DO Primary Care Provider [phone] Syl Lucero Unavailable [phone] Encounter Details Date Type Department Care Team ([facility] st Contact Info) Description 01/26/2024 Orders Only [facility] MEDICINE [address] [place] [address] Andressa Capps CNM [address] [place] [address] Social History Tobacco Use Types Packs/Day Years [...] documented as of this encounter Care Teams Senior Paralegal Relationship Specialty Start Date End Date Peggy Martin DO [address] [place] [address] PCP - General Pediatrics 03/28/18 Syl Lucero Registered Nurse 01/14/25 01/14/25 Syl Muniz Food Service Counter Clerk 02/13/24 documented as of this encounter
--- OUTSIDE RECORDS SUMMARY | 2025-02-07 19:00 | XMS_ITS | Encounter Summary ---
Author Organization [employer] Address [address] [place] [address] Care Team Providers Care [employer] Name Role Phone Peggy Martin DO Primary Care Provider [phone] Encounter Details Date Type Department Care Team (Late st Contact Info) Description 02/07/2025 Orders Only GENERIC EXTERNAL DATA DEPARTMENT Provider, [...] the past 12 months, has t he [email or web address], gas, [employer] threatened to shut off services in your [...] on file documented as of this encounter Procedures Procedure Name Priority Date/Time Associated Diagnosis Comments CBC WITH AUTO DIFFERENTIAL Routine 02/07/2025 1:58 PM EST HCG, TOTAL, QN Routine 02/07/2025 1:58 PM EST MAGNESIUM Routine 02/07/2025 1:58 PM EST LIPASE Routine 02/07/2025 1:58 PM EST COMPREHENSIVE METABOLIC PANEL Routine 02/07/2025 1:58 PM EST documented in this encounter Results * hCG, Total, Quantitative (02/07/2025 1:58 PM EST) HCG Quantitative <2 mIU/mL [facility] Comment:Weeks post LMP Appr oximate hCG(Last Menstrual Period) Range (mIU/ml)3 - 4 weeks 9 - 1304 - 5 weeks 75 - 2,6005 - 6 weeks 850 - 20,8006 - 7 weeks 4000 - 100,2007 - 12 weeks 11,500 - 289,12854 - 16 weeks 18,300 - 137,88658 - 29 weeks (2nd trimester) 1,400 - 53,85332 - 41 weeks (3rd trimester) 940 - 60,000The [place] B-hCG assay is used for the early detection ofpregnancy; it cannot be used to diagnose any conditionunrelated to . If a B-hCG level is not supportedby the clinical evidence, results should be confirmed by analternative method (qualitative urine hCG, for example). 02/07/2025 1:58 PM EST 02/07/2025 2:07 PM EST Generic External Data Provider LAB BLOOD ORDERAB LES Final Result Performing Organization Address [facility] Co de Phone Number [facility] [address] [place] [address] [phone] * Lipase (02/07/2025 1:58 PM EST) Pathologist [facility] Lipase 56 8 - 78 U/L [facility] 02/07/2025 1:58 PM EST 02/07/2025 2:07 PM EST us Generic External Data Provider LAB BLOOD ORDERAB LES Final Result Performing Organization Address [facility] Co de Phone Number [facility] [address] [place] [phone] * Magnesium (02/07/2025 1:58 PM EST) Pathologist [facility] Magnesium 1.7 1.6 - 2.6 mg/dL [facility] 02/07/2025 1:5 8 PM EST 02/07/2025 2:07 PM EST Generic External Data Provider LAB BLOOD ORDERAB LES Final Result Performing Organization Address [facility] de Phone Number [facility] [address] [place] [phone] * (ABNORMAL) Comprehensive Metabolic Panel (02/07/2025 1:58 PM EST) Pathologist [facility] Sodium 141 135 - 145 mmol/L [facility] Potassium 3.3 3.3 - 5.1 mmol/L [facility] Chloride 108 96 - 108 mmol/L [facility] Carbon Dioxide 18(L) 22 - 29 mmol/L [facility] Anion Gap 18 12 - 20 [facility] Urea Nitrogen (BUN) 14 9 - 16 mg/dL [facility] Creatinine, Serum 0.66 0.5 - 1.4 mg/dL [facility] Creatinine Clr Calc Pharmacy 94.2 [facility] Comment:Provided height and weight: 154.94 cm,43.545 kg.eGFR (calculated from the MDRD study equation) and eCrCl(calculated from the Cockcroft-Gault equation) are based ondifferent parameters and may not yield comparable results.If eCrCl result is absurd, please check patient'sheight/weight. Estimated Glomerular Filt Rate >60 [facility] Comment:Chronic Kidney Disea se: Estimated GFR < 60 mL/min/1.10s2Xferqy Kidney Disease: Estimated GFR < 15 mL/min/1.73m2 Glucose 125(H) 60 - 115 mg/dL [facility] Calcium 9.9 8.4 - 10.2 mg/dL [facility] Bilirubin, Total 1.0 0.0 - 1.0 mg/dL [facility] Aspartate Amino Transferase 23 5 - 31 U/L [facility] Alanine Aminotransferase 10 0 - 31 U/L [facility] Total Protein 7.8 6.5 - 8.0 g/dL [facility] Albumin Level 5.1(H) 3.5 - 5.0 g/dL [facility] Alkaline Phosphatase 77 39 - 117 U/L [facility] 02/07/2025 1:58 PM EST 02/07/2025 2:07 PM EST us Generic External Data Provider LAB BLOOD ORDERAB LES Final Result [facility] [address] [place] [phone] * (ABNORMAL) CBC auto differential (02/07/2025 1:58 PM EST) White Blood Count 11.4(H) 4.8 - 10.8 X10*3/uL [facility] Red Blood Count 5.17 4.20 - 5.50 X10*6/uL [facility] Hemoglobin 12.8 12.0 - 16.0 g/dl [facility] Hematocrit 37.6 37.0 - 47.0 % [facility] Mean Corpuscular Volume 72.7(L) 80.0 - 98.0 fL [facility] Mean Corpuscular Hemoglobin 24.8(L) 27.0 - 33.0 pg [facility] Mean Corpuscular HGB Conc 34.0 31.0 - 35.0 g/dl [facility] Red Cell Distribution Width 14.6 11.0 - 16.0 % [facility] Platelet Count 279 160 - 400 X10*3/uL [facility] Mean Platelet Volume 11.6 9.4 - 12.3 fL [facility] Neutrophils Percent Auto 87.8(H) 45 - 73 % [facility] Imm Gran Pct Auto 0.3 0.0 - 0.4 % [facility] Lymphocytes Percent Auto 8.1(L) 20 - 40 % [facility] Monocytes Percent Auto 3.3 2 - 11 % [facility] Eosinophils Percent Auto 0.0 0 - 4 % [facility] Basophils Percent Auto 0.5 0 - 2 % [facility] NRBC Pct Auto 0.0 0.0 - 0.2 /100WBC [facility] Neutrophils Absolute Auto 10.0(H) 2.0 - 8.3 x10*3/uL [facility] Imm Gran Abs Auto 0.03 0.00 - 0.03 X10*3/uL [facility] Lymphocytes Absolute Auto 0.9(L) 1.2 - 4.9 X10*3/uL [facility] Monocytes Absolute Auto 0.4 0.1 - 1.2 X10*3/uL [facility] Eosinophils Absolute Auto 0.0 0.0 - 0.4 X10*3/uL [facility] Basophils Absolute Auto 0.1 0.0 - 0.2 X10*3/uL [facility] NRBC Abs Auto 0.000 0.0 - 0.012 X10*3/uL [facility] 02/07/2025 1:58 PM EST 02/07/2025 2:07 PM EST us Generic External Data Provider LAB BLOOD ORDERAB LES Final Result [facility] [address] [place] [phone] documented in this encounter Visit Diagnoses Not on filedocumented in this encounter Additional Health Concerns Assessment Noted Time PHQ-9 Depression Total Score: 7 02/07/20 25 2:13 PM EST documented as of this encounter Care Teams [employer] Relationship Specialty Start Date End Date Peggy Martin DO [address] [place] [address] PCP - General Pediatrics 03/28/18 Syl Muniz Pallet[employer] 02/13/24 documented as of this encounter
--- OUTSIDE RECORDS SUMMARY | 2025-02-07 19:00 | XMS_ITS | Clinical Summary ---
Author Organization [employer] Address [address] [facility] [address] [place] [address] Care Team Providers Care Biodiesel Division Manager Name Role Phone Peggy Martin DO Primary Care Provider [phone] Allergies No known active allergies Medications * This document contains information received from the source organization and may not represent a complete record from that organization. famotidine (Pepcid) 20 MG tablet Take 20 mg by mouth if needed in the morning and at bedtime. 024 Active ketoconazole (NIZOral) 2 % shampooIndication s:Seborrheic dermatitis Use in AM after applying Kilmarnock-smoothe oil the night before 120 mL 2 024 2024 Active tacrolimus (Protopic) 0.1 % ointmentIndicatio ns:Atopic dermatitis of face Apply topically to affected areas as directed prn 30 g 3 025 Active Lactic Ac-Citric Ac-Pot Bitart (Phexxi) 1.8-1-0.4 % gel Insert 1 each into the vagina if needed (insert up to 1 hour prior to sex). 5 g 11 025 Active hydrOXYzine HCl (Atarax) 25 MG tabletIndications :Disruptive mood dysregulation disorder (CMS/HCC) Take 1 tab po BID prn anxiety 30 tablet 1 025 Active fluconazole (Diflucan) 150 MG tablet One tablet weekly. Start 1 week after last dose of fluconazole. Get bloodwork in 1-2 weeks. 4 tablet 025 Active econazole nitrate 1 % creamIndications: Rash Apply topically to affected areas BID as directed 30 g 1 Active prochlorperazine (Compazine) 25 MG suppository UNWRAP AND INSERT 1 SUPPOSITORY RECTALLY TWICE DAILY NEEDED FOR NAUSEA OR VOMITING Active triamcinolone (Kenalog) 0.025 % cream Apply topically 2 times daily. Active sucralfate (Carafate) 1 g tablet take 1 tablet by mouth every 6 hours for 7 days Active miconazole (Micotin) 2 % vaginal cream Insert 1 applicator into the vagina at bedtime for 7 days. 45 g 2024 Active Fluocinolone Acetonide Scalp (Kilmarnock-Smoothe/FS Scalp) 0.01 % oilIndications:Se borrheic dermatitis Apply before bed to a damp scalp. Wrap with head covering. Wash off in AM as directed. Use 3x /week for treatment and 1-2x/week for maintenance. 120 mL 3 Active 28-0.8 MG tablet Take 1 tablet by mouth Once per day. 90 tablet 3 2025 Active cyproheptadine (Periactin) 4 MG tablet Take 1 tablet (4 mg) by mouth if needed in the morning and at bedtime (appetite stimulation). 60 tablet 3 025 2025 Active FeroSul 325 (65 Fe) MG tablet Take 1 tablet (325 mg) by mouth with breakfast. 90 tablet 3 Active naloxone (Narcan) 4 mg/0.1 mL nasal spray FOR SUSPECTED OPIOID OVERDOSE. SPRAY 0.1mL IN ONE NOSTRIL. REPEAT IN ALTERNATE NOSTRIL 2-3 MINUTES IF NEEDED. SEEK MEDICAL ATTENTION IMMEDIATELY EVEN IF PATIENT RESPONDS. 023 2024 Discontinued(T herapy completed) ondansetron ODT (Zofran-ODT) 4 MG disintegrating tablet Take 4 mg by mouth every 8 (eight) hours if needed. 024 2024 Discontinued(T herapy completed) pyridoxine (B-6) 50 MG tablet Take 50 mg by mouth Once per day. 024 2024 Discontinued(T herapy completed) pantoprazole (ProtoNix) 40 MG EC tablet Take 40 mg by mouth Once per day. 024 2024 Discontinued(T herapy completed) Fluocinolone Acetonide Scalp (Kilmarnock-Smoothe/FS Scalp) 0.01 % oilIndications:Se borrheic dermatitis Apply before bed to a damp scalp. Wrap with head covering. Wash off in AM as directed. Use 3x /week for treatment and 1-2x/week for maintenance. 120 mL 3 024 2024 Discontinued(R eorder (will not trigger notification to Pharmacy)) atomoxetine (Strattera) 25 MG capsuleIndication s:Attention deficit hyperactivity disorder (ADHD), predominantly inattentive type Take 1 capsule (25 mg) by mouth Once per day. Swallow capsule whole; do not open. If opened accidentally, do not touch eyes; wash hands immediately (product is an eye irritant). 30 capsule 2024 Discontinued(T herapy completed) hydrOXYzine HCl (Atarax) 25 MG tabletIndications :Disruptive mood dysregulation disorder (CMS/HCC) Take 1 tab po BID prn anxiety 30 tablet 1 2024 Discontinued(R eorder (will not trigger notification to Pharmacy)) mirtazapine (Remeron) 7.5 MG tabletIndications :Disruptive mood dysregulation disorder (CMS/HCC) Take 1 tablet (7.5 mg) by mouth at bedtime. 30 tablet 2 2024 Discontinued(R eorder (will not trigger notification to Pharmacy)) levonorgestrel (Plan B) 1.5 MG tablet Take 1 tablet (1.5 mg) by mouth 1 (one) time for 1 dose. 1 tablet 11 2024 metroNIDAZOLE (Flagyl) 500 MG tablet Take 1 tablet (500 mg) by mouth 2 times daily for 7 days. 14 tablet 2024 fluconazole (Diflucan) 150 MG tablet Take 1 tablet (150 mg) by mouth 1 (one) time for 1 dose. 1 tablet 2024 metroNIDAZOLE (Metrogel) 0.75 % vaginal gel One applicatorful twice a week for 12 weeks. Start after finishing oral metronidazole 70 g 4 2024 Discontinued(T herapy completed) mirtazapine (Remeron) 7.5 MG tabletIndications :Disruptive mood dysregulation disorder (CMS/HCC) Take 1 tablet (7.5 mg) by mouth at bedtime. 30 tablet 2024 Discontinued(T herapy completed) cloNIDine (Catapres) 0.1 MG tablet Take 0.1 mg by mouth at bedtime. 2024 Discontinued(T herapy completed) hydrOXYzine pamoate (Vistaril) 25 MG capsule 2024 Discontinued(T herapy completed) FeroSul 325 (65 Fe) MG tablet Take 1 tablet by mouth with breakfast. 2024 Discontinued(R eorder (will not trigger notification to Pharmacy)) lidocaine (Lidoderm) 5 % patch 2024 Discontinued(T herapy completed) OLANZapine zydis (ZyPREXA) [address] 1 TABLET SUBLINGUALLY BY MOUTH EVERY DAY 2024 Discontinued(T herapy completed) mirtazapine (Remeron) 15 MG tablet Take 15 mg by mouth at bedtime. 2024 Discontinued(T herapy completed) Elvira 30 MG tablet TAKE 1 TABLET SOON POSSIBLE WITHIN 5 DAYS AFTER UNPROTECTED SEX OR IF YOU HAD A CONTROL FAILURE. MAY BE TAKEN WITH OR WITHOUT FOOD. 2024 Discontinued(T herapy completed) terconazole (Terazol 7) 0.4 % vaginal cream INSERT 1 APPLICATORFUL VAGINALLY EVERY NIGHT AT BEDTIME FOR 7 DAYS 2024 Discontinued(T herapy completed) nicotine polacrilex (Nicorette) 4 MG gum 4MG BUCCALLY EVERY 2 HOURS NEEDED NICOTINE CRAVINGS 2024 Discontinued(T herapy completed) nicotine (Nicoderm, Step 1) 21 MG/24HR patch 025 2024 Discontinued(T herapy completed) Hospital, Clinic, or Other Facility Administered Medication Ordered Dose Route Frequency Start Date End Date Status lidocaine 2 % gelIndications:Encoun ter for initial insertion of intrauterine contraceptive device TOP As needed 09/03/2024 02/06/2025 Disc ontinued Active Problems Patient Care Coordination No te Formatting of this note migh t be different from the original. C3/CM Mena Stoddard RN Problem Noted Date Diagnosed Date DEE (generalized anxiety disorder) 01/25/2025 Teen parent 08/24/2024 Iron deficiency anemia 02/11/2024 [...] TIBC Serum iron Folate B12 Reticulocyte count Maternal varicella, non-immune 11/10/2023 Cannabis abuse 06/07/2022 Disruptive mood dysregulation disorder Attention deficit hyperactivity disorder 021 Mild intermittent asthma 09/08/2016 Resolved Problems Problem Noted Date Diagnosed Date Resolved Date Normal intrauterine , antepartum 06/03/2024 08/24/2024 Encounter for elective induction of labor 06/03/2024 08/24/2024 Overview (08/24/2024): 06/03/24 1900 admit to CBC 1930 VE /-1 Cooks catheter placed and #1 miso 25mcg [...] organization. Date Type Department Care Team Description 02/07/2025 Orders Only GENERIC EXTERNAL DATA DEPARTMENT Provider, Generic External Data 02/06/2025 2:00 PM EST Office Visit [address] [address] Amanda Hagan MD Dietary counseling; Exercise counseling; Underweight; Mild intermittent asthma, unspecified whether complicated; Seborrheic dermatitis 02/06/2025 Travel 02/05/[address] [address] Peggy Martin DO Chart Prep 02/04/[address] [address] Peggy Martin DO Care Management (C3CM appointment reminder) 01/29/2025 Patient Outreach [address] [address] Peggy Martin DO Pre-visit Planning (SDOH screening was completed on 11/09/2024) 01/25/2025 11:00 AM EDT Office Visit [facility] [address] [place] [phone] Peggy Martin DO Disruptive mood dysregulation disorder (CMS/HCC) (Primary Dx); DEE (generalized anxiety disorder); Cannabis abuse; Rash 01/25/2025 Travel 01/24/2025 Telephone [facility] [address] [place] [phone] Peggy Martin DO CHART PREP 01/23/2025 Telephone [facility] [address] [facility] [place] [address] Peggy Martin DO Care Management (C3CM follow up call) 01/21/2025 Telephone [facility] [address] [facility] [place] [address] Peggy Martin DO Appointment Request 01/21/2025 Telephone [facility] [address] [facility] [place] [address] Peggy Martin DO Medication Question 01/21/2025 Orders Only [facility] [place] [address] Andressa Capps CNM On intermediate project manager drug therapy (Primary Dx) 01/18/2025 Telephone [facility] [address] [place] [address] [place] [address] Peggy Martin DO Med Refill 01/18/2025 Results Follow-Up [facility] [address] [facility] [place] [address] Andressa Capps CNM Bacterial Vaginosis Panel 01/17/2025 1:15 PM EDT Procedure Visit [facility] [facility] [place] [address] Andressa Capps CNM Vaginal discharge (Primary Dx); Encounter for IUD removal 01/17/2025 Telephone [facility] [address] [place] [address] Peggy Martin DO CHART PREP 01/17/2025 Travel 01/16/2025 Telephone [facility] [address] [place] [address] Nakita Fierro MA 01/14/[address] [address] Peggy Martin DO Nurse Triage 01/14/2025 Patient Outreach [address] [address] Peggy Martin DO 01/14/2025 Patient Outreach [address] [address] Peggy Martin DO 01/14/2025 Orders Only GENERIC EXTERNAL DATA DEPARTMENT Provider, Generic External Data 01/13/2025 Orders Only GENERIC EXTERNAL DATA DEPARTMENT Provider, Generic External Data 01/01/[address] [address] Peggy Martin DO Care Management (C3CM follow up call) 11/29/[address] [address] Peggy Martin DO Care Management (C3CM follow up call) 11/29/2024 Travel 11/16/[address] [address] Peggy Martin DO No Show (PT no show to 19 yr pe. Transfer patient to adult team. Message forward to Antonia. Per Mario Transfer to [place] If possible. ) 11/15/2024 Telephone [facility] [address] [place] [phone] Peggy Martin DO CHART PREP 11/09/2024 Patient Outreach [address] [phone] Peggy Martin DO Pre-visit Planning (SDOH screening is negative and Tobacco screening is positive) from Last 3 Months Immunizations Immunization Administration [...] Date Recorded No desire to become (finding) 1 Sex and Gender Information Value Date Recorded [...] 21 02/06/2025 2:12 PM EST Oxygen Saturation 98% 01/17/2025 1:37 PM EDT Inhaled Oxygen Concentration - - Weight 44.5 kg (98 lb) 02/06/2025 2:12 PM EST Height 154.9 cm (5' 1 ) 02/06/2025 2:12 PM EST Body Mass Index 18.52 02/06/2025 2:12 PM EST Plan of Treatment Health Maintenance Due Date Last Done Comments HIV Screening 2005 Fluoride Varnish 01/03/2006 Pneumococcal Vaccine: Pediatrics (0 to 5 Years) and At-Risk Patients (6 to 49) Years (1 of 1 - PPSV23, PCV20, or PCV21) 2011 11/15/2006, 2005, 2005, Additional history exists HPV Vaccines (1 - 3-dose series) 2020 Meningococcal B Vaccine (1 of 2 - Standard) 2021 Hepatitis C Screening 2023 COVID-19 Vaccine ( season) 2024 02/11/2022, 04/22/2021, 08/31/2020, Additional history exists Influenza Vaccine (#1) 2024 , 02/22/2022, 06/17/2021, Additional history exists Disability Screening 08/22/2025 08/22/2024 Alcohol/Substance Use Screening 11/06/2025 11/06/2024 Chlamydia and Gonorrhea Screening 11/06/2025 11/06/2024, 05/10/2024, 10/05/2023, Additional history exists SDOH Screening 11/09/2025 11/09/2024 Family Planning (PISQ) 01/17/2026 01/17/2025 Depression Screening 02/06/2026 02/06/2025, 08/15/19 25 Tobacco Screening 02/06/2026 02/06/2025 DTaP/Tdap/Td Vaccines (8 - Td or Tdap) [...] Procedure Name Priority Date/Time Associated Diagnosis Comments HCG, TOTAL, QN Routine 02/07/2025 1:58 PM EST LIPASE Routine 02/07/2025 1:58 PM EST MAGNESIUM Routine 02/07/2025 1:58 PM EST COMPREHENSIVE METABOLIC PANEL Routine 02/07/2025 1:58 PM EST CBC WITH AUTO DIFFERENTIAL Routine 02/07/2025 1:58 PM EST BACTERIAL VAGINOSIS PANEL Routine 01/17/2025 2:00 PM EDT Vaginal discharge POCT HEMOGLOBIN Routine 01/17/2025 1:41 PM EDT Encounter for IUD removal MO REMOVAL INTRAUTERINE DEVICE IUD Routine 01/17/2025 1:15 PM EDT Encounter for IUD removal US ABDOMEN LIMITED Routine 01/14/2025 9: 07 AM EDT HCG, TOTAL, QN Routine 01/14/2025 8:24 AM EDT LIPASE Routine 01/14/2025 8:24 AM EDT MAGNESIUM Routine 01/14/2025 8:24 AM EDT BASIC METABOLIC PANEL Routine 01/14/2025 8:24 AM EDT HEPATIC FUNCTION PANEL Routine 8:24 AM EDT CBC WITH AUTO DIFFERENTIAL Routine 01/14/2025 8:24 AM EDT COVID-19 ID NOW (Compiere) Routine 01/13/2025 10:26 PM EDT INFLUENZA A B2 ID NOW (GONZALEZ) Routine 01/13/2025 10:26 PM EDT CHLAMYDIA/N. GONORRHOEAE RNA, TMA, UROGENITAL Routine 11/06/2024 11:10 AM EDT Screening examination for venereal disease from Last 3 Months or Most Recently Relevant to Health Maintenance Results * (ABNORMAL) CBC auto differential (02/07/2025 1:58 PM EST) Only the most recent of2 resultswithin the time period is included. White Blood Count 11.4(H) 4.8 - 10.8 X10*3/uL [facility] Red Blood Count 5.17 4.20 - 5.50 X10*6/uL [facility] Hemoglobin 12.8 12.0 - 16.0 g/dl [facility] Hematocrit 37.6 37.0 - 47.0 % [facility] Mean Corpuscular Volume 72.7(L) 80.0 - 98.0 fL [facility] Mean Corpuscular Hemoglobin 24.8(L) 27.0 - 33.0 pg [facility] Mean Corpuscular HGB Conc 34.0 31.0 - 35.0 g/dl [facility] Red Cell Distribution Width 14.6 11.0 - 16.0 % [facility] Platelet Count 279 160 - 400 X10*3/uL [facility] Mean Platelet Volume 11.6 9.4 - 12.3 fL [facility] Neutrophils Percent Auto 87.8(H) 45 - 73 % [facility] Imm Gran Pct Auto 0.3 0.0 - 0.4 % [facility] Lymphocytes Percent Auto 8.1(L) 20 - 40 % [facility] Monocytes Percent Auto 3.3 2 - 11 % [facility] Eosinophils Percent Auto 0.0 0 - 4 % [facility] Basophils Percent Auto 0.5 0 - 2 % [facility] NRBC Pct Auto 0.0 0.0 - 0.2 /100WBC [facility] Neutrophils Absolute Auto 10.0(H) 2.0 - 8.3 x10*3/uL [facility] Imm Gran Abs Auto 0.03 0.00 - 0.03 X10*3/uL [facility] Lymphocytes Absolute Auto 0.9(L) 1.2 - 4.9 X10*3/uL [facility] Monocytes Absolute Auto 0.4 0.1 - 1.2 X10*3/uL [facility] Eosinophils Absolute Auto 0.0 0.0 - 0.4 X10*3/uL [facility] Basophils Absolute Auto 0.1 0.0 - 0.2 X10*3/uL [facility] NRBC Abs Auto 0.000 0.0 - 0.012 X10*3/uL [facility] 02/07/2025 1:58 PM EST 02/07/2025 2:07 PM EST us Generic External Data Provider LAB BLOOD ORDERAB LES Final Result Performing Organization Address [facility] de Phone Number [facility] [address] [place] [phone] * hCG, Total, Quantitative (02/07/2025 1:58 PM EST) Only the most recent of2 resultswithin the time period is included. HCG Quantitative <2 mIU/mL [facility] Comment:Weeks post LMP Appro ximate hCG(Last Menstrual Period) Range (mIU/ml)3 - 4 weeks 9 - 1304 - 5 weeks 75 - 2,6005 - 6 weeks 850 - 20,8006 - 7 weeks 4000 - 100,2007 - 12 weeks 11,500 - 289,90044 - 16 weeks 18,300 - 137,80456 - 29 weeks (2nd trimester) 1,400 - 53,70695 - 41 weeks (3rd trimester) 940 - 60,000The Gonzalez B- hCG assay is used for the early detection ofpregnancy; it cannot be used to diagnose any conditionunrelated to . If a B-hCG level is not supportedby the clinical evidence, results should be confirmed by analternative method (qualitative urine hCG, for example). 02/07/2025 1:58 PM EST 02/07/2025 2:07 PM EST Generic External Data Provider LAB BLOOD ORDERAB LES Final Result Performing Organization Address [facility] de Phone Number [facility] [address] [place] [phone] * Magnesium (02/07/2025 1:58 PM EST) Only the most recent of2 resultswithin the time period is included. Magnesium 1.7 1.6 - 2.6 mg/dL [facility] 02/07/2025 1:58 PM EST 02/07/2025 2:07 PM EST Generic External Data Provider LAB BLOOD ORDERAB LES Final Result [facility] [address] [place] [phone] * Lipase (02/07/2025 1:58 PM EST) Only the most recent of2 resultswithin the time period is included. Lipase 56 8 - 78 U/L [facility] 02/07/2025 1:58 PM EST 02/07/2025 2:07 PM EST us Generic External Data Provider LAB BLOOD ORDERAB LES Final Result [facility] [address] [place] [phone] * (ABNORMAL) Comprehensive Metabolic Panel (02/07/2025 1:58 PM EST) Sodium 141 135 - 145 mmol/L [facility] Potassium 3.3 3.3 - 5.1 mmol/L [facility] Chloride 108 96 - 108 mmol/L [facility] Carbon Dioxide 18(L) 22 - 29 mmol/L [facility] Anion Gap 18 12 - 20 [facility] Urea Nitrogen (BUN) 14 9 - 16 mg/dL [facility] Creatinine, Serum 0.66 0.5 - 1.4 mg/dL [facility] Creatinine Clr Calc Pharmacy 94.2 [facility] Comment:Provided height and weight: 154.94 cm,43.545 kg.eGFR (calculated from the MDRD study equation) and eCrCl(calculated from the Cockcroft-Gault equation) are based ondifferent parameters and may not yield comparable results.If eCrCl result is absurd, please check patient'sheight/weight. Estimated Glomerular Filt Rate >60 [facility] Comment:Chronic Kidney Disea se: Estimated GFR < 60 mL/min/1.30b2[place]x Kidney Disease: Estimated GFR < 15 mL/min/1.73m2 Glucose 125(H) 60 - 115 mg/dL [facility] Calcium 9.9 8.4 - 10.2 mg/dL [facility] Bilirubin, Total 1.0 0.0 - 1.0 mg/dL [facility] Aspartate Amino Transferase 23 5 - 31 U/L [facility] Alanine Aminotransferase 10 0 - 31 U/L [facility] Total Protein 7.8 6.5 - 8.0 g/dL [facility] Albumin Level 5.1(H) 3.5 - 5.0 g/dL [facility] Alkaline Phosphatase 77 39 - 117 U/L [facility] 02/07/2025 1:58 PM EST 02/07/2025 2:07 PM EST us Generic External Data Provider LAB BLOOD ORDERAB LES Final Result [facility] [address] [place] [phone] * (ABNORMAL) Bacterial Vaginosis Panel (01/17/2025 2:00 PM EDT) TRICHOMONAS VAGINALIS DETECTION BY PCR NOT DETECTED Not Detect [facility] BACTERIAL VAGINOSIS DETECTION BY PCR POSITIVE(A) Negative [facility] Comment:The BV organism targ ets of the Xpert Xpress MVP test can becommensal in women; Xpert Xpress MVP positive results forbacterial vaginosis should be considered in conjunction withother clinical and patient information to determine thedisease status. Organisms that are not detected by the XpertXpress MVP test have also been reported to be associatedwith BV and aerobic vaginitis.The Xpert Xpress MVP test performance has not been evaluatedin patients under the age of 14. ANJELICA GROUP DETECTION BY PCR DETECTED(A) Not Detect [facility] Anjelica glab krusei PCR NOT DETECTED Not Detect [facility] Swab Vaginal structure / Unknown 01/17/2025 2:00 PM EDT 01/17/2025 6:25 PM EDT us Andressa Capps CNM LAB MICROBIOLOGY - GENERA L ORDERABLES Final Result [facility] [address] [place] [address] [phone] * POCT hemoglobin docked device (01/17/2025 1:41 PM EDT) Hemoglobin 12.8 12.0 - 15.0 QC Media Lot # [id number] Lot# Expiration Date ,700,488 Blood 01/17/2025 1:41 PM EDT Andressa Capps CNM POINT OF CARE TEST ENTER/ EDIT ORDERABLES Final Result * MO REMOVAL INTRAUTERINE DEVICE IUD (01/17/2025 1:15 PM EDT) Narrative Andressa Capps CNM - 01/17/2025 1:15 PM EDT Andressa Capps CNM 01/17/2025 2:26 PM IUD Management Performed by: Andressa Capps CNM Authorized by: Andressa Capps CNM Procedure: IUD removal Consent obtained by patient, parent, or legal power of admitted attorneys - including discussion of procedure risks and benefits, patient questions answered, and patient education provided: yes Reason for removal: patient request Strings visualized: yes IUD grasped by forceps: yes IUD removed: yes Date/Time of Removal: 01/17/2025 1:30 PM Andressa Capps CNM IN CLINIC/BEDSIDE ORDERAB LES Final Result * US Abdomen Limited (01/14/2025 9:07 AM EDT) Anatomical Region Laterality Modality Abdomen Ultrasound 01/14/2025 9:07 AM EDT Narrative 01/14/2025 9:30 AM EDT [address] [address] Ultrasound Report Signed Patient: Eloisa Treviño MR#: [id number] 137 : 2005 Acct:[id number] Age/Sex: 19 / F ADM Date: 01/14/25 Loc: HO.ED Attending Dr: Ordering Physician: Rosalia Ayers DO Date of Service: 01/14/25 Procedure(s): US abdomen limited Accession Number(s): [id number] cc: Roslaia Ayers DO; Peggy Martin DO Reason for Exam: RUQ pain - GB and CBD only EXAMINATION: US ABDOMEN LIMITED HISTORY: RUQ pain - GB and CBD only TECHNIQUE: Real-time grayscale ultrasound imaging of the gallbladder was performed and images were reviewed. COMPARISON: Comparison is made with the prior examination dated 04/27/2023. FINDINGS: The gallbladder is unremarkable, without evidence of calculi, wall thickening, or pericholecystic fluid. There is no sonographic Rosado sign. The common bile duct is normal in caliber measuring 2 mm. US/US abdomen limited IMPRESSION: Unremarkable ultrasound of the gallbladder. Electronically signed by: Iván Angel MD 01/14/2025 09:28 AM EDT RP Dictated By: Iván Angel MD Signed By: <Electronically signed by Iván Angel MD in OV> 01/14/25927 DD/ 6 TD/TT: 01/14/25919 Copy Preparer: Procedure Note Donotuseinterpreter, Image - 01/14/2025 [place] [address] Ultrasound Report Signed Patient: Eloisa Treviño MMR#: [id number] 137 : 2005cct:[id number] Age/Sex: 19 / FADM Date: 01/14/25 Loc: HO.ED Attending Dr: Ordering Physician: Rosalia Ayers DO Date of Service: 01/14/25 Procedure(s): US abdomen limited Accession Number(s): [id number] cc: Rosalia Ayers DO; Peggy Martin DO Reason for Exam: RUQ pain - GB and CBD only EXAMINATION: US ABDOMEN LIMITED HISTORY: RUQ pain - GB and CBD only TECHNIQUE: Real-time grayscale ultrasound imaging of the gallbladder was performed and images were reviewed. COMPARISON: Comparison is made with the prior examination dated 04/27/2023. FINDINGS: The gallbladder is unremarkable, without evidence of calculi, wall thickening, or pericholecystic fluid. There is no sonographic Rosado sign. The common bile duct is normal in caliber measuring 2 mm. US/US abdomen limited IMPRESSION: Unremarkable ultrasound of the gallbladder. Electronically signed by: Iván Angel MD 01/14/2025 09:28 AM EDT RP Dictated By: Iván Angel MD Signed By: <Electronically signed by Iván Angel MD in OV> 01/14/25927 DD/ 6 TD/TT: 01/14/25919 Copy Preparer: us [facility] External Provider IMG US PROCEDURES Edited Result - Final * (ABNORMAL) Hepatic Function Panel (01/14/2025 8:24 AM EDT) Bilirubin, Total 1.6(H) 0.0 - 1.0 mg/dL [facility] Comment:Slight Icterus. Bilirubin, Direct 0.4 0.0 - 0.5 mg/dL [facility] Comment:Slight Icterus. Aspartate Amino Transferase 27 5 - 31 U/L [facility] Alanine Aminotransferase 38(H) 0 - 31 U/L [facility] Total Protein 6.8 6.5 - 8.0 g/dL [facility] Albumin Level 4.6 3.5 - 5.0 g/dL [facility] Alkaline Phosphatase 70 39 - 117 U/L [facility] 01/14/2025 8:24 AM EDT 01/14/2025 8:28 AM EDT us Generic External Data Provider LAB BLOOD ORDERAB LES Final Result [facility] [address] [place] [phone] * (ABNORMAL) Basic Metabolic Panel (01/14/2025 8:24 AM EDT) Sodium 140 135 - 145 mmol/L [facility] Potassium 3.6 3.3 - 5.1 mmol/L [facility] Chloride 109(H) 96 - 108 mmol/L [facility] Carbon Dioxide 19(L) 22 - 29 mmol/L [facility] Anion Gap 16 12 - 20 [facility] Urea Nitrogen (BUN) 12 9 - 16 mg/dL [facility] Creatinine, Serum 0.74 0.5 - 1.4 mg/dL [facility] Creatinine Clr Calc Pharmacy 87.6 [facility] Comment:Provided height and weight: 154.94 cm,45.359 kg.eGFR (calculated from the MDRD study equation) and eCrCl(calculated from the Cockcroft-Gault equation) are based ondifferent parameters and may not yield comparable results.If eCrCl result is absurd, please check patient'sheight/weight. Estimated Glomerular Filt Rate >60 [facility] Comment:Chronic Kidney Disea se: Estimated GFR < 60 mL/min/1.96e8Tfentp Kidney Disease: Estimated GFR < 15 mL/min/1.73m2 Glucose 88 60 - 115 mg/dL [facility] Calcium 8.9 8.4 - 10.2 mg/dL [facility] 01/14/2025 8:24 AM EDT 01/14/2025 8:28 AM EDT us Generic External Data Provider LAB BLOOD ORDERAB LES Final Result Performing Organization Address City/State/[facility] Co de Phone Number [facility] [address] [place] [phone] * Influenza A B2 ID NOW ([facility]) (01/13/2025 10:26 PM EDT) IDNOW SERIAL# [id number] [facility] Influenza A Negative Negative [facility] Influenza B2 Negative Negative [facility] Influenza A B2 Note See Note [facility] Comment:The Gonzalez ID NOW In fluenza [...] LAB MICROBIOLOGY - GENERAL ORDERABLES Final Result [facility] [address] [place] [phone] * COVID-19 ID NOW ([facility]) (01/13/2025 10:26 PM EDT) IDNOW SERIAL# [id number] [facility] COVID-19 TEST Negative Negative [facility] COVID-19 NOTE See Note [facility] Comment: Results are for the identification of SARS-CoV2 RNA. TheSARS-CoV2 RNA is generally detectable in respiratory samplesduring the acute phase of infection. Positive results areindicative of the presence of SARS-CoV-2 RNA; clinicalcorrelation with patient history and other diagnosticinformation is necessary to determine patient infectionstatus. Positive results do not rule out bacterial infectionor co- infection with other viruses.Testing facilities within the [facility] and itsterritories are required to report [...] use by authorized laboratories.Testing performed on the [facility] ID NOW utilizing NAAT. 01/13/2025 10:2 6 PM EDT 01/13/2025 10:29 PM EDT us Generic External Data Provider LAB MOLECULAR ISABEL GNOSTICS ORDERABLES Final Result [facility] [address] [place] [phone] * Chlamydia/N. Gonorrhoeae RNA, TMA, Vagina (11/06/2024 11:10 AM EDT) CT PCR NOT DETECTED Not Detect. [facility] Comment:A not detected test result does [...] psychologicalconsequences. NG PCR NOT DETECTED Not Detect. [facility] Comment:A not detected test result does [...] EDT 11/06/2024 4:23 PM EDT Andressa Capps CNM LAB MICROBIOLOGY - GENERA L ORDERABLES Final Result [facility] [address] [place] [phone] from Last 3 Months or Most Recently Relevant to Health Maintenance Insurance [employer] [facility] Care Teams [employer] Division Manager Relationship Specialty Start Date End Date Peggy Martin DO [address] [place] [phone] PCP - General Pediatrics 03/28/18 ySl Muniz Waiter And Cashier 02/13/24
--- OUTSIDE RECORDS SUMMARY | 2025-02-07 19:00 | XMS_ITS | Encounter Summary ---
Author Organization [employer] Address [address] [place] [address] Care Team Providers Care Associate Professor Of Physics Name Role Phone Peggy Martin DO Primary Care Provider [phone] Reason for Visit * Reason Onset Date Comments Chart Prep 02/05/2025 Encounter Details Date Type Department Care Team ([facility] st Contact Info) Description 02/05/[address] [facility] [address] [place], [place] [phone] Peggy Martin DO [address] [place], [place] [phone] Chart Prep Social History Tobacco Use Types Packs/Day Years [...] encounter Miscellaneous Notes * Telephone Encounter - Rafaela Jose [place] - 02/05/2025 2:03 PM EST Chart Prep Labs: done Images: done Referrals: not applicable Vaccines due: Covid, Flu, PCV20, MCV4, and HPV Screenings: Hearing/Vision and PISQ, Hep C Screening, HIV Screening Overdue care gaps: PHQ-9 and DEE-7 documented in this encounter Plan of Treatment Not on file documented as of this encounter Visit Diagnoses Not on filedocumented in this encounter Additional Health Concerns Assessment Noted Time PHQ-9 Depression Total Score: 12 025 4:48 PM EDT documented as of this encounter Care Teams Associate Professor Of Physics Relationship Specialty Start Date End Date Peggy Martin DO [address] [place] [phone] PCP - General Pediatrics 03/28/18 Syl Muniz Interlocking Machine Operator 02/13/24 documented as of this encounter
--- OUTSIDE RECORDS SUMMARY | 2025-02-07 19:00 | XMS_ITS | Encounter Summary ---
Author Organization [employer] Address [address] [facility] [address] [place] [address] Care Team Providers Care Occupational Nurse Name Role Phone Peggy Martin DO Primary Care Provider Syl Lucero Unavailable [phone] Reason for Visit * Reason Comments Med Refill Encounter Details Date Type Department Care Team (Late st Contact Info) Description 05/15/2022 Refill [facility] [address] [place] [phone] Peggy Martin DO [address] [place], [place] [phone] ADHD (attention deficit hyperactivity disorder), combined type [...] hyperactivity documented in this encounter Care Teams Occupational Nurse Relationship Specialty Start Date End Date Peggy Martin DO [address] [place] [phone] PCP - General Pediatrics 03/28/18 Syl Lucero Registered Nurse 01/14/25 01/14/25 Syl Muniz Power Station Operator 02/13/24 documented as of this encounter
--- OUTSIDE RECORDS SUMMARY | 2025-02-07 19:00 | XMS_ITS | Encounter Summary ---
Author Organization [employer] Address [address] [facility] [address] [place] [address] Care Team Providers Care 4Th Grade Math Teacher Name Role Phone Peggy Martin DO Primary Care Provider [phone] Syl Lucero Unavailable [phone] Reason for Visit * Reason Comments Med Refill Encounter Details Date Type Department Care Team (Late st Contact Info) Description 12/27/2022 Refill [facility] [address] [place] [address] Peggy Martin DO [address] [place], [place] [phone] Attention deficit hyperactivity disorder (ADHD), predominantly inattentive [...] documented as of this encounter Care Teams 4Th Grade Math Teacher Relationship Specialty Start Date End Date Peggy Martin DO [address] [place] [phone] PCP - General Pediatrics 03/28/18 Syl Lucero Registered Nurse 01/14/25 01/14/25 Syl Muniz Generator Man 02/13/24 documented as of this encounter
[2025-02-07 22:10] VITALS: BP 125/78; PULSE 78; RESP 14; TEMP 36.3; O2SAT 99
[2025-02-07 22:24] LABS: Appearance Urine Clear; Glucose Urine UA Negative (Negative); PH 7.0 (5.0-9.0); Specific Gravity - Urine 1.020 (1.005-1.025); UMIC TRIGGER UACC YES
[2025-02-08] MEDS: Magnesium Hydrox/Alum Hydrox 30 ML ORAL.SUSP PO (01:29)
[2025-02-08 02:14] VITALS: BP 109/85; PULSE 85; RESP 18; TEMP 36.2; O2SAT 98
== END 2025-02-08 02:31 | disposition home or self-care (01) ==
PROVIDERS: Physician Assistant; Emergency Provider Emergency Medicine Emergency Medical Services
DX: R10.13 Epigastric pain (principal); R11.2 Nausea with vomiting, unspecified; R19.7 Diarrhea, unspecified; F12.90 Cannabis use, unspecified, uncomplicated; Z79.899 Other long term (current) drug therapy
CPT/HCPCS: 36415; 80053; 81001; 83690; 83735; 84702; 85025; 99284; 99285; J1200; J1790; J1885; J2405; J2470; J2765